=== PATIENT | male | born 1955 | race Caucasian/White ===

== ENCOUNTER → 2019-04-08 14:37 | Outpatient (BNVA) | payer OTHER, SELFPAY | PROVIDERS: Visit Provider Urology | DX: R97.20 Elevated prostate specific antigen [PSA] (principal) | CPT/HCPCS: 81001; 84153 ==

== ENCOUNTER 2019-08-10 06:34 | Outpatient (CLI) | payer OTHER, SELFPAY ==
--- NOTE | 2019-08-10 06:52 | US_ITS ---
WS: [id number] RIGHT UPPER QUADRANT ULTRASOUND HISTORY: ELEVATED LABS COMPARISON: None available. Liver: 20.3 cm in length. Markedly enlarged liver with diffuse hepatic steatosis. The entire liver is not well evaluated due to attenuation. No mass or bile duct dilatation. Gallbladder: Prior cholecystectomy. CBD: Not identified. Pancreas: Not visualized. Right kidney: 12.7 cm in length. Normal echogenicity with no mass or hydronephrosis. Aorta and IVC: Not visualized. No ascites. US/US gall bladder [id number] IMPRESSION: 1. Significantly limited evaluation of the RIGHT upper quadrant due to body pino bitus. 2. Prior cholecystectomy. 3. Markedly enlarged liver with hepatic steatosis.
== END 2019-08-10 06:35 | disposition home or self-care (01) ==
PROVIDERS: Family Provider Nurse Practitioner; Visit Provider Nurse Practitioner
DX: R94.5 Abnormal results of liver function studies (principal); R16.0 Hepatomegaly, not elsewhere classified; K76.0 Fatty (change of) liver, not elsewhere classified
CPT/HCPCS: 76705

== ENCOUNTER → 2019-08-13 15:15 | Outpatient (BNVA) | payer OTHER, SELFPAY | PROVIDERS: Family Provider Nurse Practitioner; Referring Provider Nurse Practitioner; Visit Provider Specialist | DX: M25.562 Pain in left knee (principal) | CPT/HCPCS: 73560; 73565 ==

== ENCOUNTER 2020-03-21 06:25 | Outpatient (CLI) | payer OTHER, SELFPAY ==
--- NOTE | 2020-03-21 06:34 | ECG_ITS ---
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 Interpretive Statements NAME OF STUDY: LEXISCAN SESTAMIBI STRESS TEST INDICATION: Chest Pain PROCEDURE: At the baseline, the EKG revealed normal sinus rhythm with some nonspecific T wave changes.. The baseline blood pressure was 176/93 mm Hg with a heart rate of 66 beats/min. Lexiscan was infused over a period of 20 seconds. A total of 0.4 milligrams of Lexiscan was infused. The stress phase was continued for a total of 5 minutes. Heart rate at the end of the stress phase was 76 with a blood pressure 188/90. The EKG at the peak infusion revealed no significant changes. Sestamibi was injected 20 seconds after the Lexiscan infusion. Blood pressure at the end of the recovery phase was 169/86 with a heart rate of 75 per minute. CONCLUSION: 1. No significant EKG changes with the LexiScan infusion 2. No LexiScan induced chest pain or cardiac arrhythmia 3. Normal blood pressure and heart rate response 4. Sestamibi/sestamibi perfusion scan pending; see separate report. Electronically Signed On 03-31-2020 9:39:57 REEL WINDER by Poonam Calderon M.D. [email or web address]
--- NOTE | 2020-03-21 06:35 | NMCV_ITS ---
NM edie perf SPECT r/s* [id number] Cristina Tan Age: 64 Gender: M : 1955 Exam Date: 03/21/2020 07:50 Ordering Phys: Poonam Calderon MD ([email or web address]) Technologist: JACKIE Crump Exam Location: [facility] Indications: CHEST PAIN STRESS TEST Please see separate stress test report in [facility] for full findings IMAGE PROTOCOL Rest/Stress 1 Lexiscan Day Radiopharmaceutical Dose (mCi) Administration Site Administered by Rest: Tc-99m 11.0 IV JACKIE Crump Sestamibi Stress:Tc-99m 33.0 IV JACKIE De Guzman Sestamibi Rest: 21-Mar-2020 60 Discovery 630 Stress: 21-Mar-2020 30 Discovery 630 0.4mg Lexiscan. Supine position only as patient was unable to lay prone. SPECT RESULTS Technical Quality: Good Raw Data Analysis: Soft tissue attenuation Image Corrections: Patient motion artifact - motion correction applied to rest and stress images. Summed Stress Score: 2 Summed Rest Score: 1 Summed Difference Score: 2 PERFUSION FINDINGS A small area decreased uptake in the mid and apical inferior and in the LV apex. Some reversibility was noted in this region at rest. FUNCTIONAL RESULTS (calculated via Gated SPECT) Stress Image LV EF (%): 60 Stress EDV (mL):129 TID: 1.02 Stress ESV (mL):51 FUNCTIONAL FINDINGS: Segmental wall motion analysis revealed mild hypokinesia of the LV apex IMPRESSIONS 1. Myocardial perfusion may revealing a small area of decreased uptake in the mid and apical inferior and LV apex with some reversibility suggestive of ischemia in distribution of the right coronary artery. 2. Normal LV ejection fraction 60%. 3. LV wall motion analysis revealing no gross wall motion normalities. 4. Slightly elevated LV volume. The end-systolic volume was 51 mL No similar previous studies are available for comparison Dr Poonam Calderon MD FAC (Electronically Signed) Final Date: 21 March 2020 18:03 S
[2020-03-21 06:51] VITALS: BMI 48.8
[2020-03-21] MEDS: regadenoson 0.4 Mg/5 ml Syringe IVP (08:32)
[2020-03-21 08:52] VITALS: BP 169/86; PULSE 80
== END 2020-03-21 06:26 | disposition home or self-care (01) ==
LOC: CDL 06:25
PROVIDERS: PCP Nurse Practitioner; Visit Provider Internal Medicine Cardiovascular Disease
DX: R06.02 Shortness of breath (principal); R94.31 Abnormal electrocardiogram [ECG] [EKG]; R07.9 Chest pain, unspecified
CPT/HCPCS: 78452; 93017; A9500; J2785

== ENCOUNTER 2020-03-23 14:16 | Outpatient (CLI) | payer OTHER, SELFPAY ==
--- NOTE | 2020-03-23 15:00 | USCV_ITS ---
Cristina Tan Age: 64 Gender: M : 1955 Exam Date: 03/23/2020 15:13 Ordering Phys: Poonam Calderon MD ([email or web address] Technologist: Yusuf Felix [place] [facility] [place]: FEM POP BY PASS ON RT CLAUDICATION IN BOTH LEGS Risk Factors: Smoker Previous Vascular Surgery: RIGHT LEFT BP: 136.0 / 70.00 BP: 130.0/ 70.00 0 0 Waveform Velocity (cm/s) Velocity (cm/s) Waveform Monophasic 77.2 Iliac Prox 62.8 Monophasic Monophasic Iliac Mid Monophasic 84.9 62.8 Monophasic 69.5 Iliac Distal 104.7 Monophasic Monophasic 80.5 ROUTE RELIEF DRIVER 66.2 Monophasic Monophasic 73.9 SFA Prox 147.6 Monophasic Monophasic SFA Mid 132.1 Monophasic Monophasic SFA Dist 66.8 Monophasic Monophasic 50.7 POP 52.8 Monophasic Monophasic 55.1 SUPERVISOR CELL MAINTENANCE 74.6 Monophasic Monophasic 54.0 DPA 38.5 Monophasic 0.5 ILTTLE 0.5 FINDINGS RT FEM POP BY PASS Patent femoral popliteal bypass graft Seeing LITTLE of 0.5 bilaterally Monophasic waveforms bilaterally CONCLUSIONS Abnormal resting ABIs bilaterally, consistent with moderately severe peripheral arterial disease Patent femoral-popliteal bypass graft? 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 No similar previous studies are available for comparison Dr Poonam Calderon MD [facility] (Electronically Signed) Final Date: 23 March 2020 18:09 S
--- NOTE | 2020-03-23 15:45 | USCV_ITS ---
Cristina Tan Age: 64 Gender: M : 1955 Exam Date: 03/23/2020 15:43 Ordering Phys: Poonam Calderon MD ([email or web address]) Technologist: Yusuf Felix Exam Location: [facility] [place] Indication: OTHER CHEST PAIN BP: 136 / 70 HR: 72 Rhythm: Sinus Technical Quality: Adequate MEASUREMENTS (Male / Female) Normal Values 2D ECHO LV Diastolic Diameter PLAX 4.7 cm 4.2 - 5.9 / 3.9 - 5.3 cm LV Systolic Diameter PLAX 3.0 cm IVS Diastolic Thickness 1.9 cm 0.6 - 1.0 / 0.6 - 0.9 cm IVS Systolic Thickness 2.5 cm LVPW Diastolic Thickness 1.6 cm 0.6 - 1.0 / 0.6 - 0.9 cm LVPW Systolic Thickness 1.8 cm LVOT Diameter 2.0 cm LV Ejection Fraction 2D Teich 61.6 % LV Ejection Fraction MOD 2C 53.7 % LV Ejection Fraction 2C AL 54.4 % LA Diameter 3.5 cm LA Width 4.6 cm LA Height 5.2 cm RA Width 4.0 cm RA Height 4.8 cm Aorta at Sinotubular Diameter 2.9 cm M-MODE LV Diastolic Diameter MM 5.1 cm 4.2 - 5.9 / 3.9 - 5.3 cm LV Systolic Diameter MM 4.8 cm LV Ejection Fraction MM Teich 12.7 % IVS Diastolic Thickness MM 1.2 cm 0.6 - 1.0 / 0.6 - 0.9 cm IVS Systolic Thickness MM 2.0 cm LVPW Diastolic Thickness MM 1.0 cm 0.6 - 1.0 / 0.6 - 0.9 cm LVPW Systolic Thickness MM 1.8 cm Aortic Annulus Diameter 3.1 cm LA Ao Ratio MM 1.1 MV E Point Septal Separation 0.7 cm DOPPLER AV Peak Velocity 134.0 cm/s LVOT Peak Velocity 107.0 cm/s AV Area Cont Eq vti 2.6 cm squared AV Area Cont Eq pk 2.6 cm squared MV Area PHT 2.9 cm squared Mitral E to A Ratio 0.9 MV E' Velocity 35.5 cm/s Mitral E to MV E' Ratio 7.6 Mitral E to LV E' Lateral Ratio 8.3 Mitral E to LV E' Septal Ratio 7.1 TR Peak Velocity 150.3 cm/s TR Peak Gradient 9.0 mmHg PV Peak Velocity 78.0 cm/s RV Acceleration Time 0.1 s RV Ejection Time 0.3 s RV AcT/ET 0.4 FINDINGS Left Ventricle Possibly normal LV size and ejection fraction. Segmental wall motion analysis difficult because of the poor ultrasonic window.Grade I/IV diastolic dysfunction (abnormal relaxation filling pattern), normal to mildly elevated filling pressures. Right Ventricle The right ventricle is normal in size and function. Right Atrium The right atrium is normal in size. Left Atrium Mildly increased left atrial size. Mitral Valve Thickened mitral valve. Mild mitral annular calcification. Aortic Valve No gross abnormalities noted Tricuspid Valve No gross abnormalities noted Pulmonic Valve Trace pulmonary valve regurgitation. Pericardium Normal pericardium without effusion. Aorta Normal ascending aorta dimension. CONCLUSIONS Possibly normal LV size and ejection fraction. Segmental wall motion analysis difficult because of the poor ultrasonic window. Thickened mitral valve. Mild mitral annular calcification. Some features of grade 1 left ventricular diastolic dysfunction Mildly increased left atrial size. There is no pericardial effusion. No previous study is available for comparison. Dr Poonam Calderon MD [facility] (Electronically Signed) Final Date: 23 March 2020 18:19 S
== END 2020-03-23 14:17 | disposition home or self-care (01) ==
LOC: US 14:17
PROVIDERS: PCP Nurse Practitioner; Visit Provider Internal Medicine Cardiovascular Disease
DX: I70.0 Atherosclerosis of aorta (principal); I70.92 Chronic total occlusion of artery of the extremities; R07.89 Other chest pain; I73.9 Peripheral vascular disease, unspecified; R94.31 Abnormal electrocardiogram [ECG] [EKG]; I51.7 Cardiomegaly
CPT/HCPCS: 93306; 93925

== ENCOUNTER 2020-04-19 12:59 | Emergency (ER) | payer OTHER, SELFPAY ==
[2020-04-19 13:21] VITALS: BP 149/82; PULSE 114; RESP 22; TEMP 36.9; O2SAT 94; BMI 44.6
--- NOTE | 2020-04-19 14:04 | ED_ITS ---
HPI - Extremity Problem General: Chief complaint: Extremity Problem,Nontraumatic Stated complaint: BILATERAL CALF PAIN Time Seen by Provider: 04/19/20 14:04 History of Present Illness: HPI Narrative: Patient is a 65-year-old male who comes to the ED with bilateral leg pain and abdominal pain. Past medical history of PVD, diabetes type 2 and diabetic peripheral neuropathy. Patient has been dealing with nontraumatic bilateral leg pain for the past 3 to 4 months. Pain worsens when ambulating. He rates the pain 10 out of 10. He was recently seen by Dr. Calderon diagnosed with peripheral vascular disease. Ultrasound of his lower extremities were performed about a month ago and he has not heard anything back from a doctor about the results. Denies any erythema, edema or warmth and lower extremities. Patient is also having some abdominal pain in the epigastric region. He says this has been going on for the past 3 weeks. He does report increase in some belching. Associated symptoms: Deny chest pain, fever(s) or rash Review of Systems Const: Denies: fever(s), chills or fatigue Eyes: Denies: change in vision or eye discomfort ENMT: Denies: throat pain, odynophagia, nasal discharge or nasal congestion Card: Denies: chest pain, palpitations, edema, swelling of feet/ankles, dyspnea on exertion or orthopnea Resp: Denies: dyspnea, productive cough or non-productive cough GI: Reports: abdominal pain (Epigastric pain); Denies: nausea, vomiting, diarrhea, constipation or hematochezia : Denies: flank pain, difficulty urinating, dysuria or hematuria Musc: Reports: extremity pain (Bilateral lower extremity pain.); Denies: neck pain, back pain or extremity swelling Skin/Breast: Denies: rash or new lesions Neuro: Denies: headache(s), numbness in extremities or weakness in extremities PFS ED PFSH: Medical History Elevated PSA Essential hypertension GERD (gastroesophageal reflux disease) Hx of type 2 diabetes mellitus Obesity PVD (peripheral vascular disease) Sleep apnea Surgical History History of back surgery S/P cataract surgery S/P cholecystectomy S/P inguinal hernia repair S/P knee surgery S/P rotator cuff repair Family History Father , 80 Chronic kidney disease (CKD) Diabetes Mother Hypertension Diabetes CAD (coronary artery disease) Social History Smoking and tobacco status: current every day smoker Alcohol intake: never Adopted: No Caregiver/support person: No Lives independently: No Household members: spouse Marital status: Current occupational status: disabled History of recent travel: No Current gender identity: Male Physical Exam Const: COMMON NORMALS: no acute distress, patient oriented x3 and alert GENERAL APPEARANCE: cooperative and comfortable NUTRITIONAL APPEARANCE: obese morbidly obese HENMT: COMMON NORMALS: normocephalic HEAD & SCALP: normocephalic MOUTH: Normal oral and palatal mucosa present THROAT: posterior oropharynx normal and uvula midline Neck/C-Spine: COMMON NORMALS: supple GENERAL: Yes normal visual inspection Resp: COMMON NORMALS: normal respiratory effort, No retractions, No use of accessory muscles and clear to auscultation bilaterally AUSCULTATION: clear to auscultation bilaterally Cardio: COMMON NORMALS: regular rate, regular rhythm, S1 normal heart sound present, S2 normal heart sound present, No gallops present (Cardio), No clicks present (Cardio), No murmurs present (Cardio) and Peripheral pulses 2+ throughout RATE: regular rate RHYTHM: regular rhythm HEART SOUNDS: S1 normal heart sound present and S2 normal heart sound present PERIPHERAL PULSES: Peripheral pulses 2+ throughout GI: COMMON NORMALS: Normal to inspection, nondistended, normoactive bowel sounds present, Soft to palpation and no masses INSPECTION: Yes central obesity PALPATION: Yes Soft to palpation and Yes Tenderness to palpation present (GI) (Epigastric tenderness mild) : COMMON NORMALS: Yes no CVA tenderness BLADDER/KIDNEY EXAM: Yes no CVA tenderness Back/Pelvis: COMMON NORMALS: no CVA tenderness Extremity: COMMON NORMALS: normal to inspection Neuro: COMMON NORMALS: patient oriented x3 and moves all extremities SENSORIUM/ORIENTATION: Yes alert Skin: GENERAL SKIN EXAM: dry skin Course Reevaluation(s): Reevaluation #1: Patient's epigastric pain improved greatly after getting GI cocktail here in the ED. His bilateral leg pain improved with IV Dilaudid. Patient is lying comfortably in exam bed and in no acute pain or d istress currently. Time: 16:48 Vital Signs: Vital signs: Vital Signs Temperature 98.5 F 04/19/20 13:21 Pulse Rate 119 H 04/19/20 17:42 Respiratory Rate 14 04/19/20 17:42 Blood Pressure 148/76 04/19/20 17:42 Pulse Oximetry 95 04/19/20 17:42 MDM - Extremity (Nontraumatic) MDM Narrative: Medical decision making narrative: Patient is a 65-year-old male who comes to the ED with bilateral leg pain and epigastric pain. Patient has a past medical history of peripheral vascular disease, GERD, type 2 diabetes. Vital signs stable. Exam findings -epigastric tenderness upon palpation. Lower extremities appear unremarkable and there is no erythema, warmth and pedal pulse 2+ bilaterally. CBC was unremarkable. Sodium 130 and potassium 3.3 rest of CBC and CMP was unremarkable. H. pylori negative ultrasound duplex arterial lower extremities bilaterally shows ABIs of 0.9 and left and 0.7 and right. No other acute changes compared to ultrasound of arterial lower extremities done on March 23, 2020. Patient was given GI cocktail and epigastric pain completely resolved. He was given IV Dilaudid to help with his lower extremity pain and the symptoms greatly improved. He was also given half a liter of fluids. Patient diagnosed with GERD, hyponatremia and peripheral vascular disease. He was discharged home with a prescription for Carafate and some tramadol for pain. Patient is currently being scheduled to see a vascular surgeon through the [facility]. Return to ED precautions given. Patient understood agree with plan. Lab Data: Attestation: I reviewed the patient's lab results. Labs: Lab Results 04/19/20 04/19/20 04/19/20 Range/Units 15:05 15:05 15:05 WBC 7.6 (4.0-10.0) 10^3/ uL RBC 5.21 (4.1-5.3) 10^6/u L Hgb 16.4 (11.7-16.6) g/dL Hct 46.8 (42.0-52.0) % MCV 89.8 (80-94) fL MCH 31.5 (28.0-34.0) pg MCHC 35.0 (30.0-36.0) g/dL RDW 12.7 (12.1-15.1) % Plt Count 273 (130-400) 10^3/c mm MPV 9.4 (7.4-10.4) fL Neut % (Auto) 67.0 % Lymph % (Auto) 17.8 % [place] % (Auto) 13.2 % Eos % (Auto) 0.4 % Baso % (Auto) 0.8 % Neut # (Auto) 5.07 (1.8-7.7) 10^3/u L Lymph # (Auto) 1.4 (0.8-4.8) 10^3/u L [place] # (Auto) 1.0 H (0.2-0.9) 10^3/u L Eos # (Auto) 0.0 (0.0-0.8) 10^3/u L Baso # (Auto) 0.1 (0.0-0.1) 10^3/u L Nucleated RBC % (a uto) 0 % Nucleated RBCs # 0.0 /100WBC Sodium 130 L (136-145) mmol/L Potassium 3.3 L (3.5-5.1) mmol/L Chloride 95 L (98-107) mmol/L Carbon Dioxide 21 L (22-29) mmol/L Anion Gap 17.3 (5-19) BUN 17 (8-23) mg/dL Creatinine 1.0 (0.7-1.2) mg/dL GFR Calculation 75.5 L (90-130) mL/min Glucose 198 H (65-115) mg/dL Calculated Osmolal ity 277 L (285-295) mOsm/k g Calcium 9.6 (8.5-10.5) mg/dL Total Bilirubin 0.6 (0.15-1.2) mg/dL AST 31 (0-40) U/L ALT 22 (0-41) U/L Alkaline Phosphata se 129 (40-130) IU/L Total Protein 8.3 (6.6-8.7) g/dL Albumin 4.2 (3.5-5.2) g/dL Globulin 4.1 (1.3-4.6) g/dL Lipase 18 (13-60) U/L H. pylori IgG Anti body Negative (Negative) Imaging Data^: US Vascular: Attestation: I personally reviewed and interpreted this imaging study as follows: Radiologist's impression: Ultrasound duplex arterial lower extremities bilateral?ABIs 0.9 in left and 0.7 and right. No other acute change compared to ultrasound done on March 23. Discharge Plan Discharge Patient Disposition: Home Clinical Impression: PVD (peripheral vascular disease), Hyponatremia Gastroesophageal reflux disease Qualifiers: Esophagitis presence: esophagitis presence not specified Qualified Code(s): K21.9 - Gastro-esophageal reflux disease without esophagitis Condition: Stable Prescriptions: New sucralfate 1 gram tablet 1 g PO BID 28 Days Qty: 56 RF: 0 No Action bupropion HCl 300 mg tablet extended release 24 hr 300 mg PO QAM RF: 0 losartan 100 mg tablet 100 mg PO DAILY RF: 0 metoprolol succinate 100 mg tablet extended release 24 hr 50 mg PO DAILY RF: 0 nitroglycerin 0.4 mg tablet, sublingual 0.4 mg sublingual Q5M PRN (Reason: chest pain) 30 Days Qty: 30 RF: 3 amlodipine 5 mg tablet 5 mg PO DAILY 30 Days Qty: 30 RF: 5 pantoprazole [Protonix] 40 mg tablet,delayed release (DR/EC) 40 mg PO DAILY Qty: 90 RF: 3 cilostazol 100 mg tablet 100 mg PO BID Qty: 60 RF: 5 omeprazole 40 mg Capsule,Delayed Release(Dr/Ec) 40 mg PO DAILY RF: 0 ibuprofen 200 mg Tablet 1,000 mg PO PRN RF: 0 metformin 500 mg Tablet Extended Release 24 Hr 1,000 mg PO DAILY RF: 0 gabapentin 300 mg Tablet 300 mg PO TID RF: 0 isosorbide mononitrate 30 mg tablet extended release 24 hr 30 mg PO DAILY PRN (Reason: unknown) RF: 0 Discharge Orders: Discharge ED (Routine); Ordered 04/19/20 Ordered By: Neal Harvey Referrals: Evelina Shah FNP [Primary Care Provider] - Discharge Diet: Advance as tolerated Discharge Activity: Increase activity as tolerated Patient Instructions: Hyponatremia (ED), Peripheral Vascular Disorders (ED), Gastroesophageal Reflux Disease (ED) Activity Restrictions/Additional Instructions: Follow-up with medical provider as directed in 3 to 5 days to get sodium lab rechecked. Take medications as prescribed and continue taking all previously prescribed home meds. Return to the ER or your medical provider if condition worsens. Please read and understand discharge instructions. If any questions, please ask. Coding Level of Care Code ED Skin Therapist for Chg Fwd Exam Comprehensive
--- NOTE | 2020-04-19 14:32 | USCV_ITS ---
Cristina Tan Age: 65 Gender: M : 1955 Exam Date: 04/19/2020 15:04 Ordering Phys: Neal Harvey Technologist: Yusuf Felix [place]am [place] [facility] [place] Indication: BILATERAL LEG PAIN Risk Factors: Previous Vascular Surgery: RIGHT LEFT BP: 140.0 / 80.00 BP: 140.0/ 80.00 0 0 Waveform Velocity (cm/s) Velocity (cm/s) Waveform Biphasic 34.2 Iliac Prox 64.1 Monophasic Biphasic 52.8 Iliac Mid 62.1 Monophasic Biphasic Iliac Distal Monophasic 62.1 54.1 Biphasic 54.4 PLANT ENGINEERING SUPERVISOR 51.1 Monophasic Biphasic 59.8 SFA Prox 52.1 Monophasic Biphasic 61.4 SFA Mid 55.1 Monophasic Biphasic 59.0 SFA Dist 51.1 Monophasic Biphasic 55.2 POP 23.2 Monophasic Monophasic 41.5 HOT STAMP OPERATOR 20.8 Monophasic Monophasic 45.1 DPA 30.5 Monophasic 0.9 LITTLE 0.8 FINDINGS Slightly diminished resting ABIs bilaterally Abnormal arterial Doppler waveforms CONCLUSIONS Features of mild peripheral artery disease bilaterally based on the resting ABIs. The abnormal Doppler waveforms, may suggest a more severe arterial disease on the left side Consider exercise LITTLE to better evaluate the functional significance, if clinically indicated Dr Poonam Calderon MD [facility] (Electronically Signed) Final Date: 20 April 2020 09:27 S
[2020-04-19 15:14] LABS: Basophils # 0.1 10^3/uL (0.0-0.1); Basophils % 0.8 %; Eosinophils % 0.4 %; Hematocrit 46.8 % (42.0-52.0); Hemoglobin 16.4 g/dL (11.7-16.6); Lymphocytes # 1.4 10^3/uL (0.8-4.8); Lymphocytes % 17.8 %; Mean Corpuscular Hemoglobin 31.5 pg (28.0-34.0); Mean Corpuscular Volume 89.8 fL (80-94); Mean Platelet Volume 9.4 fL (7.4-10.4); Monocytes % 13.2 %; Neutrophils # 5.07 10^3/uL (1.8-7.7); Nucleated Red Blood Cells % 0 %; Platelet Count 273 10^3/cmm (130-400); Red Blood Count 5.21 10^6/uL (4.1-5.3); Red Cell Distribution Width 12.7 % (12.1-15.1); White Blood Count 7.6 10^3/uL (4.0-10.0)
[2020-04-19 15:42] VITALS: BP 128/57; PULSE 110; RESP 14; O2SAT 94
[2020-04-19 15:43] LABS: Alanine Aminotransferase 22 U/L (0-41); Albumin Level 4.2 g/dL (3.5-5.2); Alkaline Phosphatase 129 IU/L (40-130); Anion Gap 17.3 (5-19); Aspartate Amino Transferase 31 U/L (0-40); Blood Urea Nitrogen 17 mg/dL (8-23); Calcium 9.6 mg/dL (8.5-10.5); Carbon Dioxide 21 mmol/L (22-29); Chloride 95 mmol/L (98-107); Globulin 4.1 g/dL (1.3-4.6); Glomerular Filtration Rate 75.5 mL/min (90-130); Glucose 198 mg/dL (65-115); Lipase 18 U/L (13-60); Osmolality Calculated 277 mOsm/kg (285-295); Potassium 3.3 mmol/L (3.5-5.1); Sodium 130 mmol/L (136-145); Total Bilirubin 0.6 mg/dL (0.15-1.2); Total Protein 8.3 g/dL (6.6-8.7)
[2020-04-19] MEDS: HYDROmorphone 1 mg/mL INJ 1 mL 0.5 MG IVP (15:46)
[2020-04-19] MEDS: ondansetron 2 mg/ML SDV 2 mL 4 MG IVP (15:46)
[2020-04-19] MEDS: lidocaine 2% viscous 15 ML, aluminum-mag hydrox-simethicon 30 ML, sucralfate oral liq 1 GM PO (15:49)
[2020-04-19 16:41] LABS: H. Pylori IgG Antibody Negative (Negative)
--- NOTE | 2020-04-19 16:42 | PC.PHAR ---
pt states his takes care of his medications-pts brought in med bottles except for some of them-pts states she is unsure if the pt is taking the isodorbide and amlodipine-[facility]
[2020-04-19 17:18] VITALS: BP 137/86; PULSE 115; RESP 16; O2SAT 96
[2020-04-19] MEDS: sodium chloride 0.9% 500 ML 999 ML IV (17:18)
[2020-04-19] MEDS: potassium chloride ER 20 mEq Tablet PO (17:18)
[2020-04-19] MEDS: TRAMadol 50 mg Tablet 100 MG PO (17:41)
[2020-04-19 17:42] VITALS: BP 148/76; PULSE 119; RESP 14; O2SAT 95
== END 2020-04-19 17:43 | disposition home or self-care (01) ==
PROVIDERS: Emergency Provider Physician Assistant; PCP Nurse Practitioner
DX: I49.3 Ventricular premature depolarization (principal); E87.1 Hypo-osmolality and hyponatremia; K21.9 Gastro-esophageal reflux disease without esophagitis; Z79.84 Long term (current) use of oral hypoglycemic drugs; I10 Essential (primary) hypertension; E11.9 Type 2 diabetes mellitus without complications; F17.210 Nicotine dependence, cigarettes, uncomplicated
CPT/HCPCS: 80053; 83690; 85025; 86677; 93925; 96361; 96374; 96375; 99283; J1170; J2405; J7040

== ENCOUNTER 2020-05-26 16:44 | Emergency (ER) | payer OTHER, SELFPAY ==
[2020-05-26 16:49] VITALS: BP 194/96; PULSE 88; RESP 18; O2SAT 95; BMI 41.8
--- NOTE | 2020-05-26 17:24 | ED_ITS ---
HPI - Headache General: Chief Complaint: Headache Stated Complaint: H/A - HX OF CLUSTER MIGRAINES, STATES FEELS SAME Time Seen by Provider: 05/26/20 17:24 Source: patient Mode of arrival: ambulatory Limitations: no limitations History of Present Illness: HPI Narrative: 65-year-old male patient comes in today with a cluster migraine headache. Patient reports that he has not had one this bad in a long time. Patient has tried Excedrin Migraine with minimal to no relief. Patient reports have been recurring over the last 2 weeks. Patient appears in moderate pain. Patient reports no vomiting. Patient reports no weakness. MD elicited complaint: migraine Pertinent past history: migraines and hypertension Onset (ago): day(s) Onset description: gradually Location: right Severity: similar to previous episodes Quality & Timing: aching Exacerbating factors: light and noise Relieving factors: nothing Associated symptoms: Reports no associated symptoms Treatments prior to arrival: other (OTC Excedrin) Review of Systems General: Reports: 10 or more systems reviewed and unremarkable except in HPI and below Neuro: Reports: headache(s) PFSH ED PFSH: Medical History Elevated PSA Essential hypertension GERD (gastroesophageal reflux disease) Hx of type 2 diabetes mellitus Obesity PVD (peripheral vascular disease) Sleep apnea Surgical History History of back surgery S/P cataract surgery S/P cholecystectomy S/P inguinal hernia repair S/P knee surgery S/P rotator cuff repair Family History Father , 80 Chronic kidney disease (CKD) Diabetes Mother Hypertension Diabetes CAD (coronary artery disease) Social History Smoking and tobacco status: current every day smoker Alcohol intake: never Adopted: No Caregiver/support person: No Lives independently: No Household members: spouse Marital status: Current occupational status: disabled History of recent travel: No Current gender identity: Male Physical Exam Const: COMMON NORMALS: no acute distress and patient oriented x3 GENERAL APPEARANCE: cooperative HENMT: COMMON NORMALS: normocephalic and Normal external nose present HEAD & SCALP: normal to inspection and normocephalic NOSE: Normal external nose present MOUTH: Normal oral and palatal mucosa present Eye: GENERAL EYE: appearance normal, both eyes and all related structures Neck/C-Spine: COMMON NORMALS: full ROM Lymph: LYMPHATIC: no lymphadenopathy noted Chest: COMMONS NORMALS: normal inspection of the chest Resp: COMMON NORMALS: normal respiratory effort EFFORT & INSPECTION: Yes able to speak in complete sentences Cardio: COMMON NORMALS: regular rate and regular rhythm RATE: regular rate RHYTHM: regular rhythm GI: COMMON NORMALS: non-tender Back/Pelvis: COMMON NORMALS: thoracic and lumbar spine normal to inspection Extremity: COMMON NORMALS: normal to inspection Neuro: COMMON NORMALS: patient oriented x3 and moves all extremities Psych: COMMON NORMALS: mental status grossly normal and cooperative Skin: COMMON NORMALS: no rashes or lesions noted GENERAL SKIN EXAM: no rashes or lesions noted Course ED course: 1800, patient been given 6 mg of subcu Imitrex at 1730, reevaluation continues to have significant headache now with some nausea. We will proceed with further evaluation of a CT imaging of the brain to rule out intracranial bleeding or subarachnoid hemorrhage, who also check labs for any abnormality. Patient will be given Reglan and Benadryl for further treatment of the migraine headache. 1929, patient minimal relief of headache DHE was ordered for patient. 2029, the been 10 minutes since the DHE had been ordered been given to patient. Patient reports minimal relief not much change from prior treatment. 2154, patient reports improvement in headache. Patient wishes to go home to go to sleep. Recommended patient follow-up with primary care for further recommendations of treatment. Vital Signs: Vital signs: Vital Signs Pulse Rate 96 05/26/20 19:13 Respiratory Rate 20 H 05/26/20 21:13 Blood Pressure 199/90 05/26/20 21:14 Pulse Oximetry 92 05/26/20 19:13 MDM - Headache MDM Narrative: Medical decision making narrative: Patient came in today with a persistent headache for 4 to 5 days. Patient reports headache got worse today and he was unable to control it with Excedrin Migraine. Patient has a history of migraine headaches in which he is in the past had to have a injection of Imitrex. On exam patient has no focal neurologic deficits. Respirations are even lungs are clear to auscultation. Skin is warm and dry. Vital signs no elevated blood pressure. Differential diagnosis includes but not limited to migraine headache, hypertensive emergency, cerebral hemorrhage. Laboratory values were unremarkable. EKG showed some left ventricular hypertrophy. CT of the head indicated no intracranial bleeding or other significant abnormality. Patient was treated with several modalities to get better control of his migraine headache. We were able to eradicate the headache in which patient was comfortable to go home. Patient was recommended to follow-up with primary care for further treatment recommendations at home. Patient reported understanding and agreed to plan. Lab Data: Labs: Lab Results 05/26/20 05/26/20 Range/Units 18:20 18:20 WBC 12.4 H (4.0-10.0) 10^3/ uL RBC 4.26 (4.1-5.3) 10^6/u L Hgb 13.4 (11.7-16.6) g/dL Hct 39.8 L (42.0-52.0) % MCV 93.4 (80-94) fL MCH 31.5 (28.0-34.0) pg MCHC 33.7 (30.0-36.0) g/dL RDW 13.2 (12.1-15.1) % Plt Count 389 (130-400) 10^3/c mm MPV 9.2 (7.4-10.4) fL Neut % (Auto) 46.5 % Lymph % (Auto) 35.4 % [place] % (Auto) 10.3 % Eos % (Auto) 6.5 % Baso % (Auto) 0.9 % Neut # (Auto) 5.77 (1.8-7.7) 10^3/u L Lymph # (Auto) 4.4 (0.8-4.8) 10^3/u L [place] # (Auto) 1.3 H (0.2-0.9) 10^3/u L Eos # (Auto) 0.8 (0.0-0.8) 10^3/u L Baso # (Auto) 0.1 (0.0-0.1) 10^3/u L Nucleated RBC % (a uto) 0 % Nucleated RBCs # 0.0 /100WBC Sodium 138 (136-145) mmol/L Potassium 3.5 (3.5-5.1) mmol/L Chloride 101 (98-107) mmol/L Carbon Dioxide 25 (22-29) mmol/L Anion Gap 15.5 (5-19) BUN 10 (8-23) mg/dL Creatinine 0.7 (0.7-1.2) mg/dL GFR Calculation 113.9 (90-130) mL/min Glucose 123 H (65-115) mg/dL Calculated Osmolal ity 286 (285-295) mOsm/k g Calcium 9.4 (8.5-10.5) mg/dL Total Bilirubin 0.6 (0.15-1.2) mg/dL AST 17 (0-40) U/L ALT 12 (0-41) U/L Alkaline Phosphata se 124 (40-130) IU/L Total Protein 7.6 (6.6-8.7) g/dL Albumin 4.2 (3.5-5.2) g/dL Globulin 3.4 (1.3-4.6) g/dL Discharge Plan Discharge Patient Disposition: Home Clinical Impression: Migraine Qualifiers: Migraine type: unspecified Status migrainosus presence: with status migrainosus Intractability: not intractable Qualified Code(s): G43.901 - Migraine, unspecified, not intractable, with status migrainosus Hypertension Qualifiers: Hypertension type: unspecified Qualified Code(s): I10 - Essential (primary) hypertension Condition: Stable Prescriptions: No Action bupropion HCl 300 mg tablet extended release 24 hr 300 mg PO QAM RF: 0 losartan 100 mg tablet 100 mg PO DAILY RF: 0 metoprolol succinate 100 mg tablet extended release 24 hr 50 mg PO DAILY RF: 0 nitroglycerin 0.4 mg tablet, sublingual 0.4 mg sublingual Q5M PRN (Reason: chest pain) 30 Days Qty: 30 RF: 3 amlodipine 5 mg tablet 5 mg PO DAILY 30 Days Qty: 30 RF: 5 pantoprazole [Protonix] 40 mg tablet,delayed release (DR/EC) 40 mg PO DAILY Qty: 90 RF: 3 cilostazol 100 mg tablet 100 mg PO BID Qty: 60 RF: 5 omeprazole 40 mg Capsule,Delayed Release(Dr/Ec) 40 mg PO DAILY RF: 0 ibuprofen 200 mg Tablet 1,000 mg PO PRN RF: 0 metformin 500 mg Tablet Extended Release 24 Hr 1,000 mg PO DAILY RF: 0 gabapentin 300 mg Tablet 300 mg PO TID RF: 0 isosorbide mononitrate 30 mg tablet extended release 24 hr 30 mg PO DAILY PRN (Reason: unknown) RF: 0 Discharge Orders: Discharge ED (Routine); Ordered 05/26/20 Ordered By: Kurt Mendoza Referrals: Evelina Shah FNP [Primary Care Provider] - Discharge Diet: Usual diet Discharge Activity: Increase activity as tolerated Patient Instructions: Migraine Headache (ED), Opioid Safety Activity Restrictions/Additional Instructions: Follow-up with primary care in the morning for further discussion regarding headaches and blood pressure. Continue with routine care as directed. Return to the emergency department for new concerns. Coding Level of Care Code ED Structures Mechanic for Chg Fwd Exam Comprehensive
[2020-05-26] MEDS: SUMAtriptan 6 mg/0.5 mL SDV SUBCUT (17:43)
[2020-05-26 17:47] VITALS: BP 190/92; PULSE 84; RESP 18; O2SAT 95
--- NOTE | 2020-05-26 18:05 | CTR_ITS ---
PROCEDURE INFORMATION: Exam: CT Head Without Contrast Exam date and time: 05/26/2020 6:34 PM Age: 65 years old Clinical indication: Pain; Headache; Cluster; Additional info: Severe headache x 2 weeks TECHNIQUE: Imaging protocol: Computed tomography of the head without contrast. Radiation optimization: All CT scans at this facility use at least one of these dose optimization techniques: automated exposure control; mA and/or kV adjustment per patient size (includes targeted exams where dose is matched to clinical indication); or iterative reconstruction. COMPARISON: No relevant prior studies available. RADIATION DOSE METRICS: Total DLP (mGy-cm): 1881.53 FINDINGS: Brain: There is moderate cerebral atrophy. No intracranial mass. No intracranial hemorrhage. No acute brain ischemia. Brooks matter and white matter interfaces are preserved. No midline shift. Cerebral ventricles: No ventriculomegaly. Bones/joints: Unremarkable. No acute fracture. Paranasal sinuses: Visualized sinuses are unremarkable. No fluid levels. Mastoid air cells: Visualized mastoid air cells are well aerated. Vasculature: Scattered intracranial atherosclerosis. Soft tissues: Unremarkable. CT/CT head wo con* [id number] IMPRESSION: Negative for acute intracranial abnormality. Radiation Dose CTDIVOL = (mGy): DLP = 1881.53 (mGy-cm)
[2020-05-26 18:25] VITALS: BP 185/91
[2020-05-26 18:25] LABS: Basophils # 0.1 10^3/uL (0.0-0.1); Basophils % 0.9 %; Eosinophils # 0.8 10^3/uL (0.0-0.8); Eosinophils % 6.5 %; Hematocrit 39.8 % (42.0-52.0); Hemoglobin 13.4 g/dL (11.7-16.6); Lymphocytes # 4.4 10^3/uL (0.8-4.8); Lymphocytes % 35.4 %; Mean Corpuscular HGB Conc 33.7 g/dL (30.0-36.0); Mean Corpuscular Hemoglobin 31.5 pg (28.0-34.0); Mean Corpuscular Volume 93.4 fL (80-94); Mean Platelet Volume 9.2 fL (7.4-10.4); Monocytes # 1.3 10^3/uL (0.2-0.9); Monocytes % 10.3 %; Neutrophils # 5.77 10^3/uL (1.8-7.7); Neutrophils % 46.5 %; Nucleated Red Blood Cells % 0 %; Platelet Count 389 10^3/cmm (130-400); Red Blood Count 4.26 10^6/uL (4.1-5.3); Red Cell Distribution Width 13.2 % (12.1-15.1); White Blood Count 12.4 10^3/uL (4.0-10.0)
[2020-05-26] MEDS: metoclopramide 5 mg/mL SDV 2 mL 10 MG IVP (18:26)
[2020-05-26] MEDS: fentaNYL 50 mcg/mL INJ 2mL IVP ×2 (18:26→21:13)
[2020-05-26] MEDS: diphenhydrAMINE 50 mg/mL SDV 1mL 25 MG IVP (18:26)
[2020-05-26 18:46] LABS: Alanine Aminotransferase 12 U/L (0-41); Albumin Level 4.2 g/dL (3.5-5.2); Alkaline Phosphatase 124 IU/L (40-130); Anion Gap 15.5 (5-19); Aspartate Amino Transferase 17 U/L (0-40); Blood Urea Nitrogen 10 mg/dL (8-23); Calcium 9.4 mg/dL (8.5-10.5); Carbon Dioxide 25 mmol/L (22-29); Chloride 101 mmol/L (98-107); Creatinine Clr Calc Pharmacy 152.1838; Globulin 3.4 g/dL (1.3-4.6); Glomerular Filtration Rate 113.9 mL/min (90-130); Glucose 123 mg/dL (65-115); Osmolality Calculated 286 mOsm/kg (285-295); Potassium 3.5 mmol/L (3.5-5.1); Sodium 138 mmol/L (136-145); Total Bilirubin 0.6 mg/dL (0.15-1.2); Total Protein 7.6 g/dL (6.6-8.7)
[2020-05-26 19:13] VITALS: BP 135/91; PULSE 96; RESP 18; O2SAT 92
[2020-05-26] MEDS: dihydroergotamine 1 mg/mL Inj IVP (20:30)
[2020-05-26 21:13] VITALS: RESP 20
[2020-05-26] MEDS: promethazine 25 mg/mL SDV 1 mL XX (21:13)
[2020-05-26 21:14] VITALS: BP 199/90
[2020-05-26] MEDS: cloNIDine 0.1 mg Tablet PO (21:14)
== END 2020-05-26 22:22 | disposition home or self-care (01) ==
PROVIDERS: Emergency Provider Nurse Practitioner Family; PCP Nurse Practitioner
DX: G43.901 Migraine, unspecified, not intractable, with status migrainosus (principal); I10 Essential (primary) hypertension; E11.9 Type 2 diabetes mellitus without complications; F17.210 Nicotine dependence, cigarettes, uncomplicated
CPT/HCPCS: 70450; 80053; 85025; 96372; 96374; 96375; 96376; 99284; J1110; J1200; J2550; J2765; J3010; J3030

== ENCOUNTER → 2020-09-07 10:45 | Outpatient (BNVA) | payer OTHER, SELFPAY | PROVIDERS: PCP Nurse Practitioner; Referring Provider Nurse Practitioner; Visit Provider Urology | DX: R97.20 Elevated prostate specific antigen [PSA] (principal) | CPT/HCPCS: 81003; 84153 ==

== ENCOUNTER 2021-02-06 16:18 | Emergency (ER) | payer OTHER, MEDICARE, SELFPAY ==
[2021-02-06 16:40] VITALS: BP 192/92; PULSE 72; RESP 18; TEMP 36.8; O2SAT 96; BMI 44.0
--- NOTE | 2021-02-06 17:11 | CTR_ITS ---
PROCEDURE INFORMATION: Exam: CT Right Lower Extremity Without Contrast, Hip Exam date and time: 02/06/2021 5:11 PM Age: 65 years old Clinical indication: Pain; Hip; Right; Prior surgery; Surgery type: Stents x 3 weeks ago; Additional info: Pain/recent angiogram right groin TECHNIQUE: Imaging protocol: CT of the Right lower extremity without contrast was performed. Exam focused on the hip. Study includes only in the region the right hip and right groin. Radiation optimization: All CT scans at this facility use at least one of these dose optimization techniques: automated exposure control; mA and/or kV adjustment per patient size (includes targeted exams where dose is matched to clinical indication); or iterative reconstruction. COMPARISON: US gall bladder [id number] 08/10/2019 7:06 AM RADIATION DOSE METRICS: Total DLP (mGy-cm): 2365.87 FINDINGS: Bones/joints: No fracture is identified. There is some mild degenerative spurring from the acetabular margins. No acute abnormality. Soft tissues: There are postsurgical changes in the right groin with well-healed scar anteriorly. There is no unusual fluid collection or hematoma identified on this examination. Vasculature: Atherosclerotic calcifications are seen in the femoral vessels. The lower end of right external iliac stent is noted. Lymph nodes: There are small right inguinal lymph nodes. Urinary bladder: There is diffuse thickening of the urinary bladder wall which may represent muscular hypertrophy. Please correlate for any clinical signs or symptoms of urinary tract infection. Impression: Reproductive: The prostate demonstrates moderate nonspecific enlargement. The seminal vesicles are normal. CT/CT hip RT wo con* [id number] IMPRESSION: No fracture is identified.
--- NOTE | 2021-02-06 17:16 | W.ED.EXTPRO ---
HPI - Extremity Problem General: Chief complaint: Extremity Problem,Nontraumatic Stated complaint: Extreme Hip pain sent by [facility] Time Seen by Provider: 02/06/21 17:04 History of Present Illness: HPI Narrative: Patient presents from [facility] with history of angiogram done 2 weeks ago. Patient states he has been having right hip pain groin pain sudden onset since then. Said a hip x-ray done which revealed mild osteoarthritis in the hip. Patient denies any injury. Patient feels it is somewhat swollen but says it is not muscle pain it is definitely more hip pain hurts to walk get up out of chair use extremity. MD Complaint: joint pain Onset (ago): day(s) Pain Consistency: constant Location: right and lower extremity Quality: aching Radiation: distal Relieving factors: immobilization Exacerbating factors: range of motion, weight bearing and walking Associated symptoms: Reports no associated symptoms; Deny chest pain, fever(s) or rash Context: other (Recent angiogram right side groin) Review of Systems Const: Denies: fever(s), chills or body aches Eyes: Denies: change in vision or blurry vision ENMT: Denies: throat pain or nasal congestion Card: Denies: chest pain or dyspnea on exertion Resp: Denies: dyspnea, productive cough or non-productive cough GI: Denies: abdominal pain, nausea or vomiting : Denies: difficulty urinating Musc: Reports: joint pain (Right pelvis); Denies: extremity pain Skin/Breast: Denies: rash Neuro: Denies: headache(s) Psych: Denies: anxiety or depression Cal/Lymph: Denies: easy bruising PFSH ED PFSH: Medical History (Updated 02/06/21 @ 19:13 by BANDAR Leal) Elevated PSA Essential hypertension GERD (gastroesophageal reflux disease) Hx of type 2 diabetes mellitus Obesity PVD (peripheral vascular disease) Sleep apnea Surgical History (Updated 12/27/20 @ 09:02 by Tiffany Esteban RN) History of back surgery S/P cataract surgery S/P cholecystectomy S/P inguinal hernia repair S/P knee surgery S/P rotator cuff repair Family History Father , 80 Chronic kidney disease (CKD) Diabetes Mother , at age 82 Hypertension Diabetes CAD (coronary artery disease) Social History Smoking and tobacco status: current every day smoker Alcohol intake: never Marital status: Current occupational status: disabled History of recent travel: No Physical Exam Const: COMMON NORMALS: no acute distress, average body habitus and patient oriented x3 HENMT: COMMON NORMALS: normocephalic HEAD & SCALP: normal to inspection and normocephalic FACE & SINUS: normal facial exam Eye: COMMON NORMALS: conjunctivae normal GENERAL EYE: appearance normal, both eyes and all related structures CONJUNCTIVA: Yes conjunctivae normal Neck/C-Spine: COMMON NORMALS: no JVD Chest: COMMONS NORMALS: normal inspection of the chest Resp: COMMON NORMALS: normal respiratory effort and clear to auscultation bilaterally AUSCULTATION: clear to auscultation bilaterally Cardio: COMMON NORMALS: no JVD, regular rate and regular rhythm RATE: regular rate RHYTHM: regular rhythm GI: COMMON NORMALS: Normal to inspection, nondistended, normoactive bowel sounds present Extremity: COMMON NORMALS: normal to inspection RIGHT LOWER EXTREMITY: Yes hip joint (Painful) Neuro: COMMON NORMALS: patient oriented x3 Course Vital Signs: Vital signs: Vital Signs Temperature 98.3 F 02/06/21 16:40 Pulse Rate 72 02/06/21 16:40 Respiratory Rate 18 02/06/21 16:40 Blood Pressure 192/92 02/06/21 16:40 Pulse Oximetry 96 02/06/21 16:40 MDM - Extremity (Nontraumatic) MDM Narrative: Medical decision making narrative: Radiology studies negative. Celebrex to care patient's discomfort. X-ray report patient brought with him shows mild arthritis to the hip and the CT confirms spurring at right hip. No evidence of soft tissue damage or pseudo-aneurysm. Vital signs are stable. Patient encouraged to follow-up with the [facility] and already has orthopedic appointment scheduled. Discharge Plan Discharge Patient Disposition: Home Clinical Impression: Hip pain, right Condition: Stable Prescriptions: New Celebrex 100 mg capsule 200 mg PO BID Qty: 20 RF: 0 No Action bupropion HCl 300 mg tablet extended release 24 hr 300 mg PO QAM RF: 0 losartan 100 mg tablet 100 mg PO DAILY RF: 0 metoprolol succinate 100 mg tablet extended release 24 hr 50 mg PO DAILY RF: 0 nitroglycerin 0.4 mg tablet, sublingual 0.4 mg sublingual Q5M PRN (Reason: chest pain) 30 Days Qty: 30 RF: 3 clopidogrel 75 mg tablet 75 mg PO DAILY RF: 0 sumatriptan succinate 100 mg tablet See Rx Instructions PO .COMPLEX RF: 0 levofloxacin 500 mg tablet 500 mg PO DAILY Qty: 4 RF: 0 pantoprazole [Protonix] 40 mg tablet,delayed release (DR/EC) 40 mg PO DAILY Qty: 90 RF: 3 cilostazol 100 mg tablet 100 mg PO BID Qty: 60 RF: 5 oxycodone-acetaminophen [Percocet] 5-325 mg tablet 1 tab PO ONCE PRN (Reason: pain) 1 Days Qty: 1 RF: 0 diazepam 10 mg tablet 10 mg PO ONCE Qty: 1 RF: 0 omeprazole 40 mg Capsule,Delayed Release(Dr/Ec) 40 mg PO DAILY RF: 0 ibuprofen 200 mg Tablet 1,000 mg PO PRN RF: 0 metformin 500 mg Tablet Extended Release 24 Hr 1,000 mg PO DAILY RF: 0 gabapentin 300 mg Tablet 300 mg PO TID RF: 0 isosorbide mononitrate 30 mg tablet extended release 24 hr 30 mg PO DAILY PRN (Reason: unknown) RF: 0 Discharge Orders: Discharge ED (Routine); Ordered 02/06/21 Ordered By: Cleve Cisse Referrals: Evelina Shah FNP [Primary Care Provider] - Discharge Diet: Usual diet Discharge Activity: Increase activity as tolerated Activity Restrictions/Additional Instructions: Follow-up with medical provider as directed. Take medications as prescribed. Return to the ER or your medical provider if condition worsens. Please read and understand discharge instructions. If any questions ask please. Coding Level of Care Code ED Hammer Repairer for Christiano Fwd Exam Comprehensive
[2021-02-06] MEDS: CELEcoxib 200 mg Capsule 400 MG PO (18:41)
== END 2021-02-06 19:16 | disposition home or self-care (01) ==
PROVIDERS: Emergency Provider Nurse Practitioner Family; PCP Nurse Practitioner
DX: M25.551 Pain in right hip (principal); F17.210 Nicotine dependence, cigarettes, uncomplicated; K21.9 Gastro-esophageal reflux disease without esophagitis; E11.9 Type 2 diabetes mellitus without complications; Z79.84 Long term (current) use of oral hypoglycemic drugs; I10 Essential (primary) hypertension
CPT/HCPCS: 73700; 99283

== ENCOUNTER → 2021-04-24 13:54 | Outpatient (BNVA) | payer OTHER, MEDICARE, SELFPAY | PROVIDERS: PCP Nurse Practitioner; Referring Provider Nurse Practitioner; Visit Provider Specialist | DX: M25.559 Pain in unspecified hip (principal) | CPT/HCPCS: 73502 ==

== ENCOUNTER → 2021-06-14 10:04 | Outpatient (BNVA) | payer OTHER, MEDICARE, SELFPAY | PROVIDERS: PCP Nurse Practitioner; Referring Provider Nurse Practitioner; Visit Provider Surgery | DX: R13.10 Dysphagia, unspecified (principal); F17.210 Nicotine dependence, cigarettes, uncomplicated | CPT/HCPCS: 99203 ==

== ENCOUNTER 2021-07-13 07:45 | Day surgery (SDC) | payer OTHER, SELFPAY ==
[2021-07-12 09:21] VITALS: BMI 41.8
[2021-07-13 08:39] VITALS: BP 174/92; PULSE 59; RESP 20; TEMP 36.3; O2SAT 95
[2021-07-13] MEDS: sodium chloride 0.9% 1,000 ML 30 ML IV (09:07)
--- NOTE | 2021-07-13 09:21 | P.ANESASSM_ITS ---
Pre-Anesthetic Assessment Height/Weight: Height 1.8 m Weight 136.078 kg Temp Pulse Resp BP Pulse Ox 97.3 F L 59 L 20 H 174/92 95 07/13/21 08:39 07/13/21 08:39 07/13/21 08:39 07/13/21 08:39 07/13/21 08:39 Preop Diagnosis: Epigastric pain and dysphagia Operation Date: 07/13/21 09:30 Proposed Procedures p EGD 17033/r13.10(Not Applicable) - Kalia Chowdary MD Familial anesthetic complications: none Last intake: Intake Last Liquid Date 07/12/21 Last Liquid Time 22:00 Last Solid Date 07/12/21 Last Solid Time 21:00 Social Tobacco and No alcohol 1 pack(s) per day Exam alert, oriented x 3 and clear to auscultation bilaterally Airway Submandibular: within normal limits Cervical ROM: Other (previous fusion) Mallampati: Class II Dentition: false Pulmonary Chronic Obstructive Pulmonary Disease and Sleep Apnea CV/HEM Hypertension None reported Hepatic None reported GI Gastroesophageal Reflux Disease Dysphagia Metabolic Diabetes Mellitus, Hyperlipidemia and Morbid Obesity [facility] None reported Neuropsych Anxiety, Depression and Headache Anesthetic Plan ASA status: 3 Anesthesia: MAC Medications/Allergies Home Medications Medication Instructions Recorded Confirmed Last Taken Type bupropion HCl 300 mg 24 hr tablet, 300 mg PO QAM 04/08/19 07/13/21 07/12/21 History extended release losartan 100 mg tablet 100 mg PO DAILY 04/08/19 07/13/21 07/12/21 History metoprolol succinate 100 mg 50 mg PO DAILY 04/08/19 07/13/21 07/12/21 History tablet,extended release 24 hr cilostazol 100 mg tablet 100 mg PO BID #60 tab 03/10/20 07/13/21 07/12/21 Rx metformin 500 mg tablet,extended 1,000 mg PO DAILY 04/19/20 07/13/21 07/12/21 History release 24 hr omeprazole 40 mg capsule,delayed 40 mg PO DAILY 04/19/20 07/13/21 07/12/21 History release sumatriptan succinate 100 mg tablet See Rx Instructions PO .COMPLEX 09/07/20 07/13/21 07/12/21 History celecoxib 100 mg capsule (Celebrex) 200 mg PO BID #20 cap 12/07/13/21 07/12/21 Rx aspirin 81 mg tablet,delayed 81 mg PO DAILY 07/12/21 07/13/21 07/12/21 History release multivitamin 1 tab PO DAILY 07/12/21 07/13/21 07/12/21 History Allergies Allergy/AdvReac Type Severity Reaction Status Date / Time dexamethasone Allergy unknown Verified 07/13/21 08:37 hydrocodone Allergy NA Verified 07/13/21 08:37 morphine Allergy NA Verified 07/13/21 08:37 Current Medications Generic Name Dose Route Start Last Admin Trade Name Lawrence PRN Reason Stop Dose Admin Sodium Chloride 1,000 mls @ 30 mls/hr 07/13/21 08:45 07/13/21 09:07 Sodium Chloride 0.9% IV 30 mls/hr .Q24H LANCE Administration PFSH Anesthesia Medical History Elevated PSA Essential hypertension GERD (gastroesophageal reflux disease) Hx of type 2 diabetes mellitus Obesity PVD (peripheral vascular disease) Sleep apnea Surgical History History of back surgery S/P cataract surgery S/P cholecystectomy S/P inguinal hernia repair S/P knee surgery S/P rotator cuff repair Family History Father , 80 Chronic kidney disease (CKD) Diabetes Mother , at age 82 Hypertension Diabetes CAD (coronary artery disease) Social History Smoking and tobacco status: current every day smoker Alcohol intake: never Marital status: Current occupational status: disabled History of recent travel: No Data Anesthesia Cardiac Studies: Echocardiogram Ultrasound 03/23/20 Sestamibi Stress Test (Cardiology) 03/21/20
--- NOTE | 2021-07-13 09:52 | W.PM.OPSUD ---
Surgery/Procedure H&P Update DATE OF PROCEDURE: July 13, 2021 DATE H&P PERFORMED: 06/14/21 H&P UPDATE INFORMATION: I have reviewed H&P completed within last 30 days, I have examined patient prior to procedure and No changes to prior documentation PREOP DIAGNOSIS: Epigastric pain and dysphagia PRIMARY INDICATION FOR PROCEDURE: The same PLANNED PROCEDURE: Operation Date: 07/13/21 09:30 Proposed Procedures p EGD 91208/r13.10(Not Applicable) - Kalia Chowdary MD
[2021-07-13 10:36] VITALS: BP 145/59; PULSE 66; RESP 20; TEMP 36.4; O2SAT 94
[2021-07-13 10:41] VITALS: BP 145/73; PULSE 64; RESP 20; O2SAT 94
[2021-07-13 10:50] VITALS: BP 157/77; PULSE 58; RESP 20; O2SAT 96
--- NOTE | 2021-07-13 14:27 | ANE.PACU2 ---
Inpatient post-anesthesia follow up: Airway intact: Yes Vital signs: Temperature 97.5 F Pulse Rate 58 Respiratory Rate 20 Blood Pressure 157/77 Pulse Oximetry 96 Oxygen Delivery Me thod Room Air Oxygen Flow Rate Fraction of Inspir ed Oxygen Hydration adequate: Yes Nausea and vomiting: No Pain level: 1 Mental status: Baseline
== END 2021-07-13 11:08 | disposition home or self-care (01) ==
PROVIDERS: PCP Nurse Practitioner; Visit Provider Surgery
PROC: 0DJ08ZZ Inspection of Upper Intestinal Tract, Via Natural or Artificial Opening Endoscopic (ICD-10-PCS; CPT 43235; principal; 2021-07-13 09:30)
DX: R13.10 Dysphagia, unspecified (principal); R10.13 Epigastric pain; K21.00 Gastro-esophageal reflux disease with esophagitis, without bleeding; K29.70 Gastritis, unspecified, without bleeding; F17.200 Nicotine dependence, unspecified, uncomplicated; I10 Essential (primary) hypertension; J44.9 Chronic obstructive pulmonary disease, unspecified; G47.30 Sleep apnea, unspecified; E11.9 Type 2 diabetes mellitus without complications; E78.5 Hyperlipidemia, unspecified; E66.01 Morbid (severe) obesity due to excess calories; Z68.41 Body mass index [BMI] 40.0-44.9, adult; Z79.82 Long term (current) use of aspirin
CPT/HCPCS: 43239; 88305; J2704; J7030

== ENCOUNTER → 2021-08-02 09:19 | Outpatient (BNVA) | payer OTHER, SELFPAY | PROVIDERS: PCP Nurse Practitioner; Visit Provider Surgery | DX: Z09 Encounter for follow-up examination after completed treatment for conditions other than malignant neoplasm (principal); K20.90 Esophagitis, unspecified without bleeding | CPT/HCPCS: 99213 ==

== ENCOUNTER 2022-01-01 07:15 | Day surgery (SDC) | payer OTHER, SELFPAY ==
[2021-12-28 10:04] VITALS: BMI 44.6
[2022-01-01 07:43] VITALS: BP 193/90; PULSE 79; RESP 18; TEMP 36.8; O2SAT 96
[2022-01-01] MEDS: sodium chloride 0.9% 1,000 ML 30 ML IV (07:48)
[2022-01-01 07:52] LABS: Glucose Point of Care 196 mg/dL (70-110)
--- NOTE | 2022-01-01 07:55 | P.HP_ITS ---
Same Day Surgery H&P Indication for Procedure/HPI DATE OF PROCEDURE: January 01, 2022 CHIEF COMPLAINT/INDICATIONFOR SURGICAL PROCEDURE: Hematochezia PREOP DIAGNOSIS: Hematochezia PLANNED PROCEDURE: Operation Date: 01/01/22 09:00 Proposed Procedures p Colonoscopy 32372,K92.1(Not Applicable) - Luis Galan MD Medications/Allergies* Home Medications Medication Instructions Recorded Confirmed Type losartan 100 mg tablet 100 mg PO DAILY 04/08/19 01/01/22 History metoprolol succinate 100 mg 50 mg PO DAILY 04/08/19 01/01/22 History tablet,extended release 24 hr metformin 500 mg tablet,extended 1,000 mg PO DAILY 04/19/20 01/01/22 History release 24 hr omeprazole 40 mg capsule,delayed 40 mg PO DAILY 04/19/20 01/01/22 History release sumatriptan succinate 100 mg tablet See Rx Instructions PO .COMPLEX 09/07/20 01/01/22 History aspirin 81 mg tablet,delayed 81 mg PO DAILY 07/12/21 01/01/22 History release Fish Oil 1 tab PO DAILY 12/28/21 01/01/22 History Allergies/Adverse Reactions Allergy/AdvReac Type Severity Reaction Status Date / Time dexamethasone Allergy unknown Verified 01/01/22 07:32 hydrocodone Allergy NA Verified 01/01/22 07:32 morphine Allergy NA Verified 01/01/22 07:32 Current Medications: Generic Name Dose Route Start Last Admin Trade Name Freq PRN Reason Stop Dose Admin Sodium Chloride 1,000 mls @ 30 mls/hr 01/01/22 07:30 01/01/22 07:48 Sodium Chloride 0.9% IV 30 mls/hr .Q24H LANCE Administration Pertinent History/Comorbid Conditions* Medical History (Updated 12/26/21 @ 15:44 by Luis Galan MD) Elevated PSA Essential hypertension GERD (gastroesophageal reflux disease) Hx of type 2 diabetes mellitus Obesity PVD (peripheral vascular disease) Sleep apnea Surgical History (Updated 04/08/19 @ 14:45 by Zara Tate APRN) History of back surgery S/P cataract surgery S/P cholecystectomy S/P inguinal hernia repair S/P knee surgery S/P rotator cuff repair Family History (Updated 04/02/19 @ 16:31 by Isabella Bernal RN) Father, 80 Mother, at age 82 Diabetes Father Mother CAD (coronary artery disease) Mother Chronic kidney disease (CKD) Father Hypertension Mother Social History Smoking and tobacco status: current every day smoker Alcohol intake: never Marital status: Current occupational status: disabled History of recent travel: No Pertinent Exam Findings alert, oriented x 3, clear to auscultation bilaterally, regular rate & rhythm, operative site marked and procedure specific exam findings Recommendations Surgery/Procedure today Coding Level of Care Code Acute 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
--- NOTE | 2022-01-01 07:57 | ANES.PREANE2 ---
Pre-Anesthetic Assessment Height/Weight: Height 1.8 m Weight 145.15 kg Temp Pulse Resp BP Pulse Ox O2 Del Method 98.3 F 79 18 193/90 96 01/01/22 07:43 01/01/22 07:43 01/01/22 07:43 01/01/22 07:43 01/01/22 07:43 01/01/22 07:43 Preop Diagnosis: Hematochezia Operation Date: 01/01/22 09:00 Proposed Procedures p Colonoscopy 76255,K92.1(Not Applicable) - Luis Galan MD Familial anesthetic complications: None Was Beta Twin taken within 24 hours: Yes Was Clonidine taken within 24 hours: N/A Last intake: Intake Last Liquid Date 12/31/21 Last Liquid Time 23:00 Last Solid Date 12/30/21 Last Solid Time 20:00 Social Tobacco and No alcohol Exam alert, oriented x 3, clear to auscultation bilaterally and regular rate & rhythm Airway Mallampati: Class IV Dentition: false Comments: Comments: full martin Pulmonary Chronic Obstructive Pulmonary Disease and Sleep Apnea CV/HEM Hypertension and Peripheral Vascular Disease GI Gastroesophageal Reflux Disease Metabolic Diabetes Mellitus, Hyperlipidemia and Morbid Obesity Anesthetic Plan ASA status: 3 Anesthesia: MAC Risk of > 500 ml blood loss (7ml/kg in children): No Medications/Allergies Home Medications Medication Instructions Recorded Confirmed Last Taken Type losartan 100 mg tablet 100 mg PO DAILY 04/08/19 01/01/22 12/31/21 History metoprolol succinate 100 mg 50 mg PO DAILY 04/08/19 01/01/22 12/31/21 History tablet,extended release 24 hr cilostazol 100 mg tablet 100 mg PO BID #60 tabs 03/10/20 01/01/22 12/31/21 Rx metformin 500 mg tablet,extended 1,000 mg PO DAILY 04/19/20 01/01/22 12/31/21 History release 24 hr omeprazole 40 mg capsule,delayed 40 mg PO DAILY 04/19/20 01/01/22 12/31/21 History release sumatriptan succinate 100 mg tablet See Rx Instructions PO .COMPLEX 09/07/20 01/01/22 12/31/21 History celecoxib 100 mg capsule (Celebrex) 200 mg PO BID #20 caps 02/06/21 01/01/22 12/31/21 Rx aspirin 81 mg tablet,delayed 81 mg PO DAILY 07/12/21 01/01/22 12/31/21 History release Fish Oil 1 tab PO DAILY 12/28/21 01/01/22 12/31/21 History Allergies Allergy/AdvReac Type Severity Reaction Status Date / Time dexamethasone Allergy unknown Verified 01/01/22 07:32 hydrocodone Allergy NA Verified 01/01/22 07:32 morphine Allergy NA Verified 01/01/22 07:32 Current Medications Generic Name Dose Route Start Last Admin Trade Name Lawrence PRN Reason Stop Dose Admin Sodium Chloride 1,000 mls @ 30 mls/hr 01/01/22 07:30 01/01/22 07:48 Sodium Chloride 0.9% IV 30 mls/hr .Q24H LANCE Administration PFSH Anesthesia Medical History Elevated PSA Essential hypertension GERD (gastroesophageal reflux disease) Hx of type 2 diabetes mellitus Obesity PVD (peripheral vascular disease) Sleep apnea Surgical History History of back surgery S/P cataract surgery S/P cholecystectomy S/P inguinal hernia repair S/P knee surgery S/P rotator cuff repair Family History Father , 80 Chronic kidney disease (CKD) Diabetes Mother , at age 82 Hypertension Diabetes CAD (coronary artery disease) Social History Smoking and tobacco status: current every day smoker Alcohol intake: never Marital status: Current occupational status: disabled History of recent travel: No Data Anesthesia Cardiac Studies: Echocardiogram Ultrasound 03/23/20 Sestamibi Stress Test (Cardiology) 03/21/20
[2022-01-01 09:57] VITALS: BP 162/77; PULSE 83; RESP 16; TEMP 36.3; O2SAT 96
--- NOTE | 2022-01-01 13:13 | ANE.PACU2 ---
Inpatient post-anesthesia follow up: Airway intact: Yes Vital signs: Temperature 97.3 F Pulse Rate 83 Respiratory Rate 16 Blood Pressure 162/77 Pulse Oximetry 96 Oxygen Delivery Me thod Nasal Cannula Oxygen Flow Rate 3 Fraction of Inspir ed Oxygen Hydration adequate: Yes Nausea and vomiting: No Pain level: 1 Mental status: Baseline
== END 2022-01-01 10:25 | disposition home or self-care (01) ==
PROVIDERS: PCP Nurse Practitioner; Visit Provider Internal Medicine
PROC: 0DJD8ZZ Inspection of Lower Intestinal Tract, Via Natural or Artificial Opening Endoscopic (ICD-10-PCS; CPT 45378; principal; 2022-01-01 09:00)
DX: K92.1 Melena (principal); D12.3 Benign neoplasm of transverse colon; J44.9 Chronic obstructive pulmonary disease, unspecified; G47.30 Sleep apnea, unspecified; I10 Essential (primary) hypertension; K21.9 Gastro-esophageal reflux disease without esophagitis; E11.9 Type 2 diabetes mellitus without complications; E78.5 Hyperlipidemia, unspecified; E66.01 Morbid (severe) obesity due to excess calories; Z68.41 Body mass index [BMI] 40.0-44.9, adult; Z79.84 Long term (current) use of oral hypoglycemic drugs; E66.9 Obesity, unspecified; F17.210 Nicotine dependence, cigarettes, uncomplicated
CPT/HCPCS: 36416; 45385; 82962; 88305; J2704; J7030

== ENCOUNTER → 2022-04-25 12:46 | Outpatient (BNVA) | payer OTHER, SELFPAY | PROVIDERS: PCP Nurse Practitioner; Visit Provider Internal Medicine Pulmonary Disease | DX: J44.9 Chronic obstructive pulmonary disease, unspecified (principal); E66.01 Morbid (severe) obesity due to excess calories; Z68.42 Body mass index [BMI] 45.0-49.9, adult; G47.33 Obstructive sleep apnea (adult) (pediatric); R91.1 Solitary pulmonary nodule; Z71.6 Tobacco abuse counseling; J45.909 Unspecified asthma, uncomplicated; F17.210 Nicotine dependence, cigarettes, uncomplicated; R06.02 Shortness of breath | CPT/HCPCS: 36415; 82785; 85025; 86003; 99204 ==

== ENCOUNTER 2022-10-13 19:27 | Emergency (ER) | payer OTHER, SELFPAY ==
[2022-10-13 19:37] VITALS: BP 217/84; PULSE 61; RESP 20; TEMP 36.7; O2SAT 94; BMI 46.5
--- NOTE | 2022-10-13 20:00 | ECG_ITS ---
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 Measurements Intervals [place] Rate: 67 P: -78 VT: 143 QRS: -79 QRSD: 123 T: -88 QT: 420 QTc: 445 Interpretive Statements ECTOPIC ATRIAL RHYTHM POSSIBLE LEFT ATRIAL ENLARGEMENT [-0.1mV P-WAVE IN V1/V2] LEFT AXIS DEVIATION [QRS AXIS < -30] MODERATE INTRAVENTRICULAR CONDUCTION DELAY [110+ ms QRS DURATION] ST DEVIATION AND MODERATE T-WAVE ABNORMALITY, CONSIDER ANTERIOR ISCHEMIA [-0.1+ mV T-WAVE IN V3/V4] No previous ECG available for comparison Electronically Signed On 10-14-2022 15:20:46 CDT by Preston Bangura M.D. [id number]
--- NOTE | 2022-10-13 20:00 | XRR_ITS ---
PROCEDURE INFORMATION: Exam: XR Chest Exam date and time: 10/13/2022 8:59 PM Age: 67 years old Clinical indication: Shortness of breath; Additional info: SOA, back pain with breathing TECHNIQUE: Imaging protocol: Radiologic exam of the chest. Views: 1 view. COMPARISON: CT lung screening [id number] 12/06/2021 11:52 AM FINDINGS: Lungs: Mild left basilar atelectasis and/or pneumonia. Pleural spaces: Unremarkable. No pleural effusion. No pneumothorax. Heart/Mediastinum: Unremarkable. No cardiomegaly. Bones/joints: Stable postoperative metallic fixation of the cervical spine with or without metallic artifact. 3.2 cm oval-shaped mass over the left anterior 1st rib and versus left anterior 1st rib arthritic articulation with the manubrium. XR/XR chest 1V 11534 IMPRESSION: 1. Mild left basilar atelectasis and/or pneumonia. 2. 3.2 cm oval-shaped mass over the left anterior 1st rib and versus left anterior 1st rib arthritic articulation with the manubrium.
[2022-10-13 22:12] LABS: Basophils # 0.1 10^3/uL (0.0-0.1); Basophils % 0.6 %; Eosinophils # 0.3 10^3/uL (0.0-0.8); Eosinophils % 1.8 %; Hematocrit 41.1 % (37-53); Lymphocytes # 4.7 10^3/uL (0.8-4.8); Lymphocytes % 32.4 %; Mean Corpuscular HGB Conc 33.6 g/dL (30-55); Mean Corpuscular Hemoglobin 29.4 pg (27-33); Mean Corpuscular Volume 87.4 fl (82-101); Mean Platelet Volume 9.4 fL (7.4-10.4); Monocytes # 1.3 10^3/uL (0.2-0.9); Monocytes % 9.1 %; Neutrophils # 8.12 10^3/uL (1.8-7.7); Neutrophils % 55.7 %; Nucleated Red Blood Cells % 0 %; Platelet Count 387 10^3/cmm (157-399); Red Cell Distribution Width 13.8 % (12.1-15.1); White Blood Count 14.58 10^3/uL (3.29-11.43)
[2022-10-13 22:31] LABS: Alanine Aminotransferase 11 U/L (0-41); Albumin Level 4.3 g/dL (3.5-5.2); Alkaline Phosphatase 230 U/L (40-130); Anion Gap 12.9 (5-19); Aspartate Amino Transferase 19 U/L (0-40); Blood Urea Nitrogen 17 mg/dL (8-23); Calcium 9.7 mg/dL (8.5-10.5); Carbon Dioxide 27 mmol/L (22-29); Chloride 102 mmol/L (98-107); Globulin 3.7 g/dL (1.3-4.6); Glucose 157 mg/dL (65-115); Osmolality Calculated 291 mOsm/kg (285-295); Potassium 3.9 mmol/L (3.5-5.1); Sodium 138 mmol/L (136-145); Total Bilirubin 0.5 mg/dL (0.15-1.2)
[2022-10-13] MEDS: benzonatate 100 mg Capsule 200 MG PO (23:56)
[2022-10-13] MEDS: doxycycline 100 mg Tablet PO (23:56)
[2022-10-13] MEDS: ketorolac 30 mg/mL INJ IVP (23:56)
[2022-10-13] MEDS: orphenadrine 30 mg/mL Inj 2 mL 60 MG IVP (23:57)
[2022-10-14 00:10] VITALS: BP 210/95; PULSE 68; RESP 18; O2SAT 99
--- NOTE | 2022-10-14 00:28 | ED_ITS ---
HPI - SOB/Dyspnea General: Chief Complaint: Shortness of Breath/Dyspnea Stated Complaint: sob,body aches Time Seen by Provider: 10/13/22 23:05 Source: patient and family Mode of arrival: ambulatory Limitations: no limitations History of Present Illness: HPI Narrative: Patient presents to the emergency department today for evaluation treatment of left lateral/inferior rib pain-worse with inspiration with onset approximately 3 days ago. Patient denies fever. No noticeable cough or congestion symptoms. He reports pain as wrapping around the lower ribs with each breath in which is what he is describing as shortness of breath. He denies any injuries. Review of Systems General: Reports: 10 or more systems reviewed and unremarkable except in HPI and below PFSH ED PFSH: Medical History Asthma with chronic obstructive pulmonary disease (COPD) Elevated PSA Essential hypertension GERD (gastroesophageal reflux disease) Hx of type 2 diabetes mellitus Obesity PVD (peripheral vascular disease) Sleep apnea Surgical History History of back surgery S/P cataract surgery S/P cholecystectomy S/P inguinal hernia repair S/P knee surgery S/P rotator cuff repair Family History Father , 80 Chronic kidney disease (CKD) Diabetes Mother , at age 82 Hypertension Diabetes CAD (coronary artery disease) Social History Smoking and tobacco status: current every day smoker cigarettes Packs smoked per day: 1 Years cigarettes smoked: 50 Alcohol intake: never Substance/Drug Use: never Marital status: Current occupational status: disabled Physical Exam Const: COMMON NORMALS: patient oriented x3 and alert OTHER: Patient is nontoxic-appearing but does appear uncomfortable in the bed HENMT: COMMON NORMALS: normocephalic, atraumatic, external ears normal, Normal external nose present, Normal nasal mucous membranes and turbinates present and moist oral mucous membranes HEAD & SCALP: normocephalic and atraumatic NOSE: Normal external nose present and Normal nasal mucous membranes and turbinates present EXTERNAL EAR: Yes external ears normal Eye: COMMON NORMALS: Equal, round and reactive pupils present, EOMs intact bilaterally and conjunctivae normal CONJUNCTIVA: Yes conjunctivae normal P UPIL: Yes Equal, round and reactive pupils present Neck/C-Spine: COMMON NORMALS: no JVD Lymph: LYMPHATIC: no lymphadenopathy noted Resp: COMMON NORMALS: normal respiratory effort, No retractions and No use of accessory muscles OTHER: Patient indicates obvious discomfort while deep breathing on auscultation. Patient has some crackling down on the left lower lungs and, patient has a somewhat wet cough when breathing deeply. Cardio: COMMON NORMALS: no JVD and regular rate RATE: regular rate : COMMON NORMALS: Yes no CVA tenderness BLADDER/KIDNEY EXAM: Yes no CVA tenderness Back/Pelvis: COMMON NORMALS: no CVA tenderness, thoracic and lumbar spine normal to inspection and thoraco-lumbar ROM normal Extremity: COMMON NORMALS: normal to inspection, full ROM and no pedal edema Neuro: COMMON NORMALS: patient oriented x3 SENSORIUM/ORIENTATION: Yes alert Skin: COMMON NORMALS: no rashes or lesions noted and turgor normal GENERAL SKIN EXAM: no rashes or lesions noted and turgor normal Course Vital Signs: Vital signs: Vital Signs Temperature 98.1 F 10/13/22 19:37 Pulse Rate 68 10/14/22 00:10 Respiratory Rate 18 10/14/22 00:10 Blood Pressure 210/95 10/14/22 00:10 Pulse Oximetry 99 10/14/22 00:10 MDM - SOB/Dyspnea Medical Decision Making Patient's lab work indicated a slightly elevated white blood cell count and, chest x-ray was concerning for a left lower lobe pneumonia. As this is the area of the patient's most discomfort, I do think these are correlated. I also think patient is dealing with a pleuritic type chest pain as he has worsening of pain when he takes a deep breath in. Pain also correlates with an area of infection which could be the cause of pleurisy. Patient is allergic to dexamethasone, [place], morphine. I do not see in his chart where he has been given other steroids given his history of COPD so I am prescribing an albuterol inhaler, muscle relaxer, one-time dose of Toradol here, antibiotic, Tessalon Perlsteven. Explained to the patient he will have pleuritic discomfort for probably few days until the medication really begins to help with the infection. However, we did attempt to provide him some relief tonight by treating him here in the emergency department. He was given return precautions for any change or worsening in his ability to breathe including any signs of respiratory distress. Patient verbalized understanding and agreement to treatment plan. Differential Diagnosis Likely acute exacerbation of chronic obstructive airways disease and community acquired pneumonia (Pleuritic chest pain, intercostal muscle strain) Lab Data 10/13/22 22:07 10/13/22 22:07 Labs/Radiology: Radiology Impressions Chest X-Ray 10/13/22 20:00 IMPRESSION: 1. Mild left basilar atelectasis and/or pneumonia. 2. 3.2 cm oval-shaped mass over the left anterior 1st rib and versus left anterior 1st rib arthritic articulation with the manubrium. Laboratory Results WBC 14.58 10^3/uL (3.29-11.43) H 10/13/22 22:07 RBC 4.70 10^6/uL (3.85-5.65) 10/13/22 22:07 Hgb 13.80 g/dL (11.27-16.99) 10/13/22 22:07 Hct 41.1 % (37-53) 10/13/22 22:07 MCV 87.4 fl (82-101) 10/13/22 22:07 MCH 29.4 pg (27-33) 10/13/22 22:07 MCHC 33.6 g/dL (30-55) 10/13/22 22:07 RDW 13.8 % (12.1-15.1) 10/13/22 22:07 Plt Count 387 10^3/cmm (157-399) 10/13/22 22:07 MPV 9.4 fL (7.4-10.4) 10/13/22 22:07 Neut % (Auto) 55.7 % 10/13/22 22:07 Lymph % (Auto) 32.4 % 10/13/22 22:07 [place] % (Auto) 9.1 % 10/13/22 22:07 Eos % (Auto) 1.8 % 10/13/22 22:07 Baso % (Auto) 0.6 % 10/13/22 22:07 Neut # (Auto) 8.12 10^3/uL (1.8-7.7) H 10/13/22 22:07 Lymph # (Auto) 4.7 10^3/uL (0.8-4.8) 10/13/22 22:07 [place] # (Auto) 1.3 10^3/uL (0.2-0.9) H 10/13/22 22:07 Eos # (Auto) 0.3 10^3/uL (0.0-0.8) 10/13/22 22:07 Baso # (Auto) 0.1 10^3/uL (0.0-0.1) 10/13/22 22:07 Nucleated RBC % (auto) 0 % 10/13/22 22:07 Nucleated RBCs # 0.0 /100WBC 10/13/22 22:07 Sodium 138 mmol/L (136-145) 10/13/22 22:07 Potassium 3.9 mmol/L (3.5-5.1) 10/13/22 22:07 Chloride 102 mmol/L (98-107) 10/13/22 22:07 Carbon Dioxide 27 mmol/L (22-29) 10/13/22 22:07 Anion Gap 12.9 (5-19) 10/13/22 22:07 BUN 17 mg/dL (8-23) 10/13/22 22:07 Creatinine 0.8 mg/dL (0.7-1.2) 10/13/22 22:07 GFR Calculation 97.0 mL/min (90-130) 10/13/22 22:07 Glucose 157 mg/dL (65-115) H 10/13/22 22:07 Calculated Osmolality 291 mOsm/kg (285-295) 10/13/22 22:07 Calcium 9.7 mg/dL (8.5-10.5) 10/13/22 22:07 Total Bilirubin 0.5 mg/dL (0.15-1.2) 10/13/22 22:07 AST 19 U/L (0-40) 10/13/22 22:07 ALT 11 U/L (0-41) 10/13/22 22:07 Alkaline Phosphatase 230 U/L (40-130) H 10/13/22 22:07 Total Protein 8.0 g/dL (6.6-8.7) 10/13/22 22:07 Albumin 4.3 g/dL (3.5-5.2) 10/13/22 22:07 Globulin 3.7 g/dL (1.3-4.6) 10/13/22 22:07 Discharge Plan Discharge Patient Disposition: Home Clinical Impression: LLL pneumonia, Pleuritic pain Condition: Stable Prescriptions: New Ventolin HFA 90 mcg/actuation HFA aerosol inhaler 2 inh inhalation Q4H PRN (Reason: shortness of breath or wheezing) Qty: 8.5 0RF benzonatate 100 mg capsule 100 mg PO TID Qty: 30 0RF doxycycline hyclate 100 mg tablet 100 mg PO BID 10 Days Qty: 20 0RF methocarbamol 750 mg tablet 750 mg PO Q8H 5 Days Qty: 15 0RF No Action losartan 100 mg tablet 100 mg PO DAILY metoprolol succinate 100 mg tablet extended release 24 hr 50 mg PO DAILY sumatriptan succinate 100 mg tablet See Rx Instructions PO .COMPLEX Rx Instructions: take 1 tab at onset of headache; if no relief, may repeat 1 tab after at least 2 hrs; max = 2 tabs/24 hrs PO cilostazol 100 mg tablet 100 mg PO BID Qty: 60 5RF omeprazole 40 mg Capsule,Delayed Release(Dr/Ec) 40 mg PO DAILY metformin 500 mg Tablet Extended Release 24 Hr 1,000 mg PO DAILY celecoxib [Celebrex] 100 mg capsule 200 mg PO BID Qty: 20 0RF Hold Instructions: Resume on 07/19/21. aspirin 81 mg Tablet,Delayed Release (Dr/Ec) 81 mg PO DAILY Hold Instructions: Resume on 07/18/21. Fish Oil 1 tab PO DAILY Discharge Orders: Discharge ED (Routine); Ordered 10/13/22 Ordered By: Kelley Gomez Referrals: Evelina Shah FNP [Primary Care Provider] - Discharge Diet: Usual diet Discharge Activity: Increase activity as tolerated Patient Instructions: Pleurisy (ED), Pneumonia (ED) Activity Restrictions/Additional Instructions: Lab work today shows an elevated white blood cell count suspicious for an infection. The chest x-ray confirms concerns for a left lower lobe pneumonia. This does correlate with your area of most intense discomfort. I believe it is associated with a pleuritic type pain as it hurts worse when you are trying to breathe then. I am starting you on antibiotics. Unfortunately, the infection causes the increased discomfort within the chest cavity and the best treatment is to resolve the infection. Still, I will provide you some medications to help with discomfort in this region while the antibiotics begin to take effect. Watch for any new onset fever, difficulty breathing or shortness of breath. Follow-up with your primary care provider at the beginning of the week for reche ck or, return to the emergency department if acutely worsening. Coding Level of Care Code ED National Sales Representative for Christiano Miller
[2022-10-14 00:43] VITALS: BP 203/88; PULSE 72; RESP 24; O2SAT 96
== END 2022-10-14 00:45 | disposition home or self-care (01) ==
PROVIDERS: Emergency Medicine; Emergency Provider Physician Assistant; PCP Nurse Practitioner
DX: J18.8 Other pneumonia, unspecified organism (principal); R07.81 Pleurodynia; Z79.82 Long term (current) use of aspirin; Z79.84 Long term (current) use of oral hypoglycemic drugs; F17.210 Nicotine dependence, cigarettes, uncomplicated; I10 Essential (primary) hypertension; E11.9 Type 2 diabetes mellitus without complications
CPT/HCPCS: 36415; 71045; 80053; 85025; 93005; 96374; 96375; 99285; J1885; J2360

== ENCOUNTER 2023-01-31 09:23 | Oncology outpatient (recurring) (ONCR) | payer OTHER, SELFPAY ==
[2023-01-31 10:58] LABS: Basophils # 0.1 10^3/uL (0.0-0.1); Basophils % 0.9 %; Eosinophils # 0.4 10^3/uL (0.0-0.8); Hematocrit 38.7 % (37-53); Lymphocytes # 3.9 10^3/uL (0.8-4.8); Lymphocytes % 36.9 %; Mean Corpuscular HGB Conc 33.9 g/dL (30-55); Mean Corpuscular Hemoglobin 29.4 pg (27-33); Mean Platelet Volume 9.4 fL (7.4-10.4); Monocytes # 0.9 10^3/uL (0.2-0.9); Monocytes % 8.5 %; Neutrophils # 5.21 10^3/uL (1.8-7.7); Neutrophils % 49.5 %; Nucleated Red Blood Cells % 0 %; Platelet Count 454 10^3/cmm (157-399); Red Blood Count 4.45 10^6/uL (3.85-5.65); Red Cell Distribution Width 13.2 % (12.1-15.1); White Blood Count 10.53 10^3/uL (3.29-11.43)
[2023-01-31 11:11] LABS: Partial Thromboplastin Time 36.1 SECONDS (23.9-36.7)
== END 2023-02-17 23:59 | disposition home or self-care (01) ==
PROVIDERS: PCP Nurse Practitioner; Visit Provider Internal Medicine Hematology & Oncology
DX: C61 Malignant neoplasm of prostate (principal); R97.20 Elevated prostate specific antigen [PSA]; Z79.899 Other long term (current) drug therapy; M79.606 Pain in leg, unspecified
CPT/HCPCS: 36415; 73552; 85025; 85610; 85730; 99205

== ENCOUNTER 2023-02-07 13:08 | Outpatient (CLI) | payer OTHER, SELFPAY ==
--- NOTE | 2023-02-07 14:00 | XR_ITS ---
WS: [id number] DEXA (DUAL ENERGY X-RAY ABSORPTIOMETRY) Bone mineral density was performed using a Yekra machine. HISTORY: bone pain COMPARISON: None available. Lumbar spine BMD (L1-L4): 1.598 g/cm2 T score: 3.1 Z score: 2.9 Total hip BMD: Left: 1.190 g/cm2. T score: 0.6 Z score: 0.7 Right: 1.219 g/cm2. T score: 0.8 Z score: 0.9 10 year probability of a major osteoporotic fracture is 4.2%. IMPRESSION: NORMAL BONE MINERAL DENSITY .
== END 2023-02-07 13:09 | disposition home or self-care (01) ==
LOC: RAD 13:08
PROVIDERS: PCP Nurse Practitioner; Visit Provider Internal Medicine Hematology & Oncology
DX: M89.8X9 Other specified disorders of bone, unspecified site (principal); C61 Malignant neoplasm of prostate; M79.606 Pain in leg, unspecified
CPT/HCPCS: 77080

== ENCOUNTER → 2023-02-12 10:11 | Outpatient (BNVA) | payer OTHER, SELFPAY | PROVIDERS: PCP Nurse Practitioner; Referring Provider Internal Medicine Hematology & Oncology; Visit Provider Surgery | DX: Z95.828 Presence of other vascular implants and grafts (principal); C61 Malignant neoplasm of prostate; C79.51 Secondary malignant neoplasm of bone | CPT/HCPCS: 99205; 99214 ==

== ENCOUNTER 2023-02-13 10:04 | Day surgery (SDC) | payer OTHER, SELFPAY ==
--- NOTE | 2023-02-13 10:18 | W.PM.OPSUD ---
Surgery/Procedure H&P Update DATE OF PROCEDURE: February 13, 2023 DATE H&P PERFORMED: 02/12/23 H&P UPDATE INFORMATION: I have reviewed H&P completed within last 30 days, I have examined patient prior to procedure, No changes to prior documentation and [place] [facility] [place] indicated PLANNED PROCEDURE: Operation Date: 02/13/23 12:00 Proposed Procedures p 71179 - port a cath placement c61,c79.51(Not Applicable) - Neymar Quinn MD
--- NOTE | 2023-02-13 10:27 | SC_ITS ---
WS: [id number] INTRAOPERATIVE TECHNIQUE: 2 Spot fluoroscopic images for intraoperative purposes. FLUOROSCOPY TIME: 24 seconds CLINICAL INFORMATION: for port placement COMPARISON: None. FINDINGS: RIGHT Port-A-Cath with tip in the distal SVC. Prior cervical fusion. IMPRESSION: Images obtained for intraoperative purposes.
[2023-02-13 10:41] VITALS: BP 166/96; PULSE 71; RESP 18; TEMP 36.4; O2SAT 97
[2023-02-13 10:45] VITALS: BMI 44.6
[2023-02-13] MEDS: sodium chloride 0.9% 1,000 ML 30 ML IV (11:17)
[2023-02-13 11:24] LABS: Glucose Point of Care 155 mg/dL (70-110)
--- NOTE | 2023-02-13 11:32 | ECG_ITS ---
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 Measurements Intervals [place] Rate: 58 P: 69 ID: [id number] QRS: 62 QRSD: 113 T: 78 QT: 442 QTc: 435 Interpretive Statements SINUS BRADYCARDIA MODERATE INTRAVENTRICULAR CONDUCTION DELAY [110+ ms QRS DURATION] NONSPECIFIC ST & T-WAVE ABNORMALITY Compared to ECG 10/13/2022 22:43:37 Ectopic atrial rhythm no longer present Left-axis deviation no longer present Possible ischemia no longer present T-wave abnormality still present Electronically Signed On 02-13-2023 11:43:27 COATING SUPERVISOR by Preston Bangura M.D. [email or web address] [email or web address] [email or web address] medical [email or web address].[email or web address]/[id number]
--- NOTE | 2023-02-13 12:08 | P.ANESASSM_ITS ---
Pre-Anesthetic Assessment Height/Weight: Height 1.8 m Weight 145.15 kg Temp Pulse Resp BP Pulse Ox O2 Del Method 97.5 F L 71 18 166/96 97 Room Air 02/13/23 10:41 02/13/23 10:41 02/13/23 10:41 02/13/23 10:41 02/13/23 10:41 02/13/23 10:46 Preop Diagnosis: Prostate cancer Operation Date: 02/13/23 12:00 Proposed Procedures p [id number] - port a cath placement c61,c79.51(Not Applicable) - Neymar Quinn MD Last intake: Intake Last Liquid Date 02/12/23 Last Liquid Time 20:00 Last Solid Date 02/12/23 Last Solid Time 20:00 Social Tobacco and No alcohol Exam alert, oriented x 3, clear to auscultation bilaterally and regular rate & rhythm Airway Submandibular: within normal limits Cervical ROM: within normal limits Mallampati: Class II Dentition: full History/ROS No significant history except as noted and No significant complaints Pulmonary Asthma, Chronic Obstructive Pulmonary Disease, Exertional Dyspnea, Sleep Apnea and Shortness of Breath CV/HEM Hypertension and Peripheral Vascular Disease None reported Hepatic None reported GI None reported Metabolic Diabetes Mellitus and Morbid Obesity [facility] Lower Back Pain Anesthetic Plan ASA status: 3 Anesthesia: Anesthesia Evaluation and MAC Risk of > 500 ml blood loss (7ml/kg in children): No Medications/Allergies Home Medications Medication Instructions Recorded Confirmed Last Taken Type losartan 100 mg tablet 100 mg PO DAILY 04/08/19 02/12/23 02/12/23 History metoprolol succinate 100 mg 50 mg PO DAILY 04/08/19 02/13/23 02/12/23 History tablet,extended release 24 hr metformin 500 mg tablet,extended 1,000 mg PO DAILY 04/19/20 02/12/23 02/12/23 History release 24 hr sumatriptan succinate 100 mg tablet See Rx Instructions PO .COMPLEX 09/07/20 02/12/23 12/31/21 History PRN Migraine Headache celecoxib 100 mg capsule (Celebrex) 200 mg (2 x 100 mg) PO BID #20 caps 02/06/21 02/12/23 02/12/23 Rx aspirin 81 mg tablet,delayed 81 mg PO DAILY 07/12/21 02/12/23 02/12/23 History release Fish Oil 1 tab PO DAILY 12/28/21 02/12/23 02/12/23 History benzonatate 100 mg capsule 100 mg PO TID #30 caps 10/13/22 02/12/23 02/12/23 Rx glipizide 5 mg tablet 5 mg PO DAILY 01/31/23 02/12/23 02/12/23 History pantoprazole 40 mg tablet,delayed 40 mg PO DAILY 01/31/23 02/12/23 02/12/23 History release psyllium husk 0.4 gram capsule 0.4 g PO DAILY 01/31/23 02/12/23 02/12/23 History (Daily Fiber) darolutamide 300 mg tablet 600 mg (2 x 300 mg) PO BID 21 days 02/04/23 02/12/23 Unknown Rx #84 tabs bicalutamide 50 mg tablet 50 mg PO DAILY #90 tabs 02/07/23 02/13/23 02/12/23 Rx cholecalciferol (vitamin D3) 125 125 mcg PO DAILY 02/12/23 02/13/23 02/12/23 History mcg (5,000 unit) capsule vitamin B complex (B 1 tab PO DAILY 02/12/23 02/12/23 02/11/23 History Complex-Vitamin B12 tablet) Allergies Allergy/AdvReac Type Severity Reaction Status Date / Time dexamethasone Allergy unknown Verified 02/12/23 15:23 hydrocodone Allergy NA Verified 02/12/23 15:23 morphine Allergy NA Verified 02/12/23 15:23 Current Medications Generic Name Dose Route Start Last Admin Trade Name Freq PRN Reason Stop Dose Admin Sodium Chloride 1,000 mls @ 30 mls/hr 02/13/23 10:30 02/13/23 11:17 Sodium Chloride 0.9% IV 02/14/23 10:29 30 mls/hr .Q24H LANCE Administration PFSH Anesthesia Medical History Pulmonary nodule Essential hypertension Hx of type 2 diabetes mellitus Asthma with chronic obstructive pulmonary disease (COPD) PVD (peripheral vascular disease) GERD (gastroesophageal reflux disease) Obesity Sleep apnea Elevated PSA Surgical History S/P inguinal hernia repair S/P cholecystectomy S/P rotator cuff repair S/P knee surgery S/P cataract surgery History of back surgery Family History Father , 80 Chronic kidney disease (CKD) Diabetes Mother , at age 82 Hypertension Diabetes CAD (coronary artery disease) Social History Smoking and tobacco/nicotine status: current every day tobacco/nicotine user cigarettes Packs smoked per day: 1 Years cigarettes smoked: 50 Alcohol intake: never Substance/Drug Use: never Marital status: Current occupational status: disabled Data Anesthesia Cardiac Studies: Echocardiogram Ultrasound 03/23/20 Sestamibi Stress Test (Cardiology) 03/21
[2023-02-13] MEDS: ceFAZolin 3,000 MG in sodium chloride 0.9% (plus) 100 ML 200 MG IV (12:14)
[2023-02-13] MEDS: lidocaine-epi 2% 20 mL INJ INJECTION (12:42)
[2023-02-13] MEDS: BUPivacaine 0.5% INJ 30 mL INJECTION (12:42)
[2023-02-13] MEDS: heparin, porcine 1,000 unit/mL INJ 10 mL 10000 UNIT IRRIGATION (12:48)
--- NOTE | 2023-02-13 13:15 | PM.OP ---
Operative Report Date of procedure: February 13, 2023 Pre-op diagnosis: Metastatic prostate cancer Post-op diagnosis: Same Post-op findings: Normal vascular anatomy Procedure done: Insertion of Port-A-Cath Implants: Bard Port-A-Cath Surgeon: Neymar Quinn MD Asset Protection Specialist: THELMA OR STaff Estimated blood loss: 5 Complications: none Brief History: Is a 67-year-old male who presented to my clinic for evaluation for Port-A-Cath placement due to metastatic prostate cancer. After discussion of all the risk and benefits as documented in my preop note we decided to proceed. Procedure: Patient was brought into the OR. He was placed in the supine position. Moderate anesthesia sedation was given. The right chest and neck was prepped and draped in the usual sterile fashion. Timeout was conducted. I used use of ultrasound to identify the right IJ vein. Local anesthesia was infiltrated around the vein. I then proceeded to cannulate the vein with 18-gauge needle under ultrasound visualization, the needle tip was seen entering the vein and immediate blood return was noted. A wire was advanced and the needle removed, wire position was verified with both ultrasound and fluoroscopy. I then placed my attention to the chest and in the previously marked site I make a 3 cm incision, the incision was deepened to subcutaneous tissue and a pocket was created to accommodate the port. I then used a hemostat to create a tunnel from the chest incision to the area of the needle insertion site in the neck. I made a 0.5 cm incision at the level of the needle insertion site in the neck and a hemostat was used to create a pocket at that level 2. I then proceeded to tunneled the catheter with the provided tunneler and the wire was seat in the pocket that was created. I then proceeded to make sure the catheter under fluoroscopic guidance and the catheter was cut to length. I then proceeded to advance an introducer and peel-off sheath over the wire under direct fluoroscopy guidance. The introducer and wire were then removed leaving the sheath in place. The catheter was then advanced through the sheath and the sheath was removed leaving the catheter in place. The port was accessed and was noted to have low blood return and was flushing. Fluoroscopy was used to verify position and it was noted to be in no acute position without kinks. The catheter was then hep-locked. Hemostasis was verified. The wound were closed in layers using #3-0 Vicryl for the subcutaneous tissue and #4 Monocryl for the skin. Dermabond was applied. At the end of the procedure all counts were correct, the patient tolerated well the procedure and was transferred to the PACU in stable condition.
[2023-02-13 13:20] VITALS: BP 141/63; PULSE 67; RESP 20; TEMP 36.1; O2SAT 95
[2023-02-13 13:25] VITALS: BP 162/64; PULSE 63; RESP 18; O2SAT 98
[2023-02-13 13:30] VITALS: BP 151/67; PULSE 63; RESP 18; O2SAT 98
[2023-02-13 13:35] VITALS: BP 151/77; PULSE 64; RESP 18; O2SAT 94
[2023-02-13 13:45] VITALS: BP 161/72; PULSE 67; RESP 18; TEMP 36.1; O2SAT 95
--- NOTE | 2023-02-13 14:15 | ANE.PACU2 ---
Inpatient post-anesthesia follow up: Airway intact: Yes Vital signs: Temperature 97 F Pulse Rate 67 Respiratory Rate 18 Blood Pressure 161/72 Pulse Oximetry 95 Oxygen Delivery Me thod Room Air Oxygen Flow Rate 8 Fraction of Inspir ed Oxygen Hydration adequate: Yes Nausea and vomiting: No Pain level: 1 Mental status: Baseline
== END 2023-02-13 14:15 | disposition home or self-care (01) ==
PROVIDERS: PCP Nurse Practitioner; Visit Provider Surgery
PROC: (CPT 36561; principal; 2023-02-13 12:00)
DX: C61 Malignant neoplasm of prostate (principal); C79.9 Secondary malignant neoplasm of unspecified site; J44.9 Chronic obstructive pulmonary disease, unspecified; I10 Essential (primary) hypertension; E11.9 Type 2 diabetes mellitus without complications; E66.01 Morbid (severe) obesity due to excess calories; Z68.41 Body mass index [BMI] 40.0-44.9, adult; Z79.84 Long term (current) use of oral hypoglycemic drugs; G47.30 Sleep apnea, unspecified; F17.210 Nicotine dependence, cigarettes, uncomplicated
CPT/HCPCS: 36561; 36416; 76000; 77001; 82962; 93005; C1788; J0690; J1644; J2704; J3010; J3490; J7030

== ENCOUNTER 2023-03-04 10:30 | Oncology outpatient (recurring) (ONCR) | payer OTHER, SELFPAY ==
[2023-02-21 09:48] VITALS: BP 161/74; PULSE 78; RESP 18; TEMP 36.6; O2SAT 97; BMI 45.3
[2023-02-21 10:09] LABS: Basophils % 0.2 %; Eosinophils % 0.1 %; Hematocrit 38.8 % (37-53); Lymphocytes # 2.6 10^3/uL (0.8-4.8); Lymphocytes % 13.2 %; Mean Corpuscular Hemoglobin 29.3 pg (27-33); Mean Corpuscular Volume 86.2 fl (82-101); Mean Platelet Volume 9.5 fL (7.4-10.4); Monocytes # 1.4 10^3/uL (0.2-0.9); Monocytes % 7.2 %; Neutrophils # 15.27 10^3/uL (1.8-7.7); Neutrophils % 78.3 %; Nucleated Red Blood Cells % 0 %; Platelet Count 361 10^3/cmm (157-399); Red Cell Distribution Width 13.1 % (12.1-15.1)
[2023-02-21 10:41] LABS: Alanine Aminotransferase 11 U/L (0-41); Albumin Level 3.9 g/dL (3.5-5.2); Alkaline Phosphatase 201 U/L (40-130); Aspartate Amino Transferase 13 U/L (0-40); Blood Urea Nitrogen 18 mg/dL (8-23); Calcium 9.7 mg/dL (8.5-10.5); Carbon Dioxide 23 mmol/L (22-29); Chloride 99 mmol/L (98-107); Globulin 3.4 g/dL (1.3-4.6); Glucose 301 mg/dL (65-115); Osmolality Calculated 293 mOsm/kg (285-295); Sodium 135 mmol/L (136-145); Testosterone Total 254.2 ng/dL (193-740); Total Bilirubin 0.4 mg/dL (0.15-1.2); Total Protein 7.3 g/dL (6.6-8.7)
[2023-02-21 10:45] LABS: Anion Gap 17.9 (5-19); Potassium 4.9 mmol/L (3.5-5.1)
[2023-02-21] MEDS: sodium chloride 0.9% 250 ML 75 ML IV (12:17)
[2023-02-21] MEDS: diphenhydrAMINE 50 mg/mL SDV 1mL 25 MG IVP (12:20)
[2023-02-21] MEDS: famotidine 20 mg/2 mL INJ IVP (12:23)
[2023-02-21] MEDS: palonosetron 0.25 mg/5 mL SDV IVP (12:26)
[2023-02-21 13:14] VITALS: BP 188/83; PULSE 72; RESP 20; TEMP 36.8; O2SAT 96
[2023-02-21] MEDS: leuprolide 22.5 mg Kit IM (14:26)
[2023-02-21 14:50] VITALS: BP 174/80; PULSE 66; TEMP 36.2; O2SAT 97
[2023-02-27 09:50] VITALS: BP 152/72; PULSE 92; RESP 24; TEMP 36; O2SAT 96
[2023-02-27 10:13] LABS: Basophils % 1.9 %; Eosinophils # 0.1 10^3/uL (0.0-0.8); Eosinophils % 6.7 %; Hematocrit 38.3 % (37-53); Lymphocytes # 0.9 10^3/uL (0.8-4.8); Lymphocytes % 81.7 %; Mean Corpuscular HGB Conc 33.2 g/dL (30-55); Mean Corpuscular Hemoglobin 29.3 pg (27-33); Mean Corpuscular Volume 88.5 fl (82-101); Mean Platelet Volume 10.2 fL (7.4-10.4); Monocytes % 2.9 %; Neutrophils % 5.8 %; Nucleated Red Blood Cells % 0 %; Platelet Count 267 10^3/cmm (157-399); Red Blood Count 4.33 10^6/uL (3.85-5.65); White Blood Count 1.04 10^3/uL (3.29-11.43)
[2023-02-27 10:23] LABS: Albumin Level 3.5 g/dL (3.5-5.2); Alkaline Phosphatase 165 U/L (40-130); Anion Gap 14.4 (5-19); Aspartate Amino Transferase 23 U/L (0-40); Blood Urea Nitrogen 20 mg/dL (8-23); Calcium 9.3 mg/dL (8.5-10.5); Carbon Dioxide 25 mmol/L (22-29); Chloride 99 mmol/L (98-107); Globulin 3.1 g/dL (1.3-4.6); Glomerular Filtration Rate 113.2 mL/min (90-130); Glucose 234 mg/dL (65-115); Osmolality Calculated 288 mOsm/kg (285-295); Potassium 4.4 mmol/L (3.5-5.1); Sodium 134 mmol/L (136-145); Total Bilirubin 0.7 mg/dL (0.15-1.2); Total Protein 6.6 g/dL (6.6-8.7)
[2023-02-27 10:34] LABS: Alanine Aminotransferase 25 U/L (0-41)
[2023-02-27 10:46] LABS: Neutrophils # 0.06 10^3/uL (1.8-7.7)
[2023-02-27 10:49] LABS: Slide Review Slide Review Perform
[2023-02-27] MEDS: sodium chloride 0.9% 1,000 ML 999 ML IV (11:33)
[2023-02-27] MEDS: loratadine 10 mg Tablet PO (12:01)
[2023-02-27] MEDS: oxyCODONE 5 mg IR Tab/Cap 10 MG PO (12:01)
[2023-02-27] MEDS: filgrastim-sndz 480 mcg/0.8 mL Syringe SUBCUT (12:12)
[2023-02-28 13:59] VITALS: BP 124/71; PULSE 86; RESP 20; TEMP 36.7; O2SAT 97
[2023-02-28] MEDS: filgrastim-sndz 480 mcg/0.8 mL Syringe SUBCUT (14:12)
[2023-02-28 14:19] VITALS: BP 113/62; PULSE 90; RESP 22; TEMP 36.6; O2SAT 95
--- NOTE | 2023-02-28 15:15 | PC.NURSE ---
Patient complained of severe back and chest pain with already taking oral pain meds. VSS. Encouraged patient to visit ER if pain worsens or condition unstable. Patient states understanding.
[2023-03-01 08:49] VITALS: BP 134/77; PULSE 83; RESP 16; TEMP 35.6; O2SAT 94
[2023-03-01 09:23] LABS: Hematocrit 35.4 % (37-53); Mean Corpuscular HGB Conc 34.2 g/dL (30-55); Mean Corpuscular Hemoglobin 29.7 pg (27-33); Platelet Count 284 10^3/cmm (157-399); Red Blood Count 4.07 10^6/uL (3.85-5.65); White Blood Count 2.14 10^3/uL (3.29-11.43)
[2023-03-01 10:10] LABS: Absolute Segmented Neutrophil 0.1 10/cmm (1.6-7.1); Segmented Neutrophils 4 %; Slide Review Slide Review Perform; Total Cells Counted 100 (0-100)
[2023-03-01 10:11] LABS: Absolute Neutrophil 0.2 10^3/cmm (1.4-6.5); Band Neutrophils Absolute 0.1 10^3/cmm (0.0-1.2); Eosinophils 0 %; Lymphocytes 42 %; Lymphocytes Absolute 1.6 10^3/cmm (1.2-3.4); Monocytes Absolute 0.1 10^3/cmm (0.1-0.6); Platelet Estimate Normal (Normal)
[2023-03-01] MEDS: filgrastim-sndz 480 mcg/0.8 mL Syringe SUBCUT (10:30)
[2023-03-04 10:05] VITALS: BP 128/75; PULSE 90; RESP 16; TEMP 36.2; O2SAT 97
[2023-03-04 10:14] LABS: Basophils # 0.1 10^3/uL (0.0-0.1); Basophils % 0.3 %; Eosinophils % 0.2 %; Lymphocytes # 2.5 10^3/uL (0.8-4.8); Lymphocytes % 16.2 %; Mean Corpuscular HGB Conc 33.9 g/dL (30-55); Mean Corpuscular Hemoglobin 29.6 pg (27-33); Mean Corpuscular Volume 87.4 fl (82-101); Mean Platelet Volume 9.9 fL (7.4-10.4); Monocytes # 3.4 10^3/uL (0.2-0.9); Monocytes % 21.6 %; Neutrophils # 7.36 10^3/uL (1.8-7.7); Neutrophils % 47.1 %; Nucleated Red Blood Cells % 0.2 %; Platelet Count 211 10^3/cmm (157-399); Red Blood Count 4.12 10^6/uL (3.85-5.65); Red Cell Distribution Width 13.7 % (12.1-15.1); White Blood Count 15.64 10^3/uL (3.29-11.43)
[2023-03-04 10:32] LABS: Alanine Aminotransferase 25 U/L (0-41); Albumin Level 3.3 g/dL (3.5-5.2); Alkaline Phosphatase 212 U/L (40-130); Anion Gap 18.4 (5-19); Aspartate Amino Transferase 35 U/L (0-40); Blood Urea Nitrogen 15 mg/dL (8-23); Calcium 8.6 mg/dL (8.5-10.5); Carbon Dioxide 22 mmol/L (22-29); Chloride 101 mmol/L (98-107); Globulin 3.2 g/dL (1.3-4.6); Glomerular Filtration Rate 60.8 mL/min (90-130); Glucose 158 mg/dL (65-115); Osmolality Calculated 290 mOsm/kg (285-295); Potassium 3.4 mmol/L (3.5-5.1); Sodium 138 mmol/L (136-145); Total Bilirubin 0.3 mg/dL (0.15-1.2); Total Protein 6.5 g/dL (6.6-8.7)
[2023-03-04 10:50] LABS: Slide Review Slide Review Perform
[2023-03-04] MEDS: denosumab 120 mg SDV SUBCUT (11:17)
== END 2023-03-04 23:59 | disposition home or self-care (01) ==
PROVIDERS: Nurse Practitioner Family; PCP Nurse Practitioner; Visit Provider Internal Medicine Medical Oncology
DX: Z53.9 Procedure and treatment not carried out, unspecified reason (principal); Z51.11 Encounter for antineoplastic chemotherapy; C79.51 Secondary malignant neoplasm of bone; C61 Malignant neoplasm of prostate
CPT/HCPCS: 36591; 80053; 84153; 84403; 85007; 85025; 96360; 96367; 96372; 96375; 96401; 96402; 96413; 99214; 99215; J0897; J1100; J1200; J1642; J2469; J3490; J7030; J7050; J9171; J9217; Q5101

== ENCOUNTER 2023-03-20 14:00 | Oncology outpatient (recurring) (ONCR) | payer OTHER, SELFPAY ==
[2023-03-13 09:58] VITALS: BP 166/85; PULSE 80; RESP 18; TEMP 36.8; O2SAT 97
[2023-03-13 10:06] VITALS: BMI 45.0
[2023-03-13 10:56] LABS: Basophils % 0.2 %; Eosinophils % 0.1 %; Hematocrit 33.1 % (37-53); Lymphocytes % 18.1 %; Mean Corpuscular HGB Conc 34.4 g/dL (30-55); Mean Corpuscular Hemoglobin 29.8 pg (27-33); Mean Corpuscular Volume 86.4 fl (82-101); Mean Platelet Volume 9.7 fL (7.4-10.4); Monocytes # 1.4 10^3/uL (0.2-0.9); Monocytes % 8.3 %; Neutrophils # 11.94 10^3/uL (1.8-7.7); Nucleated Red Blood Cells % 0 %; Platelet Count 420 10^3/cmm (157-399); Red Blood Count 3.83 10^6/uL (3.85-5.65); Red Cell Distribution Width 13.3 % (12.1-15.1); White Blood Count 16.59 10^3/uL (3.29-11.43)
[2023-03-13 11:27] LABS: Alanine Aminotransferase 22 U/L (0-41); Albumin Level 3.2 g/dL (3.5-5.2); Alkaline Phosphatase 195 U/L (40-130); Anion Gap 14.6 (5-19); Aspartate Amino Transferase 20 U/L (0-40); Blood Urea Nitrogen 15 mg/dL (8-23); Calcium 8.7 mg/dL (8.5-10.5); Carbon Dioxide 23 mmol/L (22-29); Chloride 104 mmol/L (98-107); Globulin 3.3 g/dL (1.3-4.6); Glomerular Filtration Rate 135.2 mL/min (90-130); Glucose 104 mg/dL (65-115); Osmolality Calculated 287 mOsm/kg (285-295); Potassium 3.6 mmol/L (3.5-5.1); Sodium 138 mmol/L (136-145); Testosterone Total 12.7 ng/dL (193-740); Total Bilirubin 0.3 mg/dL (0.15-1.2); Total Protein 6.5 g/dL (6.6-8.7)
[2023-03-13] MEDS: sodium chloride 0.9% 250 ML 75 ML IV (12:26)
[2023-03-13] MEDS: diphenhydrAMINE 50 mg/mL SDV 1mL 25 MG IVP (12:29)
[2023-03-13] MEDS: famotidine 20 mg/2 mL INJ IVP (12:31)
[2023-03-13] MEDS: palonosetron 0.25 mg/5 mL SDV IVP (12:34)
[2023-03-13] MEDS: [UNRECOGNIZED DRUG - REMARK] 264.7 MG IV (13:20)
[2023-03-13 14:35] VITALS: BP 173/78; PULSE 67; O2SAT 93
[2023-03-20 14:48] LABS: Basophils # 0.1 10^3/uL (0.0-0.1); Basophils % 2.9 %; Eosinophils # 0.2 10^3/uL (0.0-0.8); Eosinophils % 4.8 %; Hematocrit 32.3 % (37-53); Lymphocytes # 2.2 10^3/uL (0.8-4.8); Lymphocytes % 68.8 %; Mean Corpuscular HGB Conc 33.1 g/dL (30-55); Mean Corpuscular Volume 87.5 fl (82-101); Monocytes # 0.2 10^3/uL (0.2-0.9); Monocytes % 4.8 %; Neutrophils % 18.1 %; Nucleated Red Blood Cells % 0 %; Platelet Count 420 10^3/cmm (157-399); Red Blood Count 3.69 10^6/uL (3.85-5.65); Red Cell Distribution Width 13.6 % (12.1-15.1); White Blood Count 3.14 10^3/uL (3.29-11.43)
[2023-03-20 14:59] LABS: Neutrophils # 0.57 10^3/uL (1.8-7.7)
== END 2023-03-20 23:59 | disposition home or self-care (01) ==
PROVIDERS: Nurse Practitioner Family; PCP Nurse Practitioner; Visit Provider Internal Medicine Medical Oncology
DX: Z53.9 Procedure and treatment not carried out, unspecified reason (principal); C61 Malignant neoplasm of prostate; C79.51 Secondary malignant neoplasm of bone
CPT/HCPCS: 99214; 36415; 72170; 73502; 80053; 84153; 84403; 85025; 96367; 96375; 96413; J1100; J1200; J1642; J2469; J3490; J7050; J9171

== ENCOUNTER 2023-04-17 11:30 | Oncology outpatient (recurring) (ONCR) | payer OTHER, SELFPAY ==
[2023-03-25 10:29] LABS: Basophils # 0.1 10^3/uL (0.0-0.1); Basophils % 1.7 %; Eosinophils # 0.2 10^3/uL (0.0-0.8); Eosinophils % 3.3 %; Hematocrit 34.9 % (37-53); Lymphocytes # 2.9 10^3/uL (0.8-4.8); Mean Corpuscular Hemoglobin 29.5 pg (27-33); Mean Corpuscular Volume 89.5 fl (82-101); Monocytes # 1.5 10^3/uL (0.2-0.9); Neutrophils % 9.6 %; Nucleated Red Blood Cells % 0 %; Platelet Count 327 10^3/cmm (157-399); Red Cell Distribution Width 15.4 % (12.1-15.1)
[2023-04-03 08:49] LABS: Basophils # 0.1 10^3/uL (0.0-0.1); Basophils % 0.3 %; Hematocrit 34.7 % (37-53); Lymphocytes # 3.1 10^3/uL (0.8-4.8); Lymphocytes % 13.7 %; Mean Corpuscular HGB Conc 33.1 g/dL (30-55); Mean Corpuscular Hemoglobin 29.9 pg (27-33); Mean Corpuscular Volume 90.1 fl (82-101); Mean Platelet Volume 9.2 fL (7.4-10.4); Monocytes # 1.6 10^3/uL (0.2-0.9); Monocytes % 7.2 %; Neutrophils # 17.48 10^3/uL (1.8-7.7); Neutrophils % 76.7 %; Nucleated Red Blood Cells % 0 %; Platelet Count 361 10^3/cmm (157-399); Red Blood Count 3.85 10^6/uL (3.85-5.65); Red Cell Distribution Width 16.3 % (12.1-15.1); White Blood Count 22.81 10^3/uL (3.29-11.43)
[2023-04-03 09:28] LABS: Alanine Aminotransferase 14 U/L (0-41); Albumin Level 3.5 g/dL (3.5-5.2); Alkaline Phosphatase 147 U/L (40-130); Anion Gap 18.9 (5-19); Aspartate Amino Transferase 15 U/L (0-40); Blood Urea Nitrogen 15 mg/dL (8-23); Calcium 7.5 mg/dL (8.5-10.5); Carbon Dioxide 21 mmol/L (22-29); Chloride 102 mmol/L (98-107); Globulin 3.3 g/dL (1.3-4.6); Glomerular Filtration Rate 112.8 mL/min (90-130); Glucose 195 mg/dL (65-115); Osmolality Calculated 292 mOsm/kg (285-295); Potassium 3.9 mmol/L (3.5-5.1); Sodium 138 mmol/L (136-145); Testosterone Total 2.5 ng/dL (193-740); Total Bilirubin 0.3 mg/dL (0.15-1.2); Total Protein 6.8 g/dL (6.6-8.7)
[2023-04-03] MEDS: sodium chloride 0.9% 250 ML 75 ML IV (11:09)
[2023-04-03] MEDS: famotidine 20 mg/2 mL INJ IVP (11:12)
[2023-04-03] MEDS: palonosetron 0.25 mg/5 mL SDV IVP (11:12)
[2023-04-03] MEDS: denosumab 120 mg SDV SUBCUT (11:13)
[2023-04-03] MEDS: diphenhydrAMINE 50 mg/mL SDV 1mL 25 MG IVP (11:13)
[2023-04-03] MEDS: [UNRECOGNIZED DRUG - REMARK] 264.699999999999989 MG IV (11:58)
[2023-04-03 13:14] VITALS: BP 181/93; PULSE 69; RESP 17; TEMP 36.3; O2SAT 95
[2023-04-11 11:02] LABS: Basophils # 0.1 10^3/uL (0.0-0.1); Basophils % 1.9 %; Eosinophils # 0.2 10^3/uL (0.0-0.8); Eosinophils % 4.8 %; Hematocrit 33.7 % (37-53); Lymphocytes # 3.1 10^3/uL (0.8-4.8); Lymphocytes % 65.3 %; Mean Corpuscular HGB Conc 34.1 g/dL (30-55); Mean Corpuscular Hemoglobin 30.4 pg (27-33); Mean Corpuscular Volume 89.2 fl (82-101); Mean Platelet Volume 9.7 fL (7.4-10.4); Monocytes # 0.4 10^3/uL (0.2-0.9); Monocytes % 7.7 %; Neutrophils % 20.1 %; Nucleated Red Blood Cells % 0 %; Platelet Count 426 10^3/cmm (157-399); Red Blood Count 3.78 10^6/uL (3.85-5.65); Red Cell Distribution Width 15.7 % (12.1-15.1); White Blood Count 4.78 10^3/uL (3.29-11.43)
[2023-04-11 11:31] LABS: Neutrophils # 0.96 10^3/uL (1.8-7.7)
[2023-04-17 11:32] LABS: Basophils # 0.1 10^3/uL (0.0-0.1); Basophils % 1.9 %; Eosinophils # 0.1 10^3/uL (0.0-0.8); Eosinophils % 2.2 %; Hematocrit 36.3 % (37-53); Lymphocytes # 2.9 10^3/uL (0.8-4.8); Lymphocytes % 49.6 %; Mean Corpuscular HGB Conc 32.8 g/dL (30-55); Mean Corpuscular Hemoglobin 29.5 pg (27-33); Mean Corpuscular Volume 90.1 fl (82-101); Mean Platelet Volume 8.9 fL (7.4-10.4); Monocytes # 1.9 10^3/uL (0.2-0.9); Nucleated Red Blood Cells % 0 %; Platelet Count 307 10^3/cmm (157-399); Red Blood Count 4.03 10^6/uL (3.85-5.65); Red Cell Distribution Width 16.3 % (12.1-15.1); White Blood Count 5.85 10^3/uL (3.29-11.43)
[2023-04-17 12:35] LABS: Neutrophils # 0.82 10^3/uL (1.8-7.7)
== END 2023-04-18 23:59 | disposition home or self-care (01) ==
PROVIDERS: PCP Nurse Practitioner; Visit Provider Internal Medicine Medical Oncology
DX: C61 Malignant neoplasm of prostate; C79.51 Secondary malignant neoplasm of bone; Z53.9 Procedure and treatment not carried out, unspecified reason
CPT/HCPCS: 36591; 80053; 84153; 84403; 85025; 96367; 96372; 96375; 96413; 99214; J0897; J1100; J1200; J1642; J2469; J3490; J7050; J9171

== ENCOUNTER 2023-05-15 08:30 | Oncology outpatient (recurring) (ONCR) | payer OTHER, SELFPAY ==
[2023-04-24 09:45] LABS: Basophils # 0.1 10^3/uL (0.0-0.1); Basophils % 0.5 %; Eosinophils % 0.1 %; Hematocrit 33.4 % (37-53); Lymphocytes # 3.3 10^3/uL (0.8-4.8); Mean Corpuscular HGB Conc 33.8 g/dL (30-55); Mean Corpuscular Hemoglobin 30.4 pg (27-33); Mean Corpuscular Volume 89.8 fl (82-101); Mean Platelet Volume 8.9 fL (7.4-10.4); Monocytes # 1.9 10^3/uL (0.2-0.9); Neutrophils # 13.25 10^3/uL (1.8-7.7); Nucleated Red Blood Cells % 0 %; Platelet Count 397 10^3/cmm (157-399); Red Blood Count 3.72 10^6/uL (3.85-5.65); Red Cell Distribution Width 16.2 % (12.1-15.1); White Blood Count 19.16 10^3/uL (3.29-11.43)
[2023-04-24 10:22] LABS: Alanine Aminotransferase 10 U/L (0-41); Albumin Level 3.5 g/dL (3.5-5.2); Alkaline Phosphatase 142 U/L (40-130); Anion Gap 16.9 (5-19); Aspartate Amino Transferase 22 U/L (0-40); Blood Urea Nitrogen 16 mg/dL (8-23); Calcium 7.7 mg/dL (8.5-10.5); Carbon Dioxide 23 mmol/L (22-29); Chloride 105 mmol/L (98-107); Glomerular Filtration Rate 134.8 mL/min (90-130); Glucose 152 mg/dL (65-115); Osmolality Calculated 296 mOsm/kg (285-295); Potassium 3.9 mmol/L (3.5-5.1); Sodium 141 mmol/L (136-145); Total Bilirubin 0.3 mg/dL (0.15-1.2); Total Protein 6.5 g/dL (6.6-8.7)
[2023-04-24] MEDS: sodium chloride 0.9% 250 ML 75 ML IV (11:33)
[2023-04-24] MEDS: palonosetron 0.25 mg/5 mL SDV IVP (11:34)
[2023-04-24] MEDS: famotidine 20 mg/2 mL INJ IVP (11:38)
[2023-04-24] MEDS: diphenhydrAMINE 50 mg/mL SDV 1mL 25 MG IVP (11:41)
[2023-04-24] MEDS: [UNRECOGNIZED DRUG - REMARK] 262.600000000000023 MG IV (12:39)
[2023-04-24 13:55] VITALS: BP 167/93; PULSE 77; TEMP 36.7; O2SAT 96
[2023-05-01 14:31] LABS: Basophils # 0.1 10^3/uL (0.0-0.1); Basophils % 1.9 %; Eosinophils # 0.3 10^3/uL (0.0-0.8); Eosinophils % 7.1 %; Hematocrit 32.1 % (37-53); Lymphocytes # 2.4 10^3/uL (0.8-4.8); Lymphocytes % 49.3 %; Mean Corpuscular HGB Conc 33.3 g/dL (30-55); Mean Corpuscular Hemoglobin 30.6 pg (27-33); Mean Corpuscular Volume 91.7 fl (82-101); Mean Platelet Volume 9.6 fL (7.4-10.4); Monocytes # 0.4 10^3/uL (0.2-0.9); Monocytes % 8.1 %; Neutrophils # 1.58 10^3/uL (1.8-7.7); Neutrophils % 32.8 %; Nucleated Red Blood Cells % 0 %; Platelet Count 442 10^3/cmm (157-399); Red Cell Distribution Width 15.9 % (12.1-15.1); White Blood Count 4.81 10^3/uL (3.29-11.43)
[2023-05-08 14:13] LABS: Basophils # 0.1 10^3/uL (0.0-0.1); Basophils % 1.7 %; Eosinophils # 0.2 10^3/uL (0.0-0.8); Eosinophils % 3.8 %; Hematocrit 33.7 % (37-53); Lymphocytes # 2.6 10^3/uL (0.8-4.8); Lymphocytes % 43.9 %; Mean Corpuscular HGB Conc 33.8 g/dL (30-55); Mean Corpuscular Hemoglobin 31.2 pg (27-33); Mean Corpuscular Volume 92.3 fl (82-101); Mean Platelet Volume 8.9 fL (7.4-10.4); Monocytes # 1.6 10^3/uL (0.2-0.9); Neutrophils # 1.45 10^3/uL (1.8-7.7); Neutrophils % 24.1 %; Nucleated Red Blood Cells % 0 %; Platelet Count 385 10^3/cmm (157-399); Red Blood Count 3.65 10^6/uL (3.85-5.65); White Blood Count 6.01 10^3/uL (3.29-11.43)
[2023-05-15 09:02] LABS: Basophils # 0.1 10^3/uL (0.0-0.1); Basophils % 0.4 %; Hematocrit 37.1 % (37-53); Lymphocytes # 2.8 10^3/uL (0.8-4.8); Lymphocytes % 16.5 %; Mean Corpuscular HGB Conc 33.2 g/dL (30-55); Mean Corpuscular Hemoglobin 30.5 pg (27-33); Mean Corpuscular Volume 92.1 fl (82-101); Mean Platelet Volume 9.4 fL (7.4-10.4); Monocytes # 1.6 10^3/uL (0.2-0.9); Monocytes % 9.5 %; Neutrophils # 12.26 10^3/uL (1.8-7.7); Neutrophils % 71.6 %; Nucleated Red Blood Cells % 0.1 %; Platelet Count 451 10^3/cmm (157-399); Red Blood Count 4.03 10^6/uL (3.85-5.65); Red Cell Distribution Width 15.8 % (12.1-15.1); White Blood Count 17.11 10^3/uL (3.29-11.43)
[2023-05-15 09:30] LABS: Alanine Aminotransferase 15 U/L (0-41); Albumin Level 3.6 g/dL (3.5-5.2); Alkaline Phosphatase 155 U/L (40-130); Anion Gap 13.2 (5-19); Aspartate Amino Transferase 16 U/L (0-40); Blood Urea Nitrogen 16 mg/dL (8-23); Calcium 9.5 mg/dL (8.5-10.5); Carbon Dioxide 25 mmol/L (22-29); Chloride 106 mmol/L (98-107); Globulin 3.1 g/dL (1.3-4.6); Glomerular Filtration Rate 134.8 mL/min (90-130); Glucose 148 mg/dL (65-115); Osmolality Calculated 294 mOsm/kg (285-295); Potassium 4.2 mmol/L (3.5-5.1); Sodium 140 mmol/L (136-145); Total Bilirubin 0.4 mg/dL (0.15-1.2); Total Protein 6.7 g/dL (6.6-8.7)
[2023-05-15 09:53] LABS: Creatinine Clr Calc Pharmacy 132.1681
[2023-05-15] MEDS: sodium chloride 0.9% 250 ML 75 ML IV (10:28)
[2023-05-15] MEDS: diphenhydrAMINE 50 mg/mL SDV 1mL 25 MG IVP (10:33)
[2023-05-15] MEDS: famotidine 20 mg/2 mL INJ IVP (10:34)
[2023-05-15] MEDS: palonosetron 0.25 mg/5 mL SDV IVP (10:36)
[2023-05-15 10:39] LABS: Prostate Specific Antigen 0.901 ng/mL (0-4)
[2023-05-15] MEDS: leuprolide 22.5 mg Kit IM (10:47)
[2023-05-15] MEDS: denosumab 120 mg SDV SUBCUT (10:48)
[2023-05-15] MEDS: [UNRECOGNIZED DRUG - REMARK] 262.600000000000023 MG IV (11:10)
== END 2023-05-15 23:59 | disposition home or self-care (01) ==
PROVIDERS: PCP Nurse Practitioner; Visit Provider Internal Medicine Medical Oncology
DX: Z51.11 Encounter for antineoplastic chemotherapy (principal); Z53.9 Procedure and treatment not carried out, unspecified reason; C61 Malignant neoplasm of prostate; F17.210 Nicotine dependence, cigarettes, uncomplicated; Z79.818 Long term (current) use of other agents affecting estrogen receptors and estrogen levels; C79.51 Secondary malignant neoplasm of bone; Z79.52 Long term (current) use of systemic steroids; Z79.899 Other long term (current) drug therapy
CPT/HCPCS: 36591; 80053; 84153; 85025; 96367; 96372; 96375; 96402; 96413; 99214; J0897; J1100; J1200; J1642; J2469; J3490; J7050; J9171; J9217

== ENCOUNTER 2023-06-05 10:19 | Oncology outpatient (recurring) (ONCR) | payer OTHER, SELFPAY ==
[2023-06-05 10:44] LABS: Basophils # 0.1 10^3/uL (0.0-0.1); Basophils % 0.3 %; Hematocrit 34.5 % (37-53); Lymphocytes # 3.7 10^3/uL (0.8-4.8); Lymphocytes % 20.8 %; Mean Corpuscular Hemoglobin 30.6 pg (27-33); Mean Corpuscular Volume 92.7 fl (82-101); Mean Platelet Volume 9.3 fL (7.4-10.4); Monocytes % 11.2 %; Neutrophils # 11.49 10^3/uL (1.8-7.7); Neutrophils % 65.5 %; Nucleated Red Blood Cells % 0.1 %; Platelet Count 393 10^3/cmm (157-399); Red Blood Count 3.72 10^6/uL (3.85-5.65); Red Cell Distribution Width 15.7 % (12.1-15.1); White Blood Count 17.54 10^3/uL (3.29-11.43)
[2023-06-05 11:13] LABS: Alanine Aminotransferase 11 U/L (0-41); Albumin Level 3.8 g/dL (3.5-5.2); Alkaline Phosphatase 98 U/L (40-130); Anion Gap 15.1 (5-19); Aspartate Amino Transferase 20 U/L (0-40); Blood Urea Nitrogen 15 mg/dL (8-23); Calcium 8.5 mg/dL (8.5-10.5); Carbon Dioxide 23 mmol/L (22-29); Chloride 102 mmol/L (98-107); Globulin 3.2 g/dL (1.3-4.6); Glomerular Filtration Rate 134.8 mL/min (90-130); Glucose 168 mg/dL (65-115); Osmolality Calculated 287 mOsm/kg (285-295); Potassium 4.1 mmol/L (3.5-5.1); Prostate Specific Antigen 0.538 ng/mL (0-4); Sodium 136 mmol/L (136-145); Total Bilirubin 0.3 mg/dL (0.15-1.2)
[2023-06-05] MEDS: sodium chloride 0.9% 250 ML 75 ML IV (13:23)
[2023-06-05] MEDS: diphenhydrAMINE 50 mg/mL SDV 1mL 25 MG IVP (13:25)
[2023-06-05] MEDS: famotidine 20 mg/2 mL INJ IVP (13:27)
[2023-06-05] MEDS: palonosetron 0.25 mg/5 mL SDV IVP (13:30)
[2023-06-05] MEDS: [UNRECOGNIZED DRUG - REMARK] 262.600000000000023 MG IV (14:12)
[2023-06-05 15:20] VITALS: BP 150/82; PULSE 68; RESP 16; O2SAT 95
== END 2023-06-18 23:59 | disposition home or self-care (01) ==
PROVIDERS: PCP Nurse Practitioner; Visit Provider Internal Medicine Medical Oncology
DX: Z53.9 Procedure and treatment not carried out, unspecified reason (principal); C61 Malignant neoplasm of prostate; C79.51 Secondary malignant neoplasm of bone; Z51.11 Encounter for antineoplastic chemotherapy; Z79.899 Other long term (current) drug therapy; R97.20 Elevated prostate specific antigen [PSA]; M79.606 Pain in leg, unspecified
CPT/HCPCS: 80053; 84153; 85025; 96367; 96375; 96413; 99214; J1100; J1200; J2469; J3490; J7050; J9171

== ENCOUNTER 2023-07-11 14:14 | Oncology outpatient (recurring) (ONCR) | payer OTHER, SELFPAY ==
[2023-07-11] MEDS: iohexol 350 mg/mL 500 mL Btl (per mL) PO (14:24)
--- NOTE | 2023-07-11 15:00 | CT_ITS ---
WS: [id number] CT ABDOMEN AND PELVIS WITH CONTRAST HISTORY: pelvic pain on right side, history of prostate cancer. TECHNIQUE: Imaging performed of the abdomen and pelvis with IV contrast. Single phase imaging of the abdomen. Coronal and sagittal reformats are submitted. All CT scans at [facility] use at [address] one of these dose optimization techniques: automated exposure control; mA and/or kV adjustment per patient size (includes targeted exams where dose is matched to clinical indication); or iterative re construction. IV CONTRAST: Omnipaque 350; 100 mL IV. Oral contrast: Yes. DLP: 1136.58 mGy.cm COMPARISON: None available. Lower thorax: Lung bases are clear. Heart is normal size. No hiatal hernia. Liver/biliary system: Liver is normal size. There are a few scattered very small hypodensities in the LEFT lobe of the liver which cannot be further characterized. Gallbladder: Prior cholecystectomy. No bile duct dilatation. Pancreas: Normal size pancreas and pancreatic duct. No adjacent inflammation. Spleen: Normal size spleen. No mass or infarct. Granulomata. Adrenal glands: 11 mm LEFT adrenal nodule. Normal RIGHT adrenal gland. Right kidney: Normal size kidney. Nonobstructing 5 mm calcification in the renal pelvis. Cortical hyp odensity 6 mm in the medial mid kidney. Left kidney: Cortical hypodensities. No mass or obstruction. Aorta: Moderate atherosclerosis with no aneurysm. Calcified plaque scattered in the SMA. No obstructi on. Lymphadenopathy: None. Free fluid: None. GI tract: Marked distention of the stomach with oral contrast and food products. No small bowel obstr uction. No outlet obstruction. There is mild thickening at the antrum but [id number] and probably related to contraction. Mild diffuse fecal retention. Minimal diverticular disease. No acute divertic ulitis. No appendicitis. Abdominal wall: Unremarkable abdominal wall. No hernia. Pelvis: No free fluid or adenopathy within the pelvis. Nondistended urinary bladder. Prostate calcifi cations. There is very mild skin thickening and distortion at the RIGHT groin which is similar to the prior study from 02/06/2021. This may be from a prior procedure. There are surgical clips present larose ggesting a prior hernia repair although that history was not provided by the patient. No inguinal pat hologic lymph nodes. There are a few lymph nodes similar to 02/06/2021. There also appears to be a st ent in the RIGHT external iliac artery. Bones: There are numerous sclerotic foci throughout the visualized bones in the abdomen and pelvis. H ighly suspicious for metastatic sites. The sclerotic foci involve the visualized lower thoracic and l umbar vertebral bodies and pelvis. There is a more focal sclerotic lesion in the RIGHT superior iliac crest. Additional smaller sclerotic foci within the proximal femora and throughout the pelvis. Large st sclerosis involves the LEFT sacrum measuring 3.[address]/CT abdomen pelvis w con* [id number] IMPRESSION: 1. Numerous osteoblastic bone lesions within the visualized thoracic and lumba r spines, pelvis, sacrum and proximal femora highly suspicious for prostate met astatic disease. Consider bone scan follow-up. 2. Prior cholecystectomy. 3. Marked distention of the stomach may be due to a recent meal. 4. Postsurgical changes at the RIGHT groin. 5. 11 mm LEFT adrenal nodule. Too small to characterize on this postcontrast e xam. May be a small benign adenoma or early metastatic site.
[2023-07-11] MEDS: iohexol 350 mg/mL 500 mL Btl (per mL) IV (15:17)
== END 2023-07-19 23:59 | disposition home or self-care (01) ==
LOC: RAD 07-16 15:16 → ONCMED 07-17 18:49
PROVIDERS: PCP Nurse Practitioner; Visit Provider Nurse Practitioner Family
DX: Z53.9 Procedure and treatment not carried out, unspecified reason (principal); R10.2 Pelvic and perineal pain; Z85.46 Personal history of malignant neoplasm of prostate; M89.9 Disorder of bone, unspecified; K31.89 Other diseases of stomach and duodenum; Z90.49 Acquired absence of other specified parts of digestive tract
CPT/HCPCS: 74177; Q9967

== ENCOUNTER 2023-07-22 14:35 | Oncology outpatient (recurring) (ONCR) | payer OTHER, SELFPAY | END 2023-08-18 23:59 | disposition home or self-care (01) | PROVIDERS: PCP Nurse Practitioner; Visit Provider Nurse Practitioner Family | DX: C61 Malignant neoplasm of prostate; C79.51 Secondary malignant neoplasm of bone; Z79.899 Other long term (current) drug therapy; R53.83 Other fatigue; Z92.21 Personal history of antineoplastic chemotherapy; Z79.818 Long term (current) use of other agents affecting estrogen receptors and estrogen levels | CPT/HCPCS: 99214 ==

== ENCOUNTER → 2023-08-01 14:00 | Outpatient (BNVA) | payer OTHER, SELFPAY | PROVIDERS: PCP Nurse Practitioner; Visit Provider Dermatology | DX: D48.5 Neoplasm of uncertain behavior of skin (principal) | CPT/HCPCS: 11104; 17000; 99204 ==

== ENCOUNTER 2023-08-26 14:21 | Oncology outpatient (recurring) (ONCR) | payer OTHER, SELFPAY ==
[2023-08-26 15:01] LABS: Basophils # 0.1 10^3/uL (0.0-0.1); Basophils % 0.7 %; Eosinophils # 0.6 10^3/uL (0.0-0.8); Eosinophils % 6.5 %; Hematocrit 37.2 % (37-53); Lymphocytes # 3.4 10^3/uL (0.8-4.8); Lymphocytes % 35.7 %; Mean Corpuscular HGB Conc 33.1 g/dL (30-55); Mean Corpuscular Hemoglobin 29.7 pg (27-33); Mean Corpuscular Volume 89.9 fl (82-101); Mean Platelet Volume 10.1 fL (7.4-10.4); Monocytes % 10.1 %; Neutrophils # 4.43 10^3/uL (1.8-7.7); Neutrophils % 46.8 %; Nucleated Red Blood Cells % 0 %; Platelet Count 302 10^3/cmm (157-399); Red Blood Count 4.14 10^6/uL (3.85-5.65); Red Cell Distribution Width 14.8 % (12.1-15.1); White Blood Count 9.45 10^3/uL (3.29-11.43)
[2023-08-26] MEDS: leuprolide 22.5 mg Kit IM (15:06)
[2023-08-26 15:27] LABS: Alanine Aminotransferase < 5 U/L (0-41); Albumin Level 3.8 g/dL (3.5-5.2); Alkaline Phosphatase 88 U/L (40-130); Anion Gap 13.6 (5-19); Aspartate Amino Transferase 13 U/L (0-40); Blood Urea Nitrogen 12 mg/dL (8-23); Calcium 8.9 mg/dL (8.5-10.5); Carbon Dioxide 25 mmol/L (22-29); Chloride 104 mmol/L (98-107); Globulin 3.1 g/dL (1.3-4.6); Glomerular Filtration Rate 112.8 mL/min (90-130); Glucose 199 mg/dL (65-115); Osmolality Calculated 293 mOsm/kg (285-295); Potassium 3.6 mmol/L (3.5-5.1); Prostate Specific Antigen 0.031 ng/mL (0-4); Sodium 139 mmol/L (136-145); Testosterone Total 2.5 ng/dL (193-740); Total Bilirubin 0.4 mg/dL (0.15-1.2); Total Protein 6.9 g/dL (6.6-8.7)
--- NOTE | 2023-08-26 15:33 | USCV_ITS ---
Cristina Tan Age: 68 Gender: M : 1955 Exam Date: 08/26/2023 15:34 Ordering Phys: Stephanie Laughlin APRN Technologist: AMAN [place] [facility] Indication: LE Swelling HISTORY: Lower extremity edema. PROCEDURES: Venous duplex imaging was performed in only the right lower extremity. The following venous structures were evaluated: common femoral vein, profunda vein, proximal portion of the greater saphenous vein, superficial femoral vein, and the popliteal vein. In addition, the posterior tibial and peroneal trunk were evaluated. Serial compression, augmentation maneuvers, and spectral Doppler flow evaluation were performed. FINDINGS: No evidence of DVT seen in any vessel visualized at this time. CONCLUSIONS No evidence of right lower extremity DVT. Alonzo Barksdale MD (Electronically Signed) Final Date: 26 August 2023 15:55 S
== END 2023-09-18 23:59 | disposition home or self-care (01) ==
PROVIDERS: Internal Medicine Medical Oncology; PCP Nurse Practitioner; Visit Provider Nurse Practitioner Family
DX: C61 Malignant neoplasm of prostate (principal); C79.51 Secondary malignant neoplasm of bone; R97.20 Elevated prostate specific antigen [PSA]; R60.0 Localized edema
CPT/HCPCS: 36591; 80053; 84153; 84403; 85025; 93971; 96402; J9217

== ENCOUNTER 2023-10-02 14:32 | Oncology outpatient (recurring) (ONCR) | payer OTHER, SELFPAY | END 2023-10-19 23:59 | disposition home or self-care (01) | PROVIDERS: PCP Nurse Practitioner; Visit Provider Nurse Practitioner Family | DX: C61 Malignant neoplasm of prostate (principal); C79.51 Secondary malignant neoplasm of bone; R97.20 Elevated prostate specific antigen [PSA]; R60.0 Localized edema ==

== ENCOUNTER → 2023-11-12 09:37 | Outpatient (BNVA) | payer OTHER, SELFPAY | PROVIDERS: PCP Nurse Practitioner; Visit Provider Physician Assistant | DX: L98.9 Disorder of the skin and subcutaneous tissue, unspecified (principal); R22.32 Localized swelling, mass and lump, left upper limb | CPT/HCPCS: 73130; 99204 ==

== ENCOUNTER 2023-11-18 13:30 | Oncology outpatient (recurring) (ONCR) | payer OTHER, SELFPAY ==
[2023-11-07 13:09] LABS: Basophils # 0.1 10^3/uL (0.0-0.1); Basophils % 0.9 %; Eosinophils # 0.7 10^3/uL (0.0-0.8); Eosinophils % 6.6 %; Hematocrit 39.5 % (37-53); Lymphocytes % 35.7 %; Mean Corpuscular HGB Conc 32.9 g/dL (30-55); Mean Corpuscular Hemoglobin 30.5 pg (27-33); Mean Corpuscular Volume 92.7 fl (82-101); Mean Platelet Volume 9.6 fL (7.4-10.4); Monocytes # 1.1 10^3/uL (0.2-0.9); Monocytes % 10.1 %; Neutrophils # 5.23 10^3/uL (1.8-7.7); Neutrophils % 46.4 %; Nucleated Red Blood Cells % 0 %; Platelet Count 340 10^3/cmm (157-399); Red Blood Count 4.26 10^6/uL (3.85-5.65); Red Cell Distribution Width 13.8 % (12.1-15.1); White Blood Count 11.24 10^3/uL (3.29-11.43)
[2023-11-07 13:45] LABS: Alanine Aminotransferase 10 U/L (0-41); Alkaline Phosphatase 109 U/L (40-130); Anion Gap 16.7 (5-19); Aspartate Amino Transferase 20 U/L (0-40); Blood Urea Nitrogen 18 mg/dL (8-23); Calcium 8.9 mg/dL (8.5-10.5); Carbon Dioxide 26 mmol/L (22-29); Chloride 104 mmol/L (98-107); Globulin 3.6 g/dL (1.3-4.6); Glomerular Filtration Rate 112.8 mL/min (90-130); Glucose 108 mg/dL (65-115); Osmolality Calculated 296 mOsm/kg (285-295); Potassium 4.7 mmol/L (3.5-5.1); Prostate Specific Antigen 0.019 ng/mL (0-4); Sodium 142 mmol/L (136-145); Testosterone Total 5.6 ng/dL (193-740); Total Bilirubin 0.4 mg/dL (0.15-1.2); Total Protein 7.6 g/dL (6.6-8.7)
[2023-11-18] MEDS: denosumab 120 mg SDV SUBCUT (13:53)
[2023-11-18] MEDS: leuprolide 22.5 mg Kit IM (13:54)
[2023-11-18 13:59] VITALS: BP 177/84; PULSE 64; TEMP 36.2; O2SAT 97
== END 2023-11-18 23:59 | disposition home or self-care (01) ==
PROVIDERS: Internal Medicine Medical Oncology; PCP Nurse Practitioner; Visit Provider Nurse Practitioner Family
DX: Z53.9 Procedure and treatment not carried out, unspecified reason; Z79.899 Other long term (current) drug therapy; C79.51 Secondary malignant neoplasm of bone; C61 Malignant neoplasm of prostate
CPT/HCPCS: 36591; 80053; 84153; 84403; 85025; 96372; 96402; 99214; J0897; J9217

== ENCOUNTER 2023-12-16 12:55 | Oncology outpatient (recurring) (ONCR) | payer OTHER, SELFPAY ==
[2023-12-16] MEDS: denosumab 120 mg SDV SUBCUT (13:23)
== END 2023-12-19 23:59 | disposition home or self-care (01) ==
LOC: ONCMED 12:55
PROVIDERS: PCP Nurse Practitioner; Visit Provider Nurse Practitioner Family
DX: C61 Malignant neoplasm of prostate (principal); C79.51 Secondary malignant neoplasm of bone; Z51.11 Encounter for antineoplastic chemotherapy; Z45.2 Encounter for adjustment and management of vascular access device; Z79.899 Other long term (current) drug therapy
CPT/HCPCS: 96372; 96523; J0897

== ENCOUNTER → 2023-12-24 13:18 | Outpatient (BNVA) | payer OTHER, SELFPAY | PROVIDERS: PCP Nurse Practitioner; Visit Provider Internal Medicine Cardiovascular Disease | DX: I45.10 Unspecified right bundle-branch block (principal); I21.29 ST elevation (STEMI) myocardial infarction involving other sites; I49.8 Other specified cardiac arrhythmias; R07.9 Chest pain, unspecified | CPT/HCPCS: 93005 ==

== ENCOUNTER 2023-12-26 05:45 | Day surgery (SDC) | payer OTHER, SELFPAY ==
--- NOTE | 2023-12-25 16:29 | SUR.PREOP ---
1048 Spoke with patient regarding his home medications, he stated that I just went over them the other day and they should be correct,informed pt that we still need to go over all his medications today for safety reasons and know when he last took all of his rx,he stated that his put his medications in storage containers so he doesn't know the names or dosages,informed him that his will need to call us back [facility] unit manager called pt to confirm surgery arrival time and stated his is still not at home to confirm his medications
[2023-12-26] VITALS (7 sets, daily range): BP systolic 106–154; BP diastolic 61–91; PULSE 65–70; RESP 16–18; TEMP 36.1–36.3; O2SAT 95–97; BMI 42.1
[2023-12-26] MEDS: sodium chloride 0.9% 1,000 ML 30 ML IV (06:43)
[2023-12-26] MEDS: acetaminophen 1,000 MG/100 ML PIGGYBACK 400 MG IV (06:43)
[2023-12-26] MEDS: scopolamine 1.5 Patch 1 PATCH TRANSDERMA (06:43)
[2023-12-26] MEDS: ketorolac 30 mg/mL INJ IVP (06:44)
--- NOTE | 2023-12-26 06:49 | P.HP_ITS ---
Same Day Surgery H&P Indication for Procedure/HPI DATE OF PROCEDURE: December 26, 2023 CHIEF COMPLAINT/INDICATIONFOR SURGICAL PROCEDURE: Left thumb mass with nail defect PREOP DIAGNOSIS: Left thumb mass with nail defect PLANNED PROCEDURE: Operation Date: 12/26/23 07:00 Proposed Procedures p left thumb mass excision(Left) - Jason Harvey DO s Nail Plate Removal(Left) - Jason Harvey DO Medications/Allergies* Home Medications Medication Instructions Recorded Confirmed Type losartan 100 mg tablet 100 mg PO DAILY 04/08/19 12/26/23 History metoprolol succinate 100 mg 50 mg PO DAILY 04/08/19 12/26/23 History tablet,extended release 24 hr sumatriptan succinate 100 mg tablet See Rx Instructions PO .COMPLEX 09/07/20 12/26/23 History PRN Migraine Headache aspirin 81 mg tablet,delayed 81 mg PO DAILY 07/12/21 12/26/23 History release Fish Oil 1 tab PO DAILY 12/28/21 12/26/23 History pantoprazole 40 mg tablet,delayed 40 mg PO DAILY 01/31/23 12/26/23 History release glipizide 5 mg tablet 5 mg PO BID 04/24/23 12/26/23 History metformin 500 mg tablet,extended 1,000 mg PO BID 04/24/23 12/26/23 History release 24 hr CPAP 12/24/23 12/24/23 History Allergies/Adverse Reactions Allergy/AdvReac Type Severity Reaction Status Date / Time dexamethasone Allergy unknown Verified 12/24/23 13:23 hydrocodone Allergy NA Verified 12/24/23 13:23 morphine Allergy NA Verified 12/24/23 13:23 Current Medications: Generic Name Dose Route Start Last Admin Trade Name Freq PRN Reason Stop Dose Admin Sodium Chloride 1,000 mls @ 30 mls/hr 12/26/23 06:00 12/26/23 06:43 Sodium Chloride 0.9% IV 12/27/23 05:59 30 mls/hr .Q24H LANCE Administration Pertinent History/Comorbid Conditions* Medical History (Updated 11/12/23 @ 10:56 by EUGENE Villeda) Peripheral arterial disease Type 2 diabetes mellitus Migraine, unspecified, not intractable, without status migrainosus Prostate cancer metastatic to bone Pulmonary nodule Essential hypertension Asthma with chronic obstructive pulmonary disease (COPD) GERD (gastroesophageal reflux disease) Obesity Sleep apnea Surgical History (Updated 02/27/23 @ 13:21 by Toñito Sierra MD) History of endarterectomy S/P tonsillectomy H/O cervical spine surgery C5/6 fusion S/P arterial stent (2020) Placement of common iliac artery stent bilaterally and right external iliac artery stent S/P arthroscopic knee surgery S/P inguinal hernia repair S/P cholecystectomy S/P rotator cuff repair S/P cataract surgery Family History (Updated 04/02/19 @ 16:31 by Isabella Bernal RN) Father, 80 Mother, at age 82 Diabetes Father Mother CAD (coronary artery disease) Mother Chronic kidney disease (CKD) Father Hypertension Mother Social History Smoking and tobacco/nicotine status: current every day tobacco/nicotine user cigarettes Packs smoked per day: 0.5 Years cigarettes smoked: 50 Alcohol intake: never Substance/Drug Use: never Marital status: Current occupational status: disabled Pertinent Exam Findings alert, oriented x 3, operative site marked and procedure specific exam findings Please refer to detailed orthopedic examination on 11/12/2023 listed below: Left hand exam- patient has a palpable firm and tender mass on the DIP joint of left thumb. Mass is also interfering with nail plate and causing a nail deformity. Negative Hollister sign. Full range of motion in wrist. No A1 barbie tenderness and no mechanical locking or catching of any fingers. Patient does have some mild paronychia of thumb Recommendations Surgery/Procedure today Other Plans: Plan to proceed to the OR today for left thumb mass excision with possible nail plate removal. Patient understands the ins and outs of procedure the risk benefits complication alternatives of surgery and through shared decision-making elects proceed with surgical intervention. All questions answered at this time. Coding Level of Care Code Acute Code for Chg Fwd
--- NOTE | 2023-12-26 06:54 | ANES.PREANE2 ---
Pre-Anesthetic Assessment Height/Weight: Height 1.8 m Weight 136.985 kg Temp Pulse Resp BP Pulse Ox O2 Del Method 97.0 F L 70 18 154/91 95 Room Air 12/26/23 06:03 12/26/23 06:03 12/26/23 06:03 12/26/23 06:03 12/26/23 06:03 12/26/23 06:10 Preop Diagnosis: Left thumb mass with nail defect Operation Date: 12/26/23 07:00 Proposed Procedures p left thumb mass excision(Left) - Jason Harvey DO s Nail Plate Removal(Left) - Jason Harvey DO Familial anesthetic complications: None Was Beta Twin taken within 24 hours: N/A Was Clonidine taken within 24 hours: N/A Last intake: Intake Last Liquid Date 12/25/23 Last Liquid Time 19:00 Last Solid Date 12/25/23 Last Solid Time 19:00 Social No alcohol and No tobacco Exam alert, oriented x 3, clear to auscultation bilaterally and regular rate & rhythm Airway Mallampati: Class IV Dentition: false Pulmonary Chronic Obstructive Pulmonary Disease and Sleep Apnea CV/HEM Hypertension and Peripheral Vascular Disease RBBB Denies any Chest pain, SOB, syncope - states he had a lung biopsy last week and did tolerated the anesthesia GI Gastroesophageal Reflux Disease Metabolic Diabetes Mellitus Anesthetic Plan ASA status: 4 Anesthesia: Choice Risk of > 500 ml blood loss (7ml/kg in children): No Medications/Allergies Home Medications Medication Instructions Recorded Confirmed Last Taken Type losartan 100 mg tablet 100 mg PO DAILY 04/08/19 12/26/23 12/25/23 History metoprolol succinate 100 mg 50 mg PO DAILY 04/08/19 12/26/23 12/25/23 History tablet,extended release 24 hr sumatriptan succinate 100 mg tablet See Rx Instructions PO .COMPLEX 09/07/20 12/26/23 12/31/21 History PRN Migraine Headache celecoxib 100 mg capsule (Celebrex) 200 mg (2 x 100 mg) PO BID #20 caps 02/06/21 12/26/23 1 Week Ago Rx ~12/19/23 aspirin 81 mg tablet,delayed 81 mg PO DAILY 07/12/21 12/26/23 12/19/23 History release Fish Oil 1 tab PO DAILY 12/28/21 12/26/23 1 Week Ago History ~12/19/23 pantoprazole 40 mg tablet,delayed 40 mg PO DAILY 01/31/23 12/26/23 12/25/23 History release meloxicam 15 mg tablet 15 mg PO DAILY #7 tabs 02/13/23 12/26/23 12/25/23 Rx lidocaine-prilocaine 2.5 %-2.5 % 1 applic topical .COMPLEX #30 grams 04/03/23 12/26/23 Unknown Rx topical cream glipizide 5 mg tablet 5 mg PO BID 04/24/23 12/26/23 12/25/23 History metformin 500 mg tablet,extended 1,000 mg PO BID 04/24/23 12/26/23 12/25/23 History release 24 hr darolutamide 300 mg tablet 600 mg (2 x 300 mg) PO BID 21 days 10/01/23 12/26/23 12/25/23 Rx #84 tabs CPAP 12/24/23 12/24/23 Unknown History nitroglycerin 0.4 mg sublingual 0.4 mg sublingual Q5M PRN chest 12/24/23 12/26/23 Unknown Rx tablet pain #25 tabs Allergies Allergy/AdvReac Type Severity Reaction Status Date / Time dexamethasone Allergy unknown Verified 12/24/23 13:23 hydrocodone Allergy NA Verified 12/24/23 13:23 morphine Allergy NA Verified 12/24/23 13:23 Current Medications Generic Name Dose Route Start Last Admin Trade Name Freq PRN Reason Stop Dose Admin Sodium Chloride 1,000 mls @ 30 mls/hr 12/26/23 06:00 12/26/23 06:43 Sodium Chloride 0.9% IV 12/27/23 05:59 30 mls/hr .Q24H LANCE Administration PFSH Anesthesia Medical History Peripheral arterial disease Type 2 diabetes mellitus Migraine, unspecified, not intractable, without status migrainosus Prostate cancer metastatic to bone Pulmonary nodule Essential hypertension Asthma with chronic obstructive pulmonary disease (COPD) GERD (gastroesophageal reflux disease) Obesity Sleep apnea Surgical History History of endarterectomy S/P tonsillectomy H/O cervical spine surgery C5/6 fusion S/P arterial stent (2020) Placement of common iliac artery stent bilaterally and right external iliac artery stent S/P arthroscopic knee surgery S/P inguinal hernia repair S/P cholecystectomy S/P rotator cuff repair S/P cataract surgery Family History Father , 80 Chronic kidney disease (CKD) Diabetes Mother , at age 82 Hypertension Diabetes CAD (coronary artery disease) Social History Smoking and tobacco/nicotine status: current every day tobacco/nicotine user cigarettes Packs smoked per day: 0.5 Years cigarettes smoked: 50 Alcohol intake: never Substance/Drug Use: never Marital status: Current occupational status: disabled Data Anesthesia Cardiac Studies: Echocardiogram Ultrasound 03/23/20 Sestamibi Stress Test (Cardiology) 03/21/20
[2023-12-26] MEDS: ceFAZolin 1,000 mg SDV 1000 MG IVP (06:57)
[2023-12-26] MEDS: ceFAZolin 2,000 MG in sodium chloride 0.9% (plus) 50 ML 100 MG IV (06:57)
[2023-12-26] MEDS: ROPivacaine 0.5% SDV 30 mL 150 MG INJECTION (07:23)
[2023-12-26] MEDS: lidocaine 1% 10 ML INJ XX (07:23)
--- NOTE | 2023-12-26 07:48 | P.BOP_ITS ---
Date of Procedure: 12/26/2023 Surgeon: Jason Harvey DO Software Development Advisor(s): None Procedure(s) performed: Left thumb mass (chondroma) excision (1.5 cm x 1 cm x 0.5 cm) Findings of the procedure(s): Patient was found to have a large thumb mass consistent with a chondroma on the radial side of the thumb digit pressing onto the germinal matrix of nail plate causing nail deformity this appears to be intact after this was completely excised. This was excised its entirety and sen t for pathology. Patient Toller procedure well without issues or complications taken PACU stable condition Estimated blood loss: 5 mL Specimen(s) removed: Left thumb chondroma mass excised and sent for pathology Post-operative diagnosis: Left thumb chondroma
--- NOTE | 2023-12-26 07:50 | PM.OP ---
Operative Report Date of procedure: December 26, 2023 Surgeon: Jason Harvey DO Procedure: Preoperative diagnosis: Left thumb mass ( chondroma) post-op diagnosis: Same Procedure done: Left thumb mass (chondroma) excision (1.5 cm x 1 cm x 0.5 cm) Surgeon: Jason Harvey DO Estimated blood loss: 5 mL Tourniquet time 17 minutes IV fluids: 350 mL Complications: None Findings: See operative report narrative Condition: stable Disposition: same day Brief History: Patient presents to the outpatient setting with findings consistent with a Left thumb?mass?.? pt has been worked up in the outpatient setting and is failed conservative treatment approach.? Patient has Left thumb noticeable?mass?pushing on the nail.? Patient had a biopsy with dermatology and consistent with chondroma. pt elects to proceed with surgical intervention.? We talked about the risk benefits complications and alternatives with surgical nonsurgical treatment options.? Understanding risk of surgery pt agrees to proceed with a Left thumb?mass?excision.? All questions answered. Procedure: Patient was seen evaluated in the preoperative holding area.? Consent was reviewed and signed with patient.? Correct extremity was then marked.? Patient was then seen and evaluated by the anesthesia department once cleared for surgery patient was then taken back to the operative suite patient was placed in supine position and all bony prominences well-padded the patient was properly secured to the bed.? Armboard was applied to the Left upper extremity. This point time the Left upper extremity was then prepped and draped in standard orthopedic fashion.? A final timeout was performed.? Patient received appropriate preoperative antibiotics. Prior to proceeding with incision sites I then performed digital block of the Left thumb under sterile aseptic technique Esmarch tourniquet was used exsanguinate the left upper extremity tourniquet insufflated 250 mmHg ? Left thumb was then identified as well as the?mass??over the radial aspect of the thumb. I made a standard longitudinal incision directly over this area up to the excess denser DIP crease I subsequently made a transverse L-shaped incision in this pattern to help mobilize this full-thickness skin flap I utilized sharp scalpel incision through skin only and then switched to gentle dissection with a Shoshone-Bannock blade mobilized around the entirety of the mass which was putting pressure on the nail plate as well as germinal matrix. At this point in time I ellipsed out this chondroma to its entirety with the Shoshone-Bannock blade and skeletonized this off of the radial aspect of the bone where this had appeared to originate from. I utilized a rongeur at the wound bed as well as electrocautery at the wound bed the mass was removed to its entirety measuring 1.5 cm x 1 cm x 0.5 cm this was sent for final pathology and specimen. I then at this point time utilized bipolar electrocautery to cauterize the entire bed of the chondroma and confirm all cartilaginous tissue was excised. There still appeared to have germinal matrix intact this did not invade deeper or transverse dorsally. As a result I left the nailbed and plate alone as I feel this was all caused by a mass effect from the chondroma. Tourniquet was deflated hemostasis was satisfactory with bipolar electrocautery and pressure. I thoroughly irrigated the wound bed once more and then closed this in standard interrupted nylon suture fashion. Incision sites were then dressed with Xeroform 4 x 4's Kerlix Bam wrap and an Bandar wrap.? Patient was then awakened from anesthesia and taken to PACU in stable condition. Disposition: Patient taken to PACU in stable condition recovering well.? Dressing on in place clean dry and intact.? Patient was receive appropriate discharge instruction as well as pain medication postoperatively.? Patient may be allowed weightbearing as tolerated to the Left hand and encourage range of motion once dressing come down after 72 hours.? Patient to follow-up with Ortho in the office in 2 weeks.? Patient understands and agrees with current plan.? All questions answered.
--- NOTE | 2023-12-26 08:40 | ANE.PACU2 ---
Inpatient post-anesthesia follow up: Airway intact: Yes Vital signs: Temperature 97 F Pulse Rate 70 Respiratory Rate 18 Blood Pressure 137/61 Pulse Oximetry 95 Oxygen Delivery Me thod Room Air Oxygen Flow Rate Fraction of Inspir ed Oxygen Hydration adequate: Yes Nausea and vomiting: No Pain level: 1 Mental status: Baseline
[2023-12-26 11:55] LABS: Glucose Point of Care 123 mg/dL (70-110)
== END 2023-12-26 08:44 | disposition home or self-care (01) ==
PROVIDERS: PCP Nurse Practitioner; Visit Provider Student in an Organized Health Care Education/Training Program
PROC: (CPT 26111; principal; 2023-12-26 07:00)
DX: D16.12 Benign neoplasm of short bones of left upper limb (principal); Z79.82 Long term (current) use of aspirin; E11.9 Type 2 diabetes mellitus without complications; I10 Essential (primary) hypertension; K21.9 Gastro-esophageal reflux disease without esophagitis; E66.9 Obesity, unspecified; Z68.41 Body mass index [BMI] 40.0-44.9, adult; G47.30 Sleep apnea, unspecified; F17.210 Nicotine dependence, cigarettes, uncomplicated; J44.9 Chronic obstructive pulmonary disease, unspecified
CPT/HCPCS: 26111; 36416; 82962; 88304; J0131; J0690; J1885; J2704; J2795; J3010; J7030

== ENCOUNTER → 2024-01-09 14:31 | Outpatient (BNVA) | payer OTHER, SELFPAY | PROVIDERS: PCP Nurse Practitioner; Visit Provider Physician Assistant | DX: R22.32 Localized swelling, mass and lump, left upper limb (principal); Z98.890 Other specified postprocedural states | CPT/HCPCS: 99024 ==

== ENCOUNTER 2024-01-13 13:01 | Oncology outpatient (recurring) (ONCR) | payer OTHER, SELFPAY ==
[2024-01-13 13:25] LABS: Basophils # 0.1 10^3/uL (0.0-0.1); Basophils % 0.9 %; Eosinophils # 0.6 10^3/uL (0.0-0.8); Eosinophils % 5.5 %; Hematocrit 38.6 % (37-53); Lymphocytes # 4.3 10^3/uL (0.8-4.8); Lymphocytes % 37.9 %; Mean Corpuscular HGB Conc 33.7 g/dL (30-55); Mean Corpuscular Hemoglobin 29.8 pg (27-33); Mean Corpuscular Volume 88.5 fl (82-101); Mean Platelet Volume 9.4 fL (7.4-10.4); Monocytes # 1.2 10^3/uL (0.2-0.9); Monocytes % 10.8 %; Neutrophils # 5.06 10^3/uL (1.8-7.7); Neutrophils % 44.5 %; Nucleated Red Blood Cells % 0 %; Platelet Count 334 10^3/cmm (157-399); Red Blood Count 4.36 10^6/uL (3.85-5.65); Red Cell Distribution Width 13.5 % (12.1-15.1); White Blood Count 11.35 10^3/uL (3.29-11.43)
[2024-01-13 13:54] LABS: Alanine Aminotransferase 11 U/L (0-41); Albumin Level 3.7 g/dL (3.5-5.2); Alkaline Phosphatase 97 U/L (40-130); Anion Gap 15.2 (5-19); Aspartate Amino Transferase 15 U/L (0-40); Blood Urea Nitrogen 15 mg/dL (8-23); Calcium 9.4 mg/dL (8.5-10.5); Carbon Dioxide 27 mmol/L (22-29); Chloride 99 mmol/L (98-107); Globulin 3.5 g/dL (1.3-4.6); Glomerular Filtration Rate 84.4 mL/min (90-130); Glucose 148 mg/dL (65-115); Osmolality Calculated 288 mOsm/kg (285-295); Potassium 4.2 mmol/L (3.5-5.1); Sodium 137 mmol/L (136-145); Total Bilirubin 0.6 mg/dL (0.15-1.2); Total Protein 7.2 g/dL (6.6-8.7)
[2024-01-13 13:56] LABS: Prostate Specific Antigen < 0.014 ng/mL (0-4)
[2024-01-13] MEDS: denosumab 120 mg SDV SUBCUT (14:32)
== END 2024-01-18 23:59 | disposition home or self-care (01) ==
LOC: ONCMED 13:03
PROVIDERS: Nurse Practitioner Family; PCP Nurse Practitioner; Visit Provider Nurse Practitioner Family
DX: Z51.11 Encounter for antineoplastic chemotherapy (principal); C61 Malignant neoplasm of prostate; C79.51 Secondary malignant neoplasm of bone; Z79.899 Other long term (current) drug therapy
CPT/HCPCS: 36591; 80053; 84153; 84403; 85025; 96372; J0897

== ENCOUNTER 2024-01-29 07:05 | Outpatient (CLI) | payer OTHER, SELFPAY ==
--- NOTE | 2024-01-29 | ECG_ITS ---
[facility] Date: 2024-01[facility]29 Pat Name: Cristina Tan Department: Room: Gender: Male Adjuster: : 1955 Requested By: Kenyon Diaz Order Number: [id number] [id number] MD: Preston Bangura M.D. Interpretive Statements LEXISCAN SESTAMIBI STRESS TEST Procedure: At the baseline, the blood pressure was 194/107 mmHg with a heart rate of 75 bpm. The electrocardiogram showed normal sinus rhythm, incomplete right bundle branch block with normal ST and T's. The Lexiscan was infused over a period of 20 seconds. A total of 0.4 mg of Lexiscan was infused. The stress phase was continued for a total of 5 minutes. Heart rate was at the end of stress phase was 83 bpm and a blood pressure of 182/96 mmHg. The EKG at the peak infusion revealed normal sinus rhythm with no significant ST-T wave changes. Sestamibi was injected 20 seconds after the Lexiscan infusion. Blood pressure at the end of recovery phase was 190/99 mmHg with a heart rate of 85 bpm. Conclusion: 1. Normal EKG response to Lexiscan infusion 2. No Lexiscan induced chest pain or cardiac arrhythmia. 3. Normal blood pressure and heart rate response. 4. Sestamibi/sestamibi perfusion scan pending; see separate report. Electronically Signed On 02-03-2024 08:51:52 MOLD MECHANIC by Preston Bangura M.D. [email or web address]
--- NOTE | 2024-01-29 07:32 | NMCV_ITS ---
NM edie perf SPECT r/s* [id number] Cristina Tan Age: 68 Gender: M : 1955 Exam Date: 01/29/2024 08:14 Ordering Phys: Kenyon Diaz MD ([email or web address]) Technologist: JACKIE Heath Exam Location: [facility] Indications: CP STRESS TEST Please [facility] IMAGE PROTOCOL Rest/Stress 1 Lexiscan Day Radiopharmaceutical Dose (mCi) Administration Site Administered by Rest: Tc-99m 10.8 IV JACKIE Heath Sestamibi Stress:Tc-99m 32.8 IV JACKIE De Guzman Sestamibi Rest: 29-Jan-2024 60 Discovery 630 Stress: 29-Jan-2024 30 Discovery 630 0.4mg Lexiscan. Images obtained in supine and prone position. SPECT RESULTS Technical Quality: Good Raw Data Analysis: Soft tissue attenuation Image Corrections: No attenuation or motion correction applied Summed Stress Score: 10 Summed Rest Score: 11 Summed Difference Score: 3 PERFUSION FINDINGS There is medium sized partially reversible area of moderate intensity perfusion defect seen in apical, apical anterior and apical lateral castro. There is represents prior infarct with medium sized area of delia-infarct ischemia in these castro. There is medium sized area of fixed perfusion defect seen in inferior wall. This is consistent with medium sized area of prior infarct seen in RCA territory. FUNCTIONAL RESULTS (calculated via Gated SPECT) Stress Image LV EF (%): 39 Stress EDV (mL):207 TID: 0.99 Stress ESV (mL):126 FUNCTIONAL FINDINGS: LV systolic function is moderately reduced with EF 39%. IMPRESSIONS 1. Abnormal myocardial perfusion imaging with small to medium sized area of prior infarct with medium sized area of delia-infarct ischemia seen in apical, apical anterior and apical lateral castro. 2. Medium sized area of prior infarct seen in the inferior wall. 3. LV systolic function is moderately reduced with EF of 39%. Preston Bangura MD (Electronically Signed) Final Date: 29 January 2024 17:28 S
[2024-01-29] MEDS: regadenoson 0.4 Mg/5 ml Syringe IVP (08:45)
[2024-01-29 09:01] VITALS: BP 190/99; PULSE 86
--- NOTE | 2024-01-29 09:55 | USCV_ITS ---
Cristina Tan Age: 68 Gender: M : 1955 Exam Date: 01/29/2024 10:06 Ordering Phys: Kenyon Diaz MD ([email or web address]) Technologist: CT [place] [facility] [place]: cp BP: 147 / 72 HR: 79 Rhythm: Sinus Technical Quality: Adequate MEASUREMENTS (Male / Female) Normal Values 2D ECHO LVOT Diameter 2.1 cm LV Ejection Fraction MOD 4C 41.1 % LV Ejection Fraction MOD 2C 49.0 % LV Ejection Fraction 2C AL 47.9 % LA Diameter 4.7 cm LA Sys Volume AL 133.6 cm cubed LA Sys Volume Index AL 49.8 cm cubed/m squared Aorta at Sinotubular Diameter 2.2 cm M-MODE LA Ao Ratio MM 1.5 AV Cusp Separation MM 1.2 cm DOPPLER AV Peak Velocity 143.0 cm/s LVOT Peak Velocity 89.0 cm/s AV Area Cont Eq vti 2.9 cm squared AV Area Cont Eq pk 2.2 cm squared MV Peak Velocity 93.0 cm/s MV Area PHT 4.6 cm squared Mitral E to A Ratio 1.3 TV Peak E Velocity 85.0 cm/s PV Peak Velocity 90.0 cm/s FINDINGS Left Ventricle Technically limited quality echocardiogram because of poor ultrasonic windows. Grossly LV systolic function appears to be mildly reduced. Regional wall motion abnormalities cannot be accurately assessed because of limited visualization. Right Ventricle Grossly normal Right Atrium Dilated Left Atrium Dilated Mitral Valve Mild mitral annular calcification. Mild mitral regurgitation. Aortic Valve Aortic valve is thickened. No significant stenosis seen. Tricuspid Valve Insufficient TR jet to calculate RVSP Pulmonic Valve Not well visualized Pericardium Grossly normal Aorta Normal in size IVC Not visualized CONCLUSIONS Technically limited quality echocardiogram because of poor ultrasonic windows. Grossly LV systolic function appears to be mildly reduced. Biatrial enlargement. Mild mitral regurgitation. For accurate assessment of LV systolic function and regional wall motion, recommend echo with contrast. Preston Bangura MD (Electronically Signed) Final Date: 29 January 2024 17:48 S
== END 2024-01-29 07:06 | disposition home or self-care (01) ==
LOC: CDL 07:06
PROVIDERS: PCP Nurse Practitioner; Visit Provider Internal Medicine Cardiovascular Disease
DX: R07.9 Chest pain, unspecified (principal); R06.02 Shortness of breath; I45.10 Unspecified right bundle-branch block; I35.8 Other nonrheumatic aortic valve disorders; I51.7 Cardiomegaly; R94.39 Abnormal result of other cardiovascular function study
CPT/HCPCS: 36415; 78452; 93017; 93306; 96374; A9500; J2785

== ENCOUNTER 2024-02-06 07:41 | Outpatient (CLI) | payer OTHER, SELFPAY ==
--- NOTE | 2024-02-06 07:46 | CT_ITS ---
WS: [id number] CT SINUSES TECHNIQUE: Noncontrast CT of the paranasal sinuses with coronal and sagittal reformatted images. CLINICAL INFORMATION: ANOSMIA/PARAGEUSIA COMPARISON: None. DLP: 392.[address] scans at [facility] use at least one of these dose optimization techniques: automated e xposure control; mA and/or kV adjustment per patient size (includes targeted exams where dose is matc hed to clinical indication); or iterative reconstruction. FINDINGS: Mild RIGHT to LEFT nasal septal deviation with a leftward directed spur. Nasal septal deviation measu res 3 to 4 mm. Paranasal sinuses are well aerated. Hypoplastic frontal sinuses. Mild mucosal thickeni ng in the ethmoid air cells. Sphenoid sinuses are well aerated. Mild mucosal thickening along the sph enoid sinus ostia. RIGHT maxillary sinus is well aerated. Small retention cyst LEFT maxillary sinus m easuring 8 mm. Mild mucosal thickening LEFT maxillary sinus. Opacification of the LEFT ostiomeatal un it with mucosal thickening. RIGHT ostiomeatal unit is patent. Mastoid air cells are well aerated. Vascular calcification. Normal posterior nasopharynx. Advanced degenerative changes at the C1-C2 articulation. Vascular calcification. CT/CT sinus wo con* [id number] IMPRESSION: 1. Mild RIGHT to LEFT nasal deviation with leftward directed spur. Septal joe ation measures 3 to 4 mm. 2. Opacification of the LEFT ostiomeatal unit with mucosal thickening. 3. Mucosal thickening LEFT maxillary sinus with a small retention cyst measuri ng 8 mm. 4. Mild mucosal thickening in the ethmoid air cells. Hypoplastic frontal sinus es. 5. Mastoid air cells are well aerated.
== END 2024-02-06 07:42 | disposition home or self-care (01) ==
PROVIDERS: PCP Nurse Practitioner; Visit Provider Otolaryngology
DX: J34.2 Deviated nasal septum (principal); J34.89 Other specified disorders of nose and nasal sinuses; J32.0 Chronic maxillary sinusitis; J34.1 Cyst and mucocele of nose and nasal sinus; Q30.8 Other congenital malformations of nose; R43.2 Parageusia; R43.0 Anosmia
CPT/HCPCS: 70486

== ENCOUNTER 2024-02-10 13:00 | Oncology outpatient (recurring) (ONCR) | payer OTHER, SELFPAY ==
--- NOTE | 2024-01-29 13:30 | USCV_ITS ---
Cristina Tan Age: 68 Gender: M : 1955 Exam Date: 01/29/2024 10:06 Ordering Phys: Kenyon Diaz MD ([email or web address]) Technologist: CT Exam Location: [facility] [place] Indication: cp BP: 147 / 72 HR: 79 Rhythm: Sinus Technical Quality: Adequate MEASUREMENTS (Male / Female) Normal Values 2D ECHO LVOT Diameter 2.1 cm LV Ejection Fraction MOD 4C 41.1 % LV Ejection Fraction MOD 2C 49.0 % LV Ejection Fraction 2C AL 47.9 % LA Diameter 4.7 cm LA Sys Volume AL 133.6 cm cubed LA Sys Volume Index AL 49.8 cm cubed/m squared Aorta at Sinotubular Diameter 2.2 cm M-MODE LA Ao Ratio MM 1.5 AV Cusp Separation MM 1.2 cm DOPPLER AV Peak Velocity 143.0 cm/s LVOT Peak Velocity 89.0 cm/s AV Area Cont Eq vti 2.9 cm squared AV Area Cont Eq pk 2.2 cm squared MV Peak Velocity 93.0 cm/s MV Area PHT 4.6 cm squared Mitral E to A Ratio 1.3 TV Peak E Velocity 85.0 cm/s PV Peak Velocity 90.0 cm/s FINDINGS Left Ventricle Technically limited quality echocardiogram because of poor ultrasonic windows. Grossly LV systolic function appears to be mildly reduced. Regional wall motion abnormalities cannot be accurately assessed because of limited visualization. Right Ventricle Grossly normal Right Atrium Dilated Left Atrium Dilated Mitral Valve Mild mitral annular calcification. Mild mitral regurgitation. Aortic Valve Aortic valve is thickened. No significant stenosis seen. Tricuspid Valve Insufficient TR jet to calculate RVSP Pulmonic Valve Not well visualized Pericardium Grossly normal Aorta Normal in size IVC Not visualized CONCLUSIONS Technically limited quality echocardiogram because of poor ultrasonic windows. Grossly LV systolic function appears to be mildly reduced. Biatrial enlargement. Mild mitral regurgitation. For accurate assessment of LV systolic function and regional wall motion, recommend echo with contrast. Preston Bangura MD (Electronically Signed) Final Date: 29 January 2024 17:48 S
[2024-02-10 12:53] LABS: Basophils # 0.1 10^3/uL (0.0-0.1); Basophils % 0.8 %; Eosinophils # 0.6 10^3/uL (0.0-0.8); Eosinophils % 4.5 %; Hematocrit 38.4 % (37-53); Lymphocytes % 31.8 %; Mean Corpuscular HGB Conc 32.6 g/dL (30-55); Mean Corpuscular Hemoglobin 29.6 pg (27-33); Mean Corpuscular Volume 90.8 fl (82-101); Mean Platelet Volume 9.2 fL (7.4-10.4); Monocytes # 1.2 10^3/uL (0.2-0.9); Monocytes % 9.3 %; Neutrophils # 6.63 10^3/uL (1.8-7.7); Nucleated Red Blood Cells % 0 %; Platelet Count 357 10^3/cmm (157-399); Red Blood Count 4.23 10^6/uL (3.85-5.65); Red Cell Distribution Width 13.6 % (12.1-15.1)
[2024-02-10 13:25] LABS: Alanine Aminotransferase 11 U/L (0-41); Albumin Level 3.8 g/dL (3.5-5.2); Alkaline Phosphatase 123 U/L (40-130); Anion Gap 16.7 (5-19); Aspartate Amino Transferase 15 U/L (0-40); Blood Urea Nitrogen 13 mg/dL (8-23); Calcium 8.7 mg/dL (8.5-10.5); Carbon Dioxide 24 mmol/L (22-29); Chloride 101 mmol/L (98-107); Creatinine Clr Calc Pharmacy 130.0704; Globulin 3.4 g/dL (1.3-4.6); Glomerular Filtration Rate 112.8 mL/min (90-130); Glucose 273 mg/dL (65-115); Osmolality Calculated 296 mOsm/kg (285-295); Potassium 3.7 mmol/L (3.5-5.1); Sodium 138 mmol/L (136-145); Testosterone Total 18.3 ng/dL (193-740); Total Bilirubin 0.4 mg/dL (0.15-1.2); Total Protein 7.2 g/dL (6.6-8.7)
[2024-02-10 13:28] LABS: Prostate Specific Antigen < 0.014 ng/mL (0-4)
[2024-02-10] MEDS: denosumab 120 mg SDV SUBCUT (14:13)
[2024-02-10] MEDS: leuprolide 22.5 mg Kit IM (14:15)
== END 2024-02-18 23:59 | disposition home or self-care (01) ==
PROVIDERS: Internal Medicine Medical Oncology; PCP Nurse Practitioner; Visit Provider Internal Medicine Cardiovascular Disease
DX: Z53.9 Procedure and treatment not carried out, unspecified reason; C61 Malignant neoplasm of prostate; C79.51 Secondary malignant neoplasm of bone; R97.20 Elevated prostate specific antigen [PSA]; Z51.11 Encounter for antineoplastic chemotherapy; Z79.899 Other long term (current) drug therapy; F17.210 Nicotine dependence, cigarettes, uncomplicated
CPT/HCPCS: 36591; 80053; 84153; 84403; 85025; 93306; 96372; 96402; 99214; J0897; J9217

== ENCOUNTER → 2024-02-18 10:32 | Outpatient (BNVA) | payer OTHER, SELFPAY | PROVIDERS: PCP Nurse Practitioner; Visit Provider Nurse Practitioner Family | DX: L60.3 Nail dystrophy (principal); S50.911A Unspecified superficial injury of right forearm, initial encounter; S50.912A Unspecified superficial injury of left forearm, initial encounter; X58.XXXA Exposure to other specified factors, initial encounter; L28.1 Prurigo nodularis; L81.4 Other melanin hyperpigmentation; L57.8 Other skin changes due to chronic exposure to nonionizing radiation; D22.61 Melanocytic nevi of right upper limb, including shoulder | CPT/HCPCS: 99214 ==

== ENCOUNTER → 2024-02-25 09:40 | Outpatient (BNVA) | payer OTHER, SELFPAY | PROVIDERS: PCP Nurse Practitioner; Visit Provider Internal Medicine | DX: E11.51 Type 2 diabetes mellitus with diabetic peripheral angiopathy without gangrene (principal); I10 Essential (primary) hypertension; R06.02 Shortness of breath; R94.31 Abnormal electrocardiogram [ECG] [EKG]; F17.210 Nicotine dependence, cigarettes, uncomplicated; R94.39 Abnormal result of other cardiovascular function study; Z79.84 Long term (current) use of oral hypoglycemic drugs | CPT/HCPCS: 99214 ==

== ENCOUNTER 2024-03-09 12:13 | Oncology outpatient (recurring) (ONCR) | payer OTHER, SELFPAY ==
--- NOTE | 2024-03-09 12:45 | USR_ITS ---
PROCEDURE INFORMATION: Exam: US Duplex Bilateral Lower Extremity Arteries Exam date and time: 03/09/2024 12:50 PM Age: 68 years old Clinical indication: Pain; Leg, lower; Bilateral; Prior surgery; Surgery date: 6+ months; Surgery type: PT states he has a right fem pop bypass. Not easilt differentiated from [place]. Tds; Additional info: Bilat leg pain TECHNIQUE: Imaging protocol: Real-time ultrasound scan of the arteries of the bilateral lower extremities with 2-D bernardo scale, color Doppler flow and spectral waveform analysis. Images documented and saved. COMPARISON: CT hip RT wo con* [id number] 02/06/2021 5:34 PM FINDINGS: Right common femoral artery: No occlusion or significant stenosis. Monophasic waveform. Right superficial femoral artery: No occlusion. Elevated PSV in the mid superficial femoral artery may indicate moderate stenosis Monophasic waveform. Right popliteal artery: No occlusion or significant stenosis. Monophasic waveform. Right calf/foot arteries: No occlusion or significant stenosis in the visualized arteries. Monophasic waveforms. Dorsalis pedis artery is patent. Left common femoral artery: No occlusion or significant stenosis. Normal waveform. Left superficial femoral artery: No occlusion. Elevated PSV in the mid superficial femoral artery may indicate moderate stenosis. Normal waveform. Left popliteal artery: No occlusion or significant stenosis. Normal waveform. Left calf/foot arteries: No occlusion or significant stenosis in the visualized arteries. Normal waveforms. Dorsalis pedis artery is patent. Other findings: Low PSV measurements in the right common femoral and proximal superficial femoral artery may be due to inflow disease not identified on this study. US/CV arterial duplex [facility] [id number] IMPRESSION: 1. No occluded vessels . Moderate stenosis in both mid superficial femoral arteries. 2. Monophasic waveforms in the right lower extremity arteries may be due to inflow disease. 3. The anterior tibial and peroneal arteries were not evaluated. 4. Consider further evaluation with DSA, CTA, or MRA if clinically warranted.
[2024-03-09 13:54] LABS: Basophils # 0.1 10^3/uL (0.0-0.1); Basophils % 0.8 %; Eosinophils # 0.7 10^3/uL (0.0-0.8); Eosinophils % 6.5 %; Hematocrit 38.3 % (37-53); Lymphocytes # 3.7 10^3/uL (0.8-4.8); Lymphocytes % 34.9 %; Mean Corpuscular HGB Conc 32.9 g/dL (30-55); Mean Corpuscular Hemoglobin 29.8 pg (27-33); Mean Corpuscular Volume 90.5 fl (82-101); Mean Platelet Volume 9.2 fL (7.4-10.4); Monocytes % 9.9 %; Neutrophils # 5.04 10^3/uL (1.8-7.7); Neutrophils % 47.7 %; Nucleated Red Blood Cells % 0 %; Platelet Count 308 10^3/cmm (157-399); Red Blood Count 4.23 10^6/uL (3.85-5.65); Red Cell Distribution Width 13.5 % (12.1-15.1); White Blood Count 10.55 10^3/uL (3.29-11.43)
[2024-03-09 14:23] LABS: Alanine Aminotransferase 11 U/L (0-41); Albumin Level 3.7 g/dL (3.5-5.2); Alkaline Phosphatase 90 U/L (40-130); Anion Gap 14.6 (5-19); Aspartate Amino Transferase 18 U/L (0-40); Blood Urea Nitrogen 15 mg/dL (8-23); Carbon Dioxide 26 mmol/L (22-29); Chloride 101 mmol/L (98-107); Creatinine Clr Calc Pharmacy 132.1681; Glomerular Filtration Rate 112.8 mL/min (90-130); Glucose 180 mg/dL (65-115); Osmolality Calculated 291 mOsm/kg (285-295); Potassium 3.6 mmol/L (3.5-5.1); Sodium 138 mmol/L (136-145); Total Bilirubin 0.4 mg/dL (0.15-1.2); Total Protein 6.7 g/dL (6.6-8.7)
[2024-03-09 14:26] LABS: Prostate Specific Antigen < 0.014 ng/mL (0-4)
== END 2024-03-20 23:59 | disposition home or self-care (01) ==
PROVIDERS: Internal Medicine Medical Oncology; PCP Nurse Practitioner; Visit Provider Internal Medicine
DX: C61 Malignant neoplasm of prostate (principal); C79.51 Secondary malignant neoplasm of bone; R97.20 Elevated prostate specific antigen [PSA]; I73.9 Peripheral vascular disease, unspecified; I25.10 Atherosclerotic heart disease of native coronary artery without angina pectoris; F17.210 Nicotine dependence, cigarettes, uncomplicated; Z79.899 Other long term (current) drug therapy
CPT/HCPCS: 36591; 80053; 84153; 85025; 93925; 99214

== ENCOUNTER 2024-03-11 08:49 | Outpatient (CLI) | payer OTHER, SELFPAY ==
[2024-03-11] VITALS (30 sets, daily range): BP systolic 158–185; BP diastolic 76–91; PULSE 62–95; RESP 16–33; TEMP 36.7–37; O2SAT 91–97; BMI 43.0; BMI 44.2
[2024-03-11] MEDS: diphenhydrAMINE 50 mg Capsule PO (09:06)
--- NOTE | 2024-03-11 10:00 | XACV_ITS ---
Exam Room: Ht: 180 cm Wt: 140 kg BSA: 2.71 m2 Gender: Male : 1955 Any Known Allergies: Other Exam Priority: Routine Procedure(s): Procedure Description: Diagnostic procedure Procedure Description: PCI procedure Procedure Description: Left Heart Catheterization Procedure Description: Left ventriculography Procedure Description: Drug Eluting Coronary Stent Procedure Description: PTCA Procedure Description: Miscellaneous Procedure Description: ACT Procedure Description: Coronary Angiography Procedure Description: Pressure Wire Diagnostic Cath Status: Elective Diagnostic Findings * INDICATION: Worsening angina/abnormal stress test. * Left main artery is patent. LAD has mild to moderate luminal irregularities. Left circumflex artery has mild luminal irregularities. OM 2 is a large sized vessel and has a 70% stenosis in proximal segment. RCA has no significant disease. PDA has diffuse disease. * Second Obtuse Marginal Branch Segment: obstructive 70% stenosis, DEBORA: 3 flow. * Coronary angiography shows right dominance. PCI Status: Elective Interventional Findings * Procedure detail: We engaged left main artery with XB 3.5 guide catheter. After normalization, iFR wire was advanced into distal OM 2 branch. iFR value of 0.76 was obtained that was significantly abnormal. We then proceeded with predilation of OM stenosis with 2.5 x 12 mm semicompliant balloon. This was followed by placement of 3.0 x 18 mm resolute Oscar drug-eluting stent. We postdilated the stent with 3.25 x 8 mm NC balloon. At this time final angiogram was performed that showed excellent stent expansion, no residual stenosis and DEBORA-3 flow. Guidewire and guide catheter were removed. Patient left the Information Tech in a stable condition.. * Second Obtuse Marginal Branch Segment: 70% stenosis treated with a AB TREK 2.50X12 RX BALLOON, MDT R OSCAR 3.0X18 MELISSA, and MDT NC EUPHORA RX [id number] BALLOON. 0% residual stenosis, DEBORA: 3 flow. Conclusions 1. Severe OM 2 Stenosis. Confirmed with iFR value of 0.76. S/P successful revascularization with 1 stent. 2. Left main artery is patent. LAD has mild to moderate luminal irregularities. Left circumflex artery has mild luminal irregularities. OM 2 is a large sized vessel and has a 70% stenosis in proximal segment. RCA has no significant disease. PDA has diffuse disease. 3. Normal left ventricular systolic function. Ejection fraction of 50%. 4. Second Obtuse Marginal Branch Segment was treated with a Balloon, Drug Eluting Stent, and Balloon. Recommendations * Dual antiplatelet therapy with aspirin and plavix. * High intensity statin therapy. * Outpatient cardiology follow up in 2 weeks. Interventional RX Recommendation: PCI w/o planned CABG Diagnostic RX Recommendation: PCI w/o planned CABG Anticoagulation: Heparin Ventriculography Ejection Fraction: 50.0 % Pressures Phase:Rest AO : 154 / 83 ( 111 ) @ 11:29:00 AM 136 / 56 ( 91 ) @ 11:31:00 AM 149 / 81 ( 111 ) @ 11:32:00 AM 189 / 82 ( 124 ) @ 11:41:00 AM 189 / 75 ( 122 ) @ 11:41:00 AM 146 / 69 ( 97 ) @ 11:46:00 AM 165 / 88 ( 120 ) @ 11:59:00 AM LV : 196 / 10 / 24 @ 11:40:00 AM 182 / @ 11:41:00 AM 187 @ 11:41:00 AM Valves Phase:DefaultPhase AV : 0.0 @ 12:12:05 PM AV Mean Gradient: 0.0 @ 12:12:05 PM Clinical Evaluation EBL: 5mL-10mL Procedural Details Procedure Consent Obtained. Current Diagnosis : Chest Pain. Pre-Procedure Time Out. Identified patient by full name and date of as verbalized by the patient/guarantor. Does the consent match the physician's order: Yes. Accurate & Complete Informed Consent: Yes. Inpatient/Outpatient History & Physical on Chart: Yes. If H&P is completed, is and addenduem needed: No; If yes, is the addendum complete: N/A. Visualize and Verify Site with Patient/Guarantor: N/A. Relevant Radiology Images available: Yes. Pre-op teaching completed and patient verbalized understanding. The risks, benefits, and alternatives of sedation and/or procedure were discussed by physician. The patient agrees to continue. Procedure started. [facility] Clinical Fraility Score: 3: Managing Well. Information Tech Indications: Other. Chest Pain Symptom Assessment: Typical Angina Symptoms. Correct patient, site and procedure confirmed by cath team. Current diagnosis: Chest Pain. PERRLA. Strong, equal hand senior oracle soa developer bilaterally. Lungs clear x 5 lobes. IV Fluids: 0.9% NaCl at KVO. 0 mL infused prior to home performance laborer. Pre Procedural Pulses: bilateral dorsalis pedis was Doppled. Pre Procedural Pulses: bilateral posterior tibial was Doppled. Pre Procedural Pulses: bilateral radial was 2+. Oxygen started at 2liters/min via nasal canula. left groin was prepped with chloroprep then draped in the usual sterile fashion. right radial was prepped with chloroprep then draped in the usual sterile fashion. Baseline sample Acquired. HR: 65 BPM. Physician arrived. IV Site on Arrival: Right upper chest port a cath. Physician scrubbed in. Immediate Pre-Procedure Time Out. Correct Patient: Yes; Correct Procedure: Yes; Correct Site: Yes; Correct Patient Position: Yes; Correct Supplies: Yes; Dried Flammable Prep: Yes; Blood Products Available: N/A;. Lidocaine 1% infiltrated to the right radial. Arterial access obtained. A 5 korean TIG catheter in over wire. Multiple views taken of left coronary artery. Catheter redirected to the RCA. Multiple views taken of right coronary artery. Catheter removed over the exchange wire. A 5 korean Angled Pig catheter in over wire. EDP Sample taken: LV 196/10,24; HR: 72 BPM; SpO2: 95%. LV gram performed in BAILON @ 10 mL/second for a total of 30 mL. EDP Sample taken: LV 182/9,22; HR: 68 BPM; SpO2: 95%. Pullback taken: LV 187/10,26; AO 189/82(124); Mean: 0mmHg, Peak to Peak: 0mmHg, SEP: 15sec/min; HR: 66 BPM; SpO2: 95%. Catheter removed over the exchange wire. 6 korean XB 3.5 guide catheter was inserted over the wire. IFR guidewire was advanced through the guide catheter to lesion in the OM. IFR Results: 0.76. Runthrough guidewire was advanced through the guide catheter to lesion in the OM. IFR wire out. Inflation number : 1 A AB TREK 2.50X12 RX BALLOON was prepped and advanced across the 2nd Ob Delores , then inflated to 12 CHRISTIAN for 0:10 seconds. Inflation number: 2 The AB TREK 2.50X12 RX BALLOON was reinflated across the 2nd Ob Delores, to 12 CHRISTIAN for 0:07 seconds. Balloon out. Inflation Number : 3 A MDT R OSCAR 3.0X18 MELISSA -Lot Number# _[id number] EXP: 09/09/2026 was prepped and advanced across the 2nd Ob Delores. The stent was deployed at 12 CHRISTIAN for 0:17 seconds. Stent balloon out over wire. Inflation number : 4 A MDT NC EUPHORA RX [id number] BALLOON was prepped and advanced across the 2nd Ob Delores , then inflated to 14 CHRISTIAN for 0:13 seconds. Inflation number: 5 The MDT NC EUPHORA RX [id number] BALLOON was reinflated across the 2nd Ob Delores, to 14 CHRISTIAN for 0:11 seconds. Balloon out. Wire out. ACT drawn. Results 331 seconds. Therapeutic limits - pre-heparin administration 90-150 seconds and monitoring heparin during a vascular procedure >250 seconds. Guide catheter out. Post Procedure: Pulses reassessed and unchanged. PERRLA. Strong, equal hand senior oracle soa developer bilaterally. No VTE prophylaxis required. Medication's Wasted: Other = Fentanyl 25 mcg. Medication's Wasted: Nitro = 49.4 mg. Total IV fluids: 75 mL. Vital chart was stopped. A TR Band was successful obtaining hemostatsis at the Right Radial artery insertion site. Post-op diagnosis: Stent to OM2. Complications: None. Estimated blood loss: 5mL-10mL. Responsiveness - Normal response to verbal stimuli; alert and oriented, PERRLA. Airway - Unaffected, no intervention required; spontaneous ventilation. Circulation: W/N/L, pulses unchanged. Nausea/Vomiting: No. Procedure completed. Patient transferred by wheelchair to 1st floor. Access Site Site: Right Radial artery Sheath Size: 6 Fr Hemostasis Method: TR Band Hemostasis Success: Successful Procedure Medications Start: 11:21 AM Stop: 11: AM Medication: Versed Amount: 1 mg Route: I.V. Start: 11:21 AM Stop: 11:21 AM Medication: Fentanyl Amount: 50 mcg Route: I.V. Start: 11:25 AM Stop: 11:25 AM Medication: Fentanyl Amount: 25 mcg Route: I.V. Start: 11:27 AM Stop: 11:27 AM Medication: Nitrogylcerin Amount: 200 mcg Route: I.A. Start: 11:28 AM Stop: 11:28 AM Medication: Heparin Amount: 5000 units Route: I.V. Start: 11:33 AM Stop: 11:33 AM Medication: Versed Amount: 1 mg Route: I.V. Start: 11:37 AM Stop: :37 AM Medication: Nitrogylcerin Amount: 200 mcg Route: I.A. Start: 11:43 AM Stop: : AM Medication: Versed Amount: 1 mg Route: I.V. Start: : AM Stop: : AM Medication: Nitrogylcerin Amount: 200 mcg Route: I.A. Start: 11:46 AM Stop: 11:46 AM Medication: Heparin Amount: 7000 units Route: I.V. Start: 11:52 AM Stop: 11:52 AM Medication: Heparin Amount: 1000 units Route: I.V. Start: 12:05 PM Stop: 12:05 PM Medication: Plavix Amount: 600 mg Route: P.O. I, the attending physician, have reviewed and verified all procedure medications. Yes, all medications given per verbal order History/Risk Factors Hypertension: Yes Dyslipidemia: No Peripheral Arterial Disease (PAD): Yes Myocardial Infarction (OR): No Obesity: Yes Renal Disease: No Tobacco Use: Current/Recent(w/in 1 year) Prior Interventions PCI: No CABG: No Valve Surgery: No Report Signatures Finalized by Preston Bangura MD on 03/15/2024 12:28 PM
--- NOTE | 2024-03-11 10:51 | SUR.PREOP ---
Right upper chest portacath accessed using sterile technique. Patient tolerated well.
--- NOTE | 2024-03-11 11:18 | W.PM.OPSUD ---
Surgery/Procedure H&P Update DATE OF PROCEDURE: March 11, 2024 DATE H&P PERFORMED: 02/25/24 H&P UPDATE INFORMATION: I have reviewed H&P completed within last 30 days, I have examined patient prior to procedure and No changes to prior documentation PREOP DIAGNOSIS: Worsening angina/abnormal stress test PRIMARY INDICATION FOR PROCEDURE: Worsening angina/abnormal stress test PLANNED PROCEDURE: Operation Date: 03/11/24 10:00 Proposed Procedures p Cardiac Catheterization(Left) - Preston Bangura M.D Possible percutaneous coronary intervention PATIENT REASSESSED PRIOR TO SEDATION, WITH NO CHANGE NOTED: Yes PHYSICAL EXAM: alert, oriented x 3, clear to auscultation bilaterally and regular rate & rhythm AIRWAY EVAL/ANESTHESIA PLAN: normal airway, ASA III, Local Anesthesia, Risks, benefits & alternatives of sedation and/or procedure discussed and Patient agrees to continue as planned ADDITIONAL INFORMATION: Moderate sedation
--- NOTE | 2024-03-11 12:07 | PM.PROC ---
Procedure Note: Date of procedure: 03/11/24 Pre-procedure diagnosis: Worsening angina/ abnormal stress test Post-procedure diagnosis: other (Severe OM 2 stenosis s/p PCI with 1 stent ) Procedure: Left heart cath with PCI: Left main artery is patent. LAD has mild to moderate luminal irregularities. OM 2 is a large sized vessel and has 70% stenosis. iFR was performed that was found to be significantly abnormal with a value of 0.76. Underwent successful revascularization with 1 stent. RCA has mild to moderate diffuse luminal irregularities. Aspirin and plavix for atleast 6 months to 1 year High intensity statin therapy Performing Provider: Preston Bangura Estimated blood loss (mL): 10 Complications: None Condition: stable Disposition: floor Coding Level of Care Code Acute Code for brenda Fwjustyna
[2024-03-11] MEDS: sodium chloride 0.9% 1,000 ML 100 ML IV ×2 (13:20→20:46)
--- NOTE | 2024-03-11 14:46 | PC.NURSE ---
received from cardiac laborer [place] at 1320 via bed.report received.pt is alert and awake and oriented x 4.denies pain at present.sr on monitor.right wrist tr band is on and inflated.no hematoma noted.right hand is warm to touch and with brisk capillary refill.palpable radial pulse noted distal to tr band.pt instructed in activity restrictions s/p radial artery procedure...and instructed to notify staff for any bleeding,pain,sob,numbness...or for any concerns at all.pt verb understanding of instructions
[2024-03-11 16:53] LABS: Glucose Point of Care 237 mg/dL (70-110)
[2024-03-11] MEDS: insulin lispro 100 unit/1 mL SUBCUT (17:14)
--- NOTE | 2024-03-11 17:38 | PC.NURSE ---
tr band slowly deflated and eventually removed at 1700.no hematoma noted.right hand remains warm to touch and with brisk capillary refill.palpable radial pulse noted.site dressed with 2x2 gauze and secured with biocclusive drsg.pt instructed in activity restrictions s/p tr band removal...and instructed to notify staff for any bleeding,pain,sob,numbness...or for any concerns at all.pt verb understanding of instructions
--- NOTE | 2024-03-11 19:53 | ECG_ITS ---
[employer] Test Date: 2024-03-11 Pat Name: Cristina Tan Department: Room: 112 Gender: Male Head Of Physics: : 1955 Requested By: Preston Bangura Order Number: [id number] Jw MD: Preston Bangura M.D. Measurements Intervals [place] Rate: 63 P: 72 DE: 150 QRS: 96 QRSD: 162 T: 72 QT: 451 QTc: 465 Interpretive Statements SINUS RHYTHM RIGHT BUNDLE BRANCH BLOCK [120+ ms QRS DURATION, UPRIGHT V1, 40+ ms S IN I/aVL/V4/V5/V6] MODERATE T-WAVE ABNORMALITY, CONSIDER LATERAL ISCHEMIA [-0.1+ mV T-WAVE IN I/aVL/V5/V6] Compared to ECG 12/24/2023 13:26:33 T-wave abnormality now present Possible ischemia now present Myocardial infarct finding no longer present Electronically Signed On 03-14-2024 23:31:55 SOLAR ENERGY SALES SPECIALIST by Preston Bangura M.D. [email or web address]
[2024-03-11 20:40] LABS: Glucose Point of Care 132 mg/dL (70-110)
[2024-03-11] MEDS: atorvastatin 40 mg Tablet 80 MG PO (20:45)
[2024-03-12 00:43] VITALS: BP 153/62; PULSE 54; RESP 12; O2SAT 93
[2024-03-12 03:49] LABS: Basophils # 0.1 10^3/uL (0.0-0.1); Basophils % 0.7 %; Eosinophils # 0.6 10^3/uL (0.0-0.8); Eosinophils % 6.4 %; Hematocrit 35.1 % (37-53); Lymphocytes # 3.7 10^3/uL (0.8-4.8); Lymphocytes % 37.5 %; Mean Corpuscular HGB Conc 32.8 g/dL (30-55); Mean Corpuscular Hemoglobin 29.8 pg (27-33); Mean Corpuscular Volume 90.9 fl (82-101); Mean Platelet Volume 9.3 fL (7.4-10.4); Monocytes # 1.1 10^3/uL (0.2-0.9); Monocytes % 11.4 %; Neutrophils # 4.34 10^3/uL (1.8-7.7); Neutrophils % 43.6 %; Nucleated Red Blood Cells % 0 %; Platelet Count 261 10^3/cmm (157-399); Red Blood Count 3.86 10^6/uL (3.85-5.65); Red Cell Distribution Width 13.4 % (12.1-15.1); White Blood Count 9.95 10^3/uL (3.29-11.43)
[2024-03-12 04:08] LABS: Anion Gap 13.8 (5-19); Blood Urea Nitrogen 15 mg/dL (8-23); Calcium 8.6 mg/dL (8.5-10.5); Carbon Dioxide 27 mmol/L (22-29); Chloride 103 mmol/L (98-107); Creatinine Clr Calc Pharmacy 131.9641; Glomerular Filtration Rate 96.7 mL/min (90-130); Glucose 205 mg/dL (65-115); Osmolality Calculated 297 mOsm/kg (285-295); Potassium 3.8 mmol/L (3.5-5.1); Sodium 140 mmol/L (136-145)
[2024-03-12] MEDS: hyDRALAzine 20 mg/mL INJ 1 mL 10 MG IVP (05:07)
[2024-03-12 05:54] VITALS: PULSE 72
[2024-03-12 06:03] LABS: Glucose Point of Care 149 mg/dL (70-110)
[2024-03-12 07:37] VITALS: BP 167/80; PULSE 88; RESP 22; TEMP 36.5; O2SAT 96
[2024-03-12] MEDS: insulin lispro 100 unit/1 mL SUBCUT (08:34)
[2024-03-12 08:35] VITALS: BP 167/80
[2024-03-12] MEDS: aspirin 81 mg EC Tablet PO (08:35)
[2024-03-12] MEDS: losartan 50 mg Tablet 100 MG PO (08:35)
[2024-03-12] MEDS: clopidogrel 75 mg Tablet PO (08:36)
[2024-03-12] MEDS: metoprolol succinate ER (24 HR) 100 mg Tablet PO (08:36)
--- NOTE | 2024-03-12 09:21 | P.DS_ITS ---
<Statement entered by Preston Bangura M.D - 03/12/24 23:29> Patient was evaluated and cared for in conjunction with an advanced practice practitioner. I personally examined the patient and reviewed the chart and all pertinent data including imaging, telemetry, and laboratory results. I discussed the patient in detail with the advanced practice practitioner. Please see their note for complete progress note, results and agreed upon plan of care for the patient. Patient feeling better. Still short of breath. GENERAL: Patient is alert and oriented HEART: Regular S1 and S2 LUNGS: Clear to auscultation bilaterally EXTREMITIES: Lower extremities with 1+ edema Discharge Providers Date of Admission: 03/11/2024 Date of Discharge: March 12, 2024 Attending Provider at Admission: Dr Bangura Attending Provider at Discharge: Preston Bangura M.D Primary Care Provider: BANDAR Rodriguez Reason for Visit Reason for Visit: R94.39 Brief History: Patient is a 68-year-old male with history of right bundle branch block PAD metastatic prostate cancer COPD obesity, sleep apnea, diabetes. He had a abnormal stress test in January showing a medium sized area of delia-infarct ischemia in the apical and apical lateral territories. Given worsening symptoms of heartburn relieved by nitroglycerin he was brought to [facility] yesterday for coronary angiogram with possible PCI. Hospital Course Hospital Course On 03/11/2024 he underwent coronary angiogram showing significant stenosis of the second obtuse marginal found to be significant by IFR, treated with MELISSA x 1. The LAD and RCA contained mild to moderate luminal irregularity. He has not had any chest pain since the procedure and he is feeling well and ready to go home today. No complications with right radial cath site. He should remain on aspirin and Plavix for at least 6 months preferably 1 year, high intensity statin therapy as well. Previous echocardiogram in January showed mildly reduced EF, will switch losartan to Entresto 49/51 mg 1 tablet twice a day. Continue aspirin and metoprolol succinate 100 mg daily. Blood pressure has been elevated for several months. May require antihypertensive adjustment in clinic. Follow-up in cardiology clinic in 7 to 10 days with cardiology nurse practitioner. Physical Exam Const: COMMON NORMALS: no acute distress and patient oriented x3 GENERAL APPEARANCE: cooperative and comfortable ORIENTATION/CONSCIOUSNESS: Yes awake, Yes oriented to person, Yes oriented to place and Yes oriented to time Chest: COMMONS NORMALS: normal inspection of the chest and normal palpation of entire chest wall CHEST: Yes Symmetrical chest wall rise Resp: COMMON NORMALS: normal respiratory effort, No retractions, No use of accessory muscles and clear to auscultation bilaterally EFFORT & INSPECTION: Yes symmetric chest movement AUSCULTATION: clear to auscultation bilaterally Cardio: COMMON NORMALS: regular rate, regular rhythm, S1 normal heart sound present, S2 normal heart sound present, No gallops present (Cardio), No clicks present (Cardio), No murmurs present (Cardio) and No rub (Cardio) RATE: regular rate RHYTHM: regular rhythm HEART SOUNDS: S1 normal heart sound present and S2 normal heart sound present PERIPHERAL PULSES: radial pulses present Extremity: COMMON NORMALS: no pedal edema Neuro: COMMON NORMALS: patient oriented x3 and moves all extremities SENSORIUM/ORIENTATION: Yes oriented to person, Yes oriented to place and Yes oriented to time Discharge Data Studies Completed and Pending Pending at discharge Category Date Time Status [employer] [employer] request for service Routine Exams 03/11/24 10:00 Taken Laboratory Results WBC 9.95 10^3/uL (3.29-11.43) 03/12/24 03:34 RBC 3.86 10^6/uL (3.85-5.65) 03/12/24 03:34 Hgb 11.50 g/dL (11.27-16.99) 03/12/24 03:34 Hct 35.1 % (37-53) L 03/12/24 03:34 MCV 90.9 fl (82-101) 03/12/24 03:34 MCH 29.8 pg (27-33) 03/12/24 03:34 MCHC 32.8 g/dL (30-55) 03/12/24 03:34 RDW 13.4 % (12.1-15.1) 03/12/24 03:34 Plt Count 261 10^3/cmm (157-399) 03/12/24 03:34 MPV 9.3 fL (7.4-10.4) 03/12/24 03:34 Neut % (Auto) 43.6 % 03/12/24 03:34 Lymph % (Auto) 37.5 % 03/12/24 03:34 Woodson % (Auto) 11.4 % 03/12/24 03:34 Eos % (Auto) 6.4 % 03/12/24 03:34 Baso % (Auto) 0.7 % 03/12/24 03:34 Neut # (Auto) 4.34 10^3/uL (1.8-7.7) 03/12/24 03:34 Lymph # (Auto) 3.7 10^3/uL (0.8-4.8) 03/12/24 03:34 Woodson # (Auto) 1.1 10^3/uL (0.2-0.9) H 03/12/24 03:34 Eos # (Auto) 0.6 10^3/uL (0.0-0.8) 03/12/24 03:34 Baso # (Auto) 0.1 10^3/uL (0.0-0.1) 03/12/24 03:34 Nucleated RBC % (auto) 0 % 03/12/24 03:34 Nucleated RBCs # 0.0 /100WBC 03/12/24 03:34 Sodium 140 mmol/L (136-145) 03/12/24 03:34 Potassium 3.8 mmol/L (3.5-5.1) 03/12/24 03:34 Chloride 103 mmol/L (98-107) 03/12/24 03:34 Carbon Dioxide 27 mmol/L (22-29) 03/12/24 03:34 Anion Gap 13.8 (5-19) 03/12/24 03:34 BUN 15 mg/dL (8-23) 03/12/24 03:34 Creatinine 0.8 mg/dL (0.7-1.2) 03/12/24 03:34 GFR Calculation 96.7 mL/min (90-130) 03/12/24 03:34 Glucose 205 mg/dL (65-115) H 03/12/24 03:34 POC Glucose 149 mg/dL (70-110) H 03/12/24 06:00 Calculated Osmolality 297 mOsm/kg (285-295) H 03/12/24 03:34 Calcium 8.6 mg/dL (8.5-10.5) 03/12/24 03:34 Vitals Last Vital Signs Temp 97.7 F 03/12/24 07:37 Pulse 88 03/12/24 07:37 Resp 22 H 03/12/24 07:37 BP 167/80 03/12/24 08:35 Pulse Ox 96 03/12/24 07:37 O2 Del Method Room Air 03/12/24 07:37 Discharge Plan Discharge Patient Disposition: Home Prescriptions: New atorvastatin 40 mg Tablet 80 mg PO BEDTIME 90 Days 1RF clopidogrel 75 mg Tablet 75 mg PO DAILY 90 Days Qty: 90 3RF sacubitril-valsartan [Entresto] 24-26 mg Tablet 2 tab PO BID 0RF Continued sumatriptan succinate 100 mg tablet See Rx Instructions PO .COMPLEX PRN (Reason: Migraine Headache) Rx Instructions: take 1 tab at onset of headache; if no relief, may repeat 1 tab after at least 2 hrs; max = 2 tabs/24 hrs PO (DME) CPAP Device See Rx Instructions .Route Rx Instructions: As directed nitroglycerin 0.4 mg tablet, sublingual 0.4 mg sublingual Q5M PRN (Reason: chest pain) Qty: 25 2RF Rx Instructions: do not exceed 3 doses per episode pantoprazole 40 mg tablet,delayed release (DR/EC) 40 mg PO DAILY glipizide 5 mg tablet 5 mg PO BID Patient Comments: 10 mg total metoprolol succinate 100 mg tablet extended release 24 hr 100 mg PO DAILY lidocaine-prilocaine 2.5-2.5 % cream 1 applic topical .COMPLEX Qty: 30 2RF Rx Instructions: Apply quarter-size amount to port site 30 minutes prior to access; cover with cling wrap aspirin 81 mg Tablet,Delayed Release (Dr/Ec) 81 mg PO DAILY Hold Instructions: Resume on 07/18/21. Fish Oil 1 tab PO DAILY Held metformin 500 mg tablet extended release 24 hr 1,000 mg PO BID Hold Instructions: Resume on 03/15/24. celecoxib [Celebrex] 100 mg capsule 200 mg PO BID Qty: 20 0RF Hold Instructions: discuss with primary care provider meloxicam 15 mg tablet 15 mg PO DAILY Qty: 7 0RF Hold Instructions: discuss with primary care provider Discontinued losartan 100 mg tablet 100 mg PO DAILY Discharge Orders: Discharge Order (Routine); Ordered 03/12/24 Ordered By: Crissy Camarillo Referrals: Crissy Camarillo FNP [Nurse Practitioner] - 03/23/24 1:30 pm Diet: Advance as tolerated Activity: Resume usual activity Patient Instructions: Atorvastatin (By mouth), Clopidogrel (By mouth), Sacubitril/Valsartan (By mouth), Coronary Angioplasty (DC), Chest Pain Stoplight, Post Angiogram Home Care Instructions Activity Restrictions/Additional Instructions: No lifting over 5 pounds for the next 3 days. Discharge Date/Time: 03/12/24 11:04 Discharge Attestations Time Spent in Discharge Care*: less than 30 min Quality Metrics Clinical Quality Measures [ No reported AMI, CVA or VTE this stay] Coding Level of Care Code Acute Code for Chg Fwd
--- NOTE | 2024-03-12 10:28 | PC.NURSE ---
right upper chest port-a-cath flushed with 500 units heparin and then de-accessed using aseptic technique.bandaid applied.no s/sxs infection was noted.pt tolerated procedure well.
--- NOTE | 2024-03-12 10:54 | PC.NURSE ---
discharge instructions given and explained to pt and pt's .they verb understanding of instructions.discharged via w/c to exit at this time. to drive pt home.
[2024-03-12 11:25] VITALS: BP 167/80; PULSE 75; RESP 16; O2SAT 95
--- NOTE | 2024-03-12 11:51 | PC.SOCIAL ---
[facility] DC Paperwork faxed to [facility] @ this time.
== END 2024-03-12 11:04 | disposition home or self-care (01) ==
LOC: CCL 08:50 → CSU 13:48
PROVIDERS: PCP Nurse Practitioner; Visit Provider Internal Medicine
DX: I25.10 Atherosclerotic heart disease of native coronary artery without angina pectoris (principal); Z95.820 Peripheral vascular angioplasty status with implants and grafts; I10 Essential (primary) hypertension; E66.9 Obesity, unspecified; Z68.41 Body mass index [BMI] 40.0-44.9, adult; C61 Malignant neoplasm of prostate; J44.9 Chronic obstructive pulmonary disease, unspecified; G47.30 Sleep apnea, unspecified; E11.9 Type 2 diabetes mellitus without complications; I45.10 Unspecified right bundle-branch block
CPT/HCPCS: 36416; 36591; 80048; 82962; 85025; 85347; 93005; 93454; 93571; 96372; 96374; 99152; 99153; C1725; C1769; C1874; C1887; C1894; C9600; G0378; J0360; J1642; J1644; J1815; J2250; J3010; J3490; J7030; Q0163; Q9967

== ENCOUNTER → 2024-03-23 15:25 | Outpatient (BNVA) | payer OTHER, SELFPAY | PROVIDERS: PCP Nurse Practitioner; Visit Provider Nurse Practitioner Family | DX: I25.10 Atherosclerotic heart disease of native coronary artery without angina pectoris (principal); I11.0 Hypertensive heart disease with heart failure; I50.9 Heart failure, unspecified; F17.210 Nicotine dependence, cigarettes, uncomplicated | CPT/HCPCS: 99214 ==

== ENCOUNTER 2024-03-25 12:38 | Outpatient (CLI) | payer OTHER, SELFPAY ==
--- NOTE | 2024-03-25 13:15 | CTR_ITS ---
PROCEDURE INFORMATION: Exam: CTA Abdominal Aorta and Bilateral Lower Extremities (Run-off) With Contrast Exam date and time: 03/25/2024 1:39 PM Age: 68 years old Clinical indication: Abdominal pain and foot pain; Bilateral; Prior surgery; Surgery date: 6+ months; Surgery type: Femoral pop, port, gb, cardiac stents; Leg pain/ calf pain x 2 years. PT C/O severe epigastric pain and gas/ belching TECHNIQUE: Imaging protocol: Computed tomographic angiography of the of the abdominal aorta, pelvis and bilateral lower extremities with contrast. 3D rendering (Not supervised by radiologist): MIP and/or 3D reconstructed images were created by the technologist. Radiation optimization: All CT scans at this facility use at least one of these dose optimization techniques: automated exposure control; mA and/or kV adjustment per patient size (includes targeted exams where dose is matched to clinical indication); or iterative reconstruction. Contrast material: OMNI 350; Contrast volume: 250 ml; Contrast route: INTRAVENOUS (IV); COMPARISON: CT abdomen pelvis w con* [id number] 07/11/2023 3:10 PM RADIATION DOSE METRICS: Total DLP (mGy-cm): 1324.9 FINDINGS: Aorta: There is severe aortic atherosclerotic disease. There is no aortic dissection or aneurysm. There is mild distal aortic luminal narrowing with minimal luminal diameter of 13 mm above the bifurcation. Celiac trunk and mesenteric arteries: There is marked calcific and noncalcific plaque with 60-70% stenosis of the superior mesenteric artery. No significant stenosis in the celiac artery origin. Renal arteries: There is 50-60% stenosis at the origin of the right renal artery. There is less than 50% stenosis of the origin of the left renal artery. Right iliac arteries: Severe calcific plaque with less than 50% stenosis in the right common iliac artery. Severe calcific plaque with less than 50% stenosis in the right external iliac artery. Multifocal hemodynamically significant stenosis in the right internal iliac artery. Right femoral/popliteal arteries: Moderate plaque without stenosis in the right common femoral artery. No significant stenosis in the right profunda femoris artery origin. Moderate multifocal calcific plaque in the right superficial femoral artery with multifocal severe stenosis and near occlusion of the right mid to distal superficial femoral artery. Moderate calcific plaque with 50-60% stenosis in the right proximal popliteal artery. Right infrapopliteal arteries: Moderate right infrapopliteal arterial atherosclerotic disease with patent 3 vessel runoff to the right foot. Left iliac arteries: Multifocal hemodynamically significant stenosis in the left internal iliac artery. Severe calcific plaque with less than 50% stenosis in the left common iliac artery. Severe calcific plaque with less than 50% stenosis in the left external iliac artery. Left femoral/popliteal arteries: Moderate plaque with less than 50% stenosis in the left common femoral artery. Marked calcific plaque with near occlusion of the left profunda femoris artery origin. Moderate calcific plaque with multifocal 50-60% stenosis of the left superficial femoral artery, greater distally. Moderate calcific plaque with less than 50% stenosis of the left popliteal artery. Left infrapopliteal arteries: Moderate left infrapopliteal arterial atherosclerotic disease with patent 2 vessel (posterior tibial and peroneal artery) runoff to the left foot. Veins: The portal, splenic and superior mesenteric veins are patent. Liver: The liver is normal. Diaphragm: There is mild asymmetric elevation of the right hemidiaphragm. Gallbladder and biliary ducts: The gallbladder is absent. There is no intrahepatic or extrahepatic bile duct dilation. Pancreas: The pancreas is unremarkable. Spleen: The spleen is moderately enlarged. Adrenal glands: 18 mm intermediate density left adrenal nodule. Kidneys and ureters: The kidneys are unremarkable. No hydronephrosis or stones. No ureteral dilation. Stomach and bowel: The small bowel is nondilated. The colon is unremarkable. The stomach is decompressed. There is diffuse gastric mucosal hyperemia without ulceration or perigastric edema. Appendix: The appendix is absent the appendix is normal. Urinary bladder: The urinary bladder is unremarkable. Reproductive: The prostate and seminal vesicles are unremarkable. Intraperitoneal space: There is no free air or significant intraperitoneal free fluid. Lymph nodes: There is no lymphadenopathy in the retroperitoneum, mesentery, pelvis or inguinal regions. Bones/joints: There is mild degenerative disease in the lumbar spine. There are scattered sclerotic lumbar vertebral and pelvic sclerotic bone lesions. There is moderate degenerative disease in the lumbar spine. Soft tissues: There is a small fat containing right inguinal hernia. CT/CT angio abd aorta runof [id number] IMPRESSION: 1. Severe plaque without significant stenosis in the bilateral common and external iliac arteries. 2. Multifocal severe stenosis and near occlusion of the right distal superficial femoral artery. 3. 50-60% stenosis of the right popliteal artery. 4. Moderate right infrapopliteal arterial atherosclerotic disease with patent 3 vessel runoff to the right foot. 5. Multifocal 50-60% stenosis of the left superficial femoral artery. 6. Near occlusion of the left profunda femoris artery origin. 7. Moderate left infrapopliteal arterial atherosclerotic disease with patent 2 vessel runoff to the left foot. 8. 60-70% stenosis of the superior mesenteric artery. 9. 50-60% stenosis at the origin of the right renal artery. 10. 18 mm left adrenal nodule. Non-emergent adrenal CT is recommended. (Reference: Héctor) 11. Diffuse gastric mucosal hyperemia. Possible gastritis. 12. Stable sclerotic osseous metastases. REFERENCES: Héctor SALAS, et al. Management of Incidental Adrenal Masses: A White Paper of the ACR Incidental Findings Committee. J Am Juan C Radiol. 2017;14(8):4519-0312.
[2024-03-25] MEDS: iohexol 350 mg/mL 500 mL Btl (per mL) IV (13:58)
== END 2024-03-25 12:39 | disposition home or self-care (01) ==
PROVIDERS: PCP Nurse Practitioner; Visit Provider Internal Medicine
DX: M79.604 Pain in right leg (principal); M79.605 Pain in left leg; I70.8 Atherosclerosis of other arteries; I70.201 Unspecified atherosclerosis of native arteries of extremities, right leg; I70.202 Unspecified atherosclerosis of native arteries of extremities, left leg; K55.1 Chronic vascular disorders of intestine; I70.1 Atherosclerosis of renal artery; D35.02 Benign neoplasm of left adrenal gland; C79.51 Secondary malignant neoplasm of bone; Z98.890 Other specified postprocedural states; I70.0 Atherosclerosis of aorta; I35.0 Nonrheumatic aortic (valve) stenosis; R93.89 Abnormal findings on diagnostic imaging of other specified body structures; D73.89 Other diseases of spleen; M47.896 Other spondylosis, lumbar region; R93.7 Abnormal findings on diagnostic imaging of other parts of musculoskeletal system; K40.90 Unilateral inguinal hernia, without obstruction or gangrene, not specified as recurrent
CPT/HCPCS: 75635

== ENCOUNTER 2024-03-25 13:16 | Oncology outpatient (recurring) (ONCR) | payer OTHER, SELFPAY | END 2024-04-17 23:59 | disposition home or self-care (01) | PROVIDERS: PCP Nurse Practitioner; Visit Provider Internal Medicine | DX: C61 Malignant neoplasm of prostate (principal); C79.51 Secondary malignant neoplasm of bone; R97.20 Elevated prostate specific antigen [PSA]; I73.9 Peripheral vascular disease, unspecified; I25.10 Atherosclerotic heart disease of native coronary artery without angina pectoris; F17.210 Nicotine dependence, cigarettes, uncomplicated; Z79.899 Other long term (current) drug therapy | CPT/HCPCS: 96523 ==

== ENCOUNTER → 2024-04-27 14:05 | Outpatient (BNVA) | payer OTHER, SELFPAY | PROVIDERS: PCP Nurse Practitioner; Visit Provider Internal Medicine | DX: I10 Essential (primary) hypertension (principal); I25.10 Atherosclerotic heart disease of native coronary artery without angina pectoris; R94.31 Abnormal electrocardiogram [ECG] [EKG]; E11.51 Type 2 diabetes mellitus with diabetic peripheral angiopathy without gangrene; F17.210 Nicotine dependence, cigarettes, uncomplicated; Z79.84 Long term (current) use of oral hypoglycemic drugs | CPT/HCPCS: 99214 ==

== ENCOUNTER 2024-05-04 12:13 | Oncology outpatient (recurring) (ONCR) | payer OTHER, SELFPAY ==
[2024-05-04 12:57] LABS: Basophils # 0.1 10^3/uL (0.0-0.1); Basophils % 0.7 %; Eosinophils # 0.4 10^3/uL (0.0-0.8); Eosinophils % 3.8 %; Hematocrit 36.9 % (37-53); Lymphocytes # 3.8 10^3/uL (0.8-4.8); Lymphocytes % 35.3 %; Mean Corpuscular HGB Conc 34.1 g/dL (30-55); Mean Corpuscular Hemoglobin 30.9 pg (27-33); Mean Corpuscular Volume 90.4 fl (82-101); Mean Platelet Volume 9.5 fL (7.4-10.4); Monocytes % 8.9 %; Neutrophils # 5.52 10^3/uL (1.8-7.7); Neutrophils % 50.9 %; Nucleated Red Blood Cells % 0 %; Platelet Count 378 10^3/cmm (157-399); Red Blood Count 4.08 10^6/uL (3.85-5.65); Red Cell Distribution Width 14.2 % (12.1-15.1); White Blood Count 10.84 10^3/uL (3.29-11.43)
[2024-05-04 13:21] LABS: INR 0.94 (0.83-1.21); Prothrombin Time (Patient) 13.3 Seconds (12.0-15.1)
[2024-05-04 13:36] LABS: Alanine Aminotransferase 14 U/L (0-41); Albumin Level 3.6 g/dL (3.5-5.2); Alkaline Phosphatase 115 U/L (40-130); Aspartate Amino Transferase 18 U/L (0-40); Blood Urea Nitrogen 8 mg/dL (8-23); Calcium 8.2 mg/dL (8.5-10.5); Carbon Dioxide 25 mmol/L (22-29); Chloride 102 mmol/L (98-107); Globulin 3.5 g/dL (1.3-4.6); Glomerular Filtration Rate 134.4 mL/min (90-130); Glucose 129 mg/dL (65-115); Osmolality Calculated 290 mOsm/kg (285-295); Prostate Specific Antigen 0.168 ng/mL (0-4); Sodium 140 mmol/L (136-145); Testosterone Total 6.5 ng/dL (193-740); Total Bilirubin 0.4 mg/dL (0.15-1.2); Total Protein 7.1 g/dL (6.6-8.7)
[2024-05-04 13:37] LABS: Anion Gap 16.2 (5-19); Potassium 3.2 mmol/L (3.5-5.1)
[2024-05-04] MEDS: leuprolide 22.5 mg Kit IM (14:12)
[2024-05-04] MEDS: denosumab 120 mg SDV SUBCUT (14:12)
== END 2024-05-18 23:59 | disposition home or self-care (01) ==
PROVIDERS: Internal Medicine Medical Oncology; PCP Nurse Practitioner; Visit Provider Internal Medicine
DX: Z51.11 Encounter for antineoplastic chemotherapy (principal); C61 Malignant neoplasm of prostate; I25.10 Atherosclerotic heart disease of native coronary artery without angina pectoris; F17.210 Nicotine dependence, cigarettes, uncomplicated; Z79.818 Long term (current) use of other agents affecting estrogen receptors and estrogen levels; Z95.818 Presence of other cardiac implants and grafts; R97.20 Elevated prostate specific antigen [PSA]; Z79.899 Other long term (current) drug therapy
CPT/HCPCS: 36591; 80048; 80053; 84153; 84403; 85025; 85610; 96372; 96402; 99214; J0897; J9217

== ENCOUNTER 2024-05-11 05:48 | Outpatient (CLI) | payer OTHER, SELFPAY ==
[2024-05-11] VITALS (11 sets, daily range): BP systolic 138–166; BP diastolic 70–96; PULSE 69–119; RESP 16–32; TEMP 36.4–36.9; O2SAT 92–97; BMI 42.4
--- NOTE | 2024-05-11 06:20 | XACV_ITS ---
Exam Room: Ht: 180 cm Wt: 138 kg BSA: 2.70 m2 Gender: Male : 1955 Any Known Allergies: Other Exam Priority: Routine Procedure(s): Procedure Description: Diagnostic procedure Procedure Description: Peripheral Cath Diagnostic Procedure Procedure Description: Abdominal aortic angiography Procedure Description: Iliac arterial aortic angiography Procedure Description: Lower extremities' angiography Procedure Description: Peripheral vascular Intervention Procedure Description: PV Balloon Procedure Description: PV Stent Procedure Description: PV Atherectomy Procedure Description: Miscellaneous Procedure Description: ACT Lower Extremity Diagnostic Findings INDICATION: Severe lifestyle limiting claudication of right lower extremity. Right Mid-longitudinal Superficial Femoral Artery: Critical 95-99% stenosis. Right lower extremity findings: Right common iliac artery is patent. Right external iliac artery is patent with patent prior stent. Right internal iliac artery is patent. Right common femoral artery is patent. Mid to distal right SFA has critical 95-99% serial heavily calcified stenosis. Right profunda artery is patent. Right popliteal artery is patent. Below the knee has patent anterior tibial artery. TP trunk is totally occluded with reconstitution of the peroneal and posterior tibial artery via collaterals.. Left lower extremity findings: Left common iliac artery is patent. Left external iliac artery is patent. Left internal iliac artery is patent. Left common femoral artery is patent. SFA has moderate diffuse disease. Left profunda artery is patent. Left popliteal artery has moderate diffuse disease. Below the knee has two-vessel runoff with patent posterior tibial artery and peroneal artery however both vessels have diffuse disease. Anterior tibial artery is occluded.. Lower Extremity Interventional Findings Right Mid-longitudinal Superficial Femoral Artery: 90-99%% stenosis treated with [employer] Fun Waverly 35 PROFESSOR OF ENGLISH Catheter [id number] and Baroc Pub Omnilink Elite Vascular Balloon-Expanding Stent System 6.0mm x 59mm x 135cm. Procedure detail: After diagnostic images were obtained, we switched short left common femoral sheath to 45 cm Cook sheath. This went up and over to contralateral right external iliac artery. Using Glidewire, we crossed subtotally occluded SFA and put the wire distally. Through Zolpyer support catheter, Glidewire was switched to Borroer arthrectomy wire. Several runs of orbital arthrectomy were performed. This was followed by balloon angioplasty with 6.0 mm x 200 mm Waverly balloon. There was focal dissection noted in SFA. This was covered with 6.0 x 59 mm Omnilink balloon expandable stent. At this time final angiogram was performed that showed excellent flow in the right lower extremity. Patient left the Wildlife Biology Technician in a stable condition.. Conclusions Critical mid to distal right SFA stenosis s/p successful revascularization with orbital arthrectomy, balloon angioplasty and 1 stent placement. was treated with a Balloon, and Balloon. Right Mid-longitudinal Superficial Femoral Artery was treated with two Balloon. Recommendations Dual antiplatelet therapy with aspirin and plavix. High intensity statin therapy. Outpatient cardiology follow up in 2 weeks. Pressures Phase:Rest AO : 187 / 85 ( 121 ) @ 9:22:00 AM 171 / 79 ( 112 ) @ 9:32:00 AM 175 / 76 ( 114 ) @ 9:54:00 AM Hemodynamic Data Phase:Rest AO : 187.0 / 85.0 ( 121.0 ) @ 9:22:00 AM 171.0 / 79.0 ( 112.0 ) @ 9:32:00 AM 175.0 / 76.0 ( 114.0 ) @ 9:54:00 AM Clinical Evaluation EBL: 5mL-10mL Procedural Details Procedure Consent Obtained. Pre-Procedure Time Out. Identified patient by full name and date of as verbalized by the patient/guarantor. Does the consent match the physician's order: Yes. Accurate & Complete Informed Consent: Yes. Inpatient/Outpatient History & Physical on Chart: Yes. If H&P is completed, is and addenduem needed: No. Visualize and Verify Site with Patient/Guarantor: N/A. Relevant Radiology Images available: Yes. The risks, benefits, and alternatives of sedation and/or procedure were discussed by physician. The patient agrees to continue. Procedure started. Correct patient, site and procedure confirmed by cath team. Current diagnosis: PVD. PERRLA. Strong, equal hand jewel sawyer bilaterally. Lungs clear x 5 lobes. IV Site on Arrival: 20 gauge in the left anticubital. IV Fluids: 0.9% NaCl at KVO. 0 mL infused prior to warehouse laborer. Pre Procedural Pulses: bilateral dorsalis pedis was Doppled. Pre Procedural Pulses: right posterior tibial was Absent. Pre Procedural Pulses: left posterior tibial was Doppled. Pre Procedural Pulses: bilateral radial was 3+. Oxygen started at 2liters/min via nasal canula. left groin was prepped with chloroprep then draped in the usual sterile fashion. Physician notified. Baseline sample Acquired. HR: 74 BPM. Patient's family in CPRU room #4. Dr[address] Bangura will update at the completion of the procedure. Equipment: 6F - Femoral. Cardiac Cath Pack. ACIST Manifold Kit Model BT 2000. Heparinized Saline (2 units/mL), 1000 mL bag. Kit, Micropuncture. Physician arrived. Physician scrubbed in. Immediate Pre-Procedure Time Out. Correct Patient: Yes; Correct Procedure: Yes; Correct Site: Yes; Correct Patient Position: Yes; Correct Supplies: Yes; Dried Flammable Prep: Yes; Blood Products Available: N/A;. Lidocaine 1% infiltrated to the left groin. Arterial access obtained with micropuncture set using ultrasound guidance. Lidocaine 1% infiltrated to the left groin. A 5Fr UF catheter in over the standard J wire. Standard J wire out, 0.035 x 260cm stiff angled glidewire in through the UF catheter. Glidewire out. Pigtail postioned above the bifurcation of the iliacs. Aortagram performed @ 10 mL/sec for a total of 30 mL. Glidewire in. UF catheter out over the glidewire. Sheath upsized to a 6 Fr. Right external iliac selected and arteriogram with runoff performed @ 10 mL/sec for a total of 30 mL. Right external iliac selected and arteriogram with runoff performed @ 10 mL/sec for a total of 30 mL in DSA. Seeker Support catheter in over the glidewire. Glidewire out. Hand injection performed through the seeker support catheter. 0.014 x 335cm Viperwire in through the seeker support catheter. Viperwire out. 0.014 x 300cm Runthrough guidewire in. Runthrough wire out. Side port of sheath attached to Normal Saline flush at KVO to maintain patency. Viperwire in and advanced distal to the lesion in the right SFA. Seeker support catheter out over the Viperwire. 1.5mm x 145cm Diamondbacl 360 Gen2 Peripheral Orbital Atherectomy system in over the Viperwire and advanced to the lesion in the right SFA. Orbital atherectomy of the right SFA performed. Orbital atherectomy of the right SFA performed. Orbital atherectomy of the right SFA performed. Orbital atherectomy of the right SFA performed. Orbital atherectomy system out over the Viperwire. Seeker support catheter in over the Viperwire. Viperwire out. Glidewire in through the seeker support catheter. Seeker support catheter out. Inflation number : 1 A AB Waverly 35 PROFESSOR OF ENGLISH Catheter [id number] was prepped and advanced across the Superficial Femoral, Right , then inflated to 6 CHRISTIAN for 1:36 seconds. Inflation number: 2 The AB Waverly 35 PROFESSOR OF ENGLISH Catheter [id number] was reinflated across the Superficial Femoral, Right, to 6 CHRISTIAN for 1:23 seconds. Balloon out over the glidewire. Results checked. Arteriogram with runoff performed @ 10 mL/sec for a total of 30 mL below the right knee in DSA. Inflation number : 3 A Baroc Pub Omnilink Elite Vascular Balloon-Expanding Stent System 6.0mm x 59mm x 135cm was prepped and advanced across the Superficial Femoral, Right , then inflated to 11 CHRISTIAN for 1:31 seconds. Lot #[id number]. Exp. . Stent balloon out over wire. Arteriogram with runoff performed @ 10 mL/sec for a total of 30 mL of the right SFA. Sheath upsized to a 6 Fr. A 5Fr UF catheter in over the wire. Pigtail postioned above the bifurcation of the iliacs. Aortagram performed @ 10 mL/sec for a total of 30 mL in DSA. Interventional Cath Status : Elective. ACT drawn. Results 230 seconds. Therapeutic limits - pre-heparin administration 90-150 seconds and monitoring heparin during a vascular procedure >250 seconds. UF catheter removed over the standard J wire. Sheath injected in Left common femoral artery and runoff performed. Dr. Bangura scrubbed out. A Suture was successful obtaining hemostatsis at the Left Femoral artery insertion site. Sheath(s) sutured into position with 2-0 silk and sterile 4x4's and Op-site applied over the site. No oozing or signs and symptoms of hematoma noted. Arterial sheath flushed and connected to tranducer and pressure bag with heparinized saline. Post Procedure: Pulses reassessed and unchanged. PERRLA. Strong, equal hand jewel sawyer bilaterally. No VTE prophylaxis required. Medication's Wasted: Lidocaine 1% = 10 mL. Medication's Wasted: Nitro = 49.6 mg. Medication's Wasted: Other = Fentanyl 75 mcg. Total IV fluids: 200 mL. Post-op diagnosis: Atherectomy with ballooning and stenting of the right SFA. Complications: none. Estimated blood loss: 5mL-10mL. Responsiveness - Normal response to verbal stimuli; alert and oriented, PERRLA. Airway - Unaffected, no intervention required; spontaneous ventilation. Circulation: W/N/L, pulses unchanged. Nausea/Vomiting: No. Procedure completed. Patient transferred by bed to CPRU. Vital chart was stopped. Access Site Site: Left Femoral artery Sheath Size: 6 Fr Hemostasis Method: Suture Hemostasis Success: Successful Procedure Medications Start: 8:04 AM Stop: 8:04 AM Medication: Versed Amount: 1 mg Route: I.V. Start: 8:04 AM Stop: 8:04 AM Medication: Fentanyl Amount: 50 mcg Route: I.V. Start: 8:07 AM Stop: 8:07 AM Medication: Versed Amount: 1 mg Route: I.V. Start: 8:07 AM Stop: 8:07 AM Medication: Fentanyl Amount: 25 mcg Route: I.V. Start: 8:15 AM Stop: 8:15 AM Medication: Versed Amount: 1 mg Route: I.V. Start: 8:15 AM Stop: 8:15 AM Medication: Fentanyl Amount: 25 mcg Route: I.V. Start: 8:28 AM Stop: 8:28 AM Medication: Versed Amount: 1 mg Route: I.V. Start: 8:43 AM Stop: 8:43 AM Medication: Heparin Amount: 70472 units Route: I.V. Start: 8:59 AM Stop: 8:59 AM Medication: Versed Amount: 1 mg Route: I.V. Start: 9:10 AM Stop: 9:10 AM Medication: Fentanyl Amount: 25 mcg Route: I.V. Start: 9:15 AM Stop: 9:15 AM Medication: Nitrogylcerin Amount: 400 mcg Route: I.A. Start: 9:12 AM Stop: 9:12 AM Medication: Versed Amount: 1 mg Route: I.V. Start: 9:36 AM Stop: 9:36 AM Medication: Heparin Amount: 1000 units Route: I.V. I, the attending physician, have reviewed and verified all procedure medications. Yes, all medications given per verbal order History/Risk Factors Hypertension: Yes Dyslipidemia: No Peripheral Arterial Disease (PAD): Yes Myocardial Infarction (NM): No Obesity: Yes Renal Disease: No Tobacco Use: Current/Recent(w/in 1 year) Prior Interventions PCI: Yes CABG: No Valve Surgery: No Date of PCI: 03/11/2024 Report Signatures Finalized by Preston Bangura MD on 05/26/2024 08:44 AM
[2024-05-11] MEDS: diphenhydrAMINE 50 mg Capsule PO (06:32)
--- NOTE | 2024-05-11 07:59 | W.PM.OPSUD ---
Surgery/Procedure H&P Update DATE OF PROCEDURE: May 11, 2024 DATE H&P PERFORMED: 04/27/24 H&P UPDATE INFORMATION: I have reviewed H&P completed within last 30 days, I have examined patient prior to procedure and No changes to prior documentation PREOP DIAGNOSIS: Severe lifestyle limiting claudication PRIMARY INDICATION FOR PROCEDURE: Severe lifestyle limiting claudication PLANNED PROCEDURE: Operation Date: 05/11/24 07:00 Proposed Procedures p Peripheral Diagnostic - Perip Angio Bilat(Bilateral) - Preston Bangura M.D Possible intervention PATIENT REASSESSED PRIOR TO SEDATION, WITH NO CHANGE NOTED: Yes PHYSICAL EXAM: alert, oriented x 3, clear to auscultation bilaterally and regular rate & rhythm AIRWAY EVAL/ANESTHESIA PLAN: normal airway, ASA III, Local Anesthesia, Risks, benefits & alternatives of sedation and/or procedure discussed and Patient agrees to continue as planned ADDITIONAL INFORMATION: Moderate sedation
--- NOTE | 2024-05-11 09:54 | PM.PROC ---
Procedure Note: Date of procedure: 05/11/24 Pre-procedure diagnosis: Severe lifestyle limiting claudication Post-procedure diagnosis: other (Critical right SFA stenosis s/p successful revascularization with balloon angioplasty, orbital arthrectomy and 1 stent) Procedure: Critical mid to distal SFA calcified stenosis s/p successful revascularization with balloon angioplasty, orbital arthrectomy and 1 stent placement. Below the knee has single vessel run off with patent AT which gives collaterals to PT and peroneal arteries. Continue aspirin and plavix Performing Provider: Preston Bangura Estimated blood loss (mL): 10 Complications: None Condition: stable Disposition: floor Coding Level of Care Code Acute Code for g Fwd
--- NOTE | 2024-05-11 09:55 | SUR.PHASEI ---
POST CATH NOTE Received patient from cardiac cath lab radiology technologist. Status post peripheral intervention from the left femoral artery. Arterial sheath to pressure bag. Site is hemostatic and free of hematoma or s/s of active bleed at this time. Vitals and assessments per flowsheet. Will continue to monitor.
--- NOTE | 2024-05-11 11:04 | PC.NURSE ---
Patient transferred from label rewinder to CSU with a left femoral sheath. NS at 100ml/hr x 12 hours. Here at 1100.
[2024-05-11 13:18] LABS: Partial Thromboplastin Time 62.7 SECONDS (23.9-36.7)
[2024-05-11 15:22] LABS: Partial Thromboplastin Time 34.7 SECONDS (23.9-36.7)
--- NOTE | 2024-05-11 16:39 | PC.NURSE ---
Addendum entered by Bobbi Salmon RN 05/11/24 16:58: Provider ordered fentanyl 25mg once now for sheath pull. Ordered arterial duplex of left leg after the sheath pull. Original Note: Provider ordered hydralazine 10mg once now.
[2024-05-11] MEDS: fentaNYL 50 mcg/mL INJ 2mL 25 MCG IVP (16:45)
[2024-05-11] MEDS: hyDRALAzine 20 mg/mL INJ 1 mL 10 MG IVP ×2 (16:46→17:22)
--- NOTE | 2024-05-11 16:54 | USR_ITS ---
PROCEDURE INFORMATION: Exam: US Duplex Left Lower Extremity Arteries Or Arterial Bypass Grafts Exam date and time: 05/11/2024 6:55 PM Age: 69 years old Clinical indication: Device placement; Other: Cardiac cath; Additional info: Post cath TECHNIQUE: Imaging protocol: Left Real-time duplex scan of the arteries or arterial bypass grafts of the left lower extremity with 2-D bernardo scale, color Doppler flow and spectral waveform analysis. Images documented and saved. COMPARISON: CT angio abd aorta runof [id number] 03/25/2024 1:39 PM FINDINGS: Left common femoral artery: No occlusion or significant stenosis. Normal waveform. Left profunda femoris artery: Left profunda femoral artery somewhat biphasic waveforms reflecting a degree of stenosis. Left superficial femoral artery: No occlusion or significant stenosis. Normal waveform. Left popliteal artery: Left popliteal artery somewhat biphasic waveforms reflecting a degree of stenosis. Left calf/foot arteries: Left dorsalis pedis artery monophasic waveforms reflecting a degree of stenosis. Left posterior tibial artery somewhat biphasic waveforms reflecting a degree of stenosis. US/CV arterial duplex [facility] [id number] IMPRESSION: 1. Negative for findings of pseudoaneurysm or arteriovenous fistula. 2. Lower extremity arterial system appears patent with suspected areas of stenosis as described.
[2024-05-11 17:21] LABS: Glucose Point of Care 133 mg/dL (70-110)
[2024-05-11] MEDS: alum-mag-hydroxide-sime 30 mL UDC PO ×2 (18:11→20:19)
--- NOTE | 2024-05-11 19:18 | PC.NURSE ---
Patient came to CSU from laborer cutting tool with a left groin sheath. Nursing staff was going to pull the sheath and no blood return was obtained. Dr Bangura was called and came to bedside. Dr Bangura did try to obtain blood return but no return was obtained. Provider ordered to pull the sheath and this was done by nursing staff. Manual pressure was held for 25 minutes per provider. No hematoma is noted. Patient tolerated well. Patient is reeducated to not move his left leg or to sit up until 2300. Patient states understanding.
[2024-05-11] MEDS: atorvastatin 40 mg Tablet 80 MG PO (20:19)
[2024-05-11 21:02] LABS: Glucose Point of Care 212 mg/dL (70-110)
[2024-05-12] VITALS: BP 136/59; PULSE 77; RESP 22; TEMP 36.8; O2SAT 93
[2024-05-12 04:19] LABS: Basophils # 0.1 10^3/uL (0.0-0.1); Basophils % 0.7 %; Eosinophils # 0.3 10^3/uL (0.0-0.8); Eosinophils % 3.6 %; Hematocrit 34.6 % (37-53); Lymphocytes # 2.9 10^3/uL (0.8-4.8); Lymphocytes % 33.1 %; Mean Corpuscular HGB Conc 33.8 g/dL (30-55); Mean Corpuscular Hemoglobin 30.5 pg (27-33); Mean Corpuscular Volume 90.3 fl (82-101); Mean Platelet Volume 9.7 fL (7.4-10.4); Monocytes # 1.1 10^3/uL (0.2-0.9); Monocytes % 12.4 %; Neutrophils # 4.27 10^3/uL (1.8-7.7); Neutrophils % 49.7 %; Nucleated Red Blood Cells % 0 %; Platelet Count 314 10^3/cmm (157-399); Red Blood Count 3.83 10^6/uL (3.85-5.65)
[2024-05-12 04:40] LABS: Anion Gap 11.7 (5-19); Blood Urea Nitrogen 7 mg/dL (8-23); Carbon Dioxide 28 mmol/L (22-29); Chloride 102 mmol/L (98-107); Glomerular Filtration Rate 165.9 mL/min (90-130); Glucose 136 mg/dL (65-115); Osmolality Calculated 288 mOsm/kg (285-295); Sodium 139 mmol/L (136-145)
[2024-05-12 04:49] LABS: Potassium 2.7 mmol/L (3.5-5.1)
[2024-05-12] MEDS: lidocaine 1% 5 ML in potassium chloride premix 100 ML 52.5 ML IV ×2 (05:51→07:45)
[2024-05-12 06:14] LABS: Glucose Point of Care 150 mg/dL (70-110)
[2024-05-12 07:16] VITALS: BP 150/73; PULSE 85; RESP 20; TEMP 36.6; O2SAT 95
--- NOTE | 2024-05-12 07:51 | P.SS_ITS ---
<Statement entered by Preston Bangura M.D - 05/13/24 10:56> Patient was cared for in conjunction with an advanced practice practitioner.? I reviewed the chart and all pertinent data including imaging, telemetry, and laboratory results.? I discussed the patient in detail with the advanced practice practitioner.? Please see? their note for discharge summary, testing results and agreed upon plan of care for the patient. Short Stay Summary Providers Date of Admit/Discharge: 05/12/24 Attending Provider: Preston Bangura M.D Primary Care Provider: BANDAR Rodriguez Chief Complaint: [id number] HPI History of Present Illness Cristina Tan is a 69 year old male with past medical history of PAD, COPD, NAT on CPAP, hypertension, diabetes, GERD. He was admitted yesterday for planned intervention on the right leg due to severe lifestyle limiting claudication. Review of Systems Card: Denies: chest pain, palpitations, irregular heart rhythm, edema, swelling of feet/ankles, lightheadedness, syncope, pre-syncope, dyspnea on exertion, orthopnea or leg pain with exertion Resp: Denies: dyspnea, productive cough or non-productive cough GI: Denies: hematochezia : Denies: hematuria Skin/Breast: Reports: surgical incision Cal/Lymph: Denies: easy bleeding Home Meds/Allergies Home Medications and Allergies Home Medications ?Medication ?Instructions ?Recorded ?Confirmed ?Type sumatriptan succinate 100 mg tablet See Rx Instruction s PO .COMPLEX 09/07/20 05/11/24 History PRN Migraine Headache aspirin 81 mg tablet,delayed 81 mg PO DAILY 07/12/21 0 05/11/24 History release Fish Oil 1 tab PO DAILY 12/28/21/06/12 History pantoprazole 40 mg tablet,delayed 40 mg PO DAILY 01/3105/11/24 History release glipizide 5 mg tablet 5 mg PO BID 04/24/23 5 History metformin 500 mg tablet,extended 1,000 mg PO BID 04/2305/11/24 History release 24 hr Held on 03/12/24. Instructions: Resume on 03/15/24. CPAP 12/24/23 05/11/24 History metoprolol succinate 100 mg 100 mg PO DAILY 02/25/24 0 05/11/24 History tablet,extended release 24 hr Allergies Allergy/AdvReac Type Severity Reaction Status Date / Time dexamethasone Allergy unknown Verified 05/11/24 07:54 hydrocodone Allergy NA Verified 05/11/24 07:54 morphine Allergy NA Verified 05/11/24 07:54 PFSH Acute PFSH: Medical History Peripheral arterial disease Type 2 diabetes mellitus Migraine, unspecified, not intractable, without status migrainosus Prostate cancer metastatic to bone Pulmonary nodule Essential hypertension Asthma with chronic obstructive pulmonary disease (COPD) GERD (gastroesophageal reflux disease) Obesity Sleep apnea Surgical History History of endarterectomy S/P tonsillectomy H/O cervical spine surgery C5/6 fusion S/P arterial stent (2020) Placement of common iliac artery stent bilaterally and right external iliac artery stent S/P arthroscopic knee surgery S/P inguinal hernia repair S/P cholecystectomy S/P rotator cuff repair S/P cataract surgery Family History Father , 80 Chronic kidney disease (CKD) Diabetes Mother , at age 82 Hypertension Diabetes CAD (coronary artery disease) Social History Smoking and tobacco/nicotine status: current every day tobacco/nicotine user cigarettes Packs smoked per day: 0.5 Years cigarettes smoked: 50 Alcohol intake: never Substance/Drug Use: never Marital status: Current occupational status: disabled Vitals/I&O/Wt Last Vital Signs Temp 97.9 F 05/12/24 07:16 Pulse 85 05/12/24 07:16 Resp 20 H 05/12/24 07:16 BP 150/73 05/12/24 07:16 Pulse Ox 95 05/12/24 07:16 O2 Del Method Room Air 05/12/24 07:16 O2 Flow Rate 2 05/11/24 11:11 05/11/24 05/12/24 05/12/24 22:59 06:59 14:59 Intake Total 460 / 800 100 / 800 Output Total 650 / 1175 200 / 1175 Balance -190 / -375 -100 / -375 Weight last 48 hrs Weight 347 lb 9.6 oz Weight 304 lb Weight 304 lb Physical Exam Const: COMMON NORMALS: no acute distress and patient oriented x3 GENERAL APPEARANCE: cooperative ORIENTATION/CONSCIOUSNESS: Yes awake, Yes oriented to person, Yes oriented to place and Yes oriented to time Chest: COMMONS NORMALS: normal inspection of the chest and normal palpation of entire chest wall CHEST: Yes Symmetrical chest wall rise Resp: COMMON NORMALS: normal respiratory effort, No retractions, No use of accessory muscles and clear to auscultation bilaterally AUSCULTATION: clear to auscultation bilaterally Cardio: COMMON NORMALS: regular rate, regular rhythm, S1 normal heart sound present, S2 normal heart sound present, No gallops present (Cardio), No clicks present (Cardio), No murmurs present (Cardio) and No rub (Cardio) RATE: regular rate RHYTHM: regular rhythm HEART SOUNDS: S1 normal heart sound present and S2 normal heart sound present PERIPHERAL PULSES: radial pulses present positive right 2+ and femoral pulses present positive right 2+ Neuro: COMMON NORMALS: patient oriented x3 and moves all extremities SENSORIUM/ORIENTATION: Yes oriented to person, Yes oriented to place and Yes oriented to time Skin: WOUNDS: Yes surgical site (no hematoma palpable) Details: no odor Hospital Course Hospital Course He had critical right mid to distal SFA stenosis treated with balloon angioplasty, orbital atherectomy and stent placement. Potassium found to be low with morning labs, 2.7. He has received 2 infusions of potassium this morning, recheck BMP showed potassium was 3.4, will give oral potassium 20mEq prior to discharge. No complications with left femoral cath site. He has been ambulating the hallway without difficulty. He should have a recheck of potassium at his hospital follow-up. Follow-up with cardiology UNIVERSITY LIBRARIAN in the clinic in 7 to 10 days. SSS Data Data Completed and Pending: Completed Studies During Hospitalization Category Date Time Status US arterial duple x lower extremity LT [CV arterial Ultrasound 05/11/24 16:54 Completed duplex LE LT [id number]] Routine Pending at discharge Category Date Time Status UPTWIST SPINNER request for service Routin e Exams 05/11/24 06:20 Taken Discharge Plan Discharge Patient Disposition: Home Prescriptions: Continued sumatriptan succinate 100 mg tablet See Rx Instructions PO .COMPLEX PRN (Reason: Migraine Headache) Rx Instructions: take 1 tab at onset of headache; if no relief, may repeat 1 tab after at least 2 hrs; max = 2 tabs/24 hrs PO (DME) CPAP Device See Rx Instructions .Route Rx Instructions: As directed nitroglycerin 0.4 mg tablet, sublingual 0.4 mg sublingual Q5M PRN (Reason: chest pain) Qty: 25 2RF Rx Instructions: do not exceed 3 doses per episode clopidogrel 75 mg tablet 75 mg PO DAILY Qty: 90 3RF atorvastatin 40 mg tablet 80 mg PO BEDTIME Qty: 180 2RF pantoprazole 40 mg tablet,delayed release (DR/EC) 40 mg PO DAILY glipizide 5 mg tablet 5 mg PO BID Patient Comments: 10 mg total metoprolol succinate 100 mg tablet extended release 24 hr 100 mg PO DAILY lidocaine-prilocaine 2.5-2.5 % cream 1 applic topical .COMPLEX Qty: 30 2RF Rx Instructions: Apply quarter-size amount to port site 30 minutes prior to access; cover with cling wrap sacubitril-valsartan [Entresto] 49-51 mg tablet 1 tab PO BID Qty: 180 3RF potassium chloride [K-Tab] 20 mEq tablet extended release 20 meq PO DAILY Qty: 7 0RF Rx Instructions: Take for 3 day's aspirin 81 mg Tablet,Delayed Release (Dr/Ec) 81 mg PO DAILY Fish Oil 1 tab PO DAILY Held metformin 500 mg tablet extended release 24 hr 1,000 mg PO BID Hold Instructions: Resume on 05/14/24. Discharge Orders: Discharge Order (Routine); Ordered 05/12/24 Ordered By: Crissy Camarillo Referrals: Crissy Camarillo FNP [Nurse Practitioner] - 05/19/24 2:00 pm Evelina Shah FNP [Primary Care Provider] - 05/14/24 9:00 am Diet: Advance as tolerated Activity: Increase activity as tolerated Patient Instructions: Peripheral Vascular Stent Placement (DC), Post Angiogram Home Care Instructions Activity Restrictions/Additional Instructions: No lifting over 5 pounds for the next 4 days. Print Language: Frisian Attestations Medical Necessity Statement*: discharge today Time Spent in Patient Care*: less than 30 min Quality Metrics Clinical Quality Measures: [ No reported AMI, CVA or VTE this stay ] Coding Level of Care Code Acute Code for g Fwd
[2024-05-12] MEDS: nitroglycerin 0.4 mg sublingual Tablet SUBLINGUAL (08:37)
[2024-05-12] MEDS: aspirin 81 mg EC Tablet PO (08:42)
[2024-05-12] MEDS: alum-mag-hydroxide-sime 30 mL UDC PO (08:42)
[2024-05-12] MEDS: clopidogrel 75 mg Tablet PO (08:42)
--- NOTE | 2024-05-12 08:53 | PC.NURSE ---
Patient complained of chest pain when nurse entered the room to give his morning medications. Pain 10/10. Nurse gave patient a sublig. nitro. Patient also took his morning medications and said that his pain is completely gone.
[2024-05-12 10:39] LABS: Anion Gap 14.4 (5-19); Blood Urea Nitrogen 8 mg/dL (8-23); Calcium 7.6 mg/dL (8.5-10.5); Carbon Dioxide 25 mmol/L (22-29); Chloride 101 mmol/L (98-107); Glomerular Filtration Rate 165.9 mL/min (90-130); Glucose 174 mg/dL (65-115); Osmolality Calculated 287 mOsm/kg (285-295); Potassium 3.4 mmol/L (3.5-5.1); Sodium 137 mmol/L (136-145)
[2024-05-12] MEDS: potassium chloride ER 20 mEq Tablet PO (11:01)
--- NOTE | 2024-05-12 11:32 | PC.SOCIAL ---
[facility]. No needs voiced for CM.
[2024-05-12 11:44] VITALS: BP 144/73; PULSE 85; RESP 26; O2SAT 91
== END 2024-05-12 11:55 | disposition home or self-care (01) ==
LOC: CCL 05:53 → CSU 11:02
PROVIDERS: Nurse Practitioner Family; PCP Nurse Practitioner; Visit Provider Internal Medicine
DX: I70.211 Atherosclerosis of native arteries of extremities with intermittent claudication, right leg (principal); Z79.82 Long term (current) use of aspirin; K21.9 Gastro-esophageal reflux disease without esophagitis; G47.33 Obstructive sleep apnea (adult) (pediatric); J44.9 Chronic obstructive pulmonary disease, unspecified; E11.9 Type 2 diabetes mellitus without complications; I10 Essential (primary) hypertension; E66.9 Obesity, unspecified; Z68.42 Body mass index [BMI] 45.0-49.9, adult; F17.210 Nicotine dependence, cigarettes, uncomplicated; Z82.49 Family history of ischemic heart disease and other diseases of the circulatory system
CPT/HCPCS: 36415; 36416; 36591; 37227; 75625; 75716; 80048; 82962; 85025; 85347; 85730; 93926; 96374; 96376; 99152; 99153; C1724; C1725; C1769; C1876; C1887; C1894; J0360; J1644; J2250; J3010; J3480; J3490; J7030; J9999; Q0163; Q9967

== ENCOUNTER → 2024-05-19 13:49 | Outpatient (BNVA) | payer OTHER, SELFPAY | PROVIDERS: PCP Nurse Practitioner; Visit Provider Nurse Practitioner Family | DX: Z09 Encounter for follow-up examination after completed treatment for conditions other than malignant neoplasm (principal) | CPT/HCPCS: 99214 ==

== ENCOUNTER 2024-06-01 10:31 | Oncology outpatient (recurring) (ONCR) | payer OTHER, SELFPAY ==
[2024-06-01 10:47] LABS: Basophils # 0.1 10^3/uL (0.0-0.1); Eosinophils # 0.5 10^3/uL (0.0-0.8); Eosinophils % 5.3 %; Hematocrit 38.1 % (37-53); Lymphocytes # 3.4 10^3/uL (0.8-4.8); Lymphocytes % 33.9 %; Mean Corpuscular HGB Conc 32.8 g/dL (30-55); Mean Corpuscular Hemoglobin 29.8 pg (27-33); Mean Corpuscular Volume 90.7 fl (82-101); Mean Platelet Volume 9.1 fL (7.4-10.4); Monocytes # 0.9 10^3/uL (0.2-0.9); Monocytes % 9.1 %; Neutrophils # 5.04 10^3/uL (1.8-7.7); Neutrophils % 50.5 %; Nucleated Red Blood Cells % 0 %; Platelet Count 347 10^3/cmm (157-399); Red Cell Distribution Width 14.1 % (12.1-15.1); White Blood Count 9.99 10^3/uL (3.29-11.43)
[2024-06-01 11:20] LABS: Alanine Aminotransferase 14 U/L (0-41); Albumin Level 3.6 g/dL (3.5-5.2); Alkaline Phosphatase 131 U/L (40-130); Aspartate Amino Transferase 17 U/L (0-40); Blood Urea Nitrogen 13 mg/dL (8-23); Calcium 8.7 mg/dL (8.5-10.5); Carbon Dioxide 23 mmol/L (22-29); Chloride 101 mmol/L (98-107); Creatinine Clr Calc Pharmacy 127.3931; Globulin 3.5 g/dL (1.3-4.6); Glomerular Filtration Rate 134.4 mL/min (90-130); Glucose 215 mg/dL (65-115); Osmolality Calculated 287 mOsm/kg (285-295); Prostate Specific Antigen 0.136 ng/mL (0-4); Sodium 135 mmol/L (136-145); Testosterone Total 5.7 ng/dL (193-740); Total Bilirubin 0.5 mg/dL (0.15-1.2); Total Protein 7.1 g/dL (6.6-8.7)
[2024-06-01] MEDS: denosumab 120 mg SDV SUBCUT (13:07)
== END 2024-06-17 23:59 | disposition home or self-care (01) ==
PROVIDERS: Internal Medicine Medical Oncology; PCP Nurse Practitioner; Visit Provider Internal Medicine
DX: C61 Malignant neoplasm of prostate (principal); C79.51 Secondary malignant neoplasm of bone; F17.210 Nicotine dependence, cigarettes, uncomplicated; I25.10 Atherosclerotic heart disease of native coronary artery without angina pectoris; Z95.5 Presence of coronary angioplasty implant and graft; Z79.899 Other long term (current) drug therapy
CPT/HCPCS: 36591; 80053; 84153; 84403; 85025; 96372; 99214; J0897

== ENCOUNTER → 2024-06-16 08:51 | Outpatient (BNVA) | payer OTHER, SELFPAY | PROVIDERS: PCP Nurse Practitioner; Visit Provider Surgery | DX: K21.9 Gastro-esophageal reflux disease without esophagitis (principal) | CPT/HCPCS: 99204 ==

== ENCOUNTER 2024-06-29 11:51 | Oncology outpatient (recurring) (ONCR) | payer OTHER, SELFPAY ==
[2024-06-29 12:21] LABS: Basophils # 0.1 10^3/uL (0.0-0.1); Basophils % 1.3 %; Eosinophils # 0.6 10^3/uL (0.0-0.8); Eosinophils % 6.5 %; Lymphocytes # 3.8 10^3/uL (0.8-4.8); Lymphocytes % 40.3 %; Mean Corpuscular HGB Conc 33.1 g/dL (30-55); Mean Corpuscular Hemoglobin 30.6 pg (27-33); Mean Corpuscular Volume 92.5 fl (82-101); Monocytes % 10.5 %; Neutrophils # 3.89 10^3/uL (1.8-7.7); Neutrophils % 41.2 %; Nucleated Red Blood Cells % 0 %; Platelet Count 321 10^3/cmm (157-399); Red Blood Count 3.89 10^6/uL (3.85-5.65); Red Cell Distribution Width 13.8 % (12.1-15.1); White Blood Count 9.43 10^3/uL (3.29-11.43)
[2024-06-29 12:59] LABS: Prostate Specific Antigen 0.137 ng/mL (0-4)
[2024-06-29 14:13] LABS: Alanine Aminotransferase 11 U/L (0-41); Albumin Level 3.6 g/dL (3.5-5.2); Alkaline Phosphatase 101 U/L (40-130); Aspartate Amino Transferase 15 U/L (0-40); Blood Urea Nitrogen 16 mg/dL (8-23); Calcium 9.2 mg/dL (8.5-10.5); Carbon Dioxide 24 mmol/L (22-29); Chloride 104 mmol/L (98-107); Creatinine Clr Calc Pharmacy 130.1524; Globulin 3.5 g/dL (1.3-4.6); Glomerular Filtration Rate 134.4 mL/min (90-130); Glucose 94 mg/dL (65-115); Osmolality Calculated 289 mOsm/kg (285-295); Sodium 139 mmol/L (136-145); Total Bilirubin 0.4 mg/dL (0.15-1.2); Total Protein 7.1 g/dL (6.6-8.7)
[2024-06-29] MEDS: denosumab 120 mg SDV SUBCUT (14:41)
== END 2024-07-18 23:59 | disposition home or self-care (01) ==
PROVIDERS: Nurse Practitioner Family; PCP Nurse Practitioner; Visit Provider Internal Medicine
DX: C61 Malignant neoplasm of prostate (principal); C79.51 Secondary malignant neoplasm of bone; F17.210 Nicotine dependence, cigarettes, uncomplicated; I25.10 Atherosclerotic heart disease of native coronary artery without angina pectoris; Z95.5 Presence of coronary angioplasty implant and graft; Z79.899 Other long term (current) drug therapy
CPT/HCPCS: 36591; 80053; 84153; 84403; 85025; 96372; 99214; J0897

== ENCOUNTER → 2024-07-24 07:53 | Outpatient (BNVA) | payer OTHER, SELFPAY | PROVIDERS: PCP Nurse Practitioner; Visit Provider Nurse Practitioner Family | DX: I73.9 Peripheral vascular disease, unspecified (principal); I10 Essential (primary) hypertension; I70.1 Atherosclerosis of renal artery; R93.89 Abnormal findings on diagnostic imaging of other specified body structures; Z79.02 Long term (current) use of antithrombotics/antiplatelets; Z79.82 Long term (current) use of aspirin; F17.210 Nicotine dependence, cigarettes, uncomplicated; Z86.39 Personal history of other endocrine, nutritional and metabolic disease | CPT/HCPCS: 99214 ==

== ENCOUNTER 2024-07-29 10:30 | Oncology outpatient (recurring) (ONCR) | payer OTHER, SELFPAY ==
[2024-07-27 13:38] LABS: Basophils # 0.1 10^3/uL (0.0-0.1); Basophils % 0.9 %; Eosinophils # 0.6 10^3/uL (0.0-0.8); Eosinophils % 5.3 %; Lymphocytes # 4.1 10^3/uL (0.8-4.8); Lymphocytes % 37.6 %; Mean Corpuscular HGB Conc 34.4 g/dL (30-55); Mean Corpuscular Hemoglobin 30.9 pg (27-33); Mean Corpuscular Volume 89.8 fl (82-101); Mean Platelet Volume 8.6 fL (7.4-10.4); Monocytes # 1.1 10^3/uL (0.2-0.9); Monocytes % 9.8 %; Neutrophils # 5.06 10^3/uL (1.8-7.7); Neutrophils % 46.1 %; Nucleated Red Blood Cells % 0 %; Platelet Count 340 10^3/cmm (157-399); Red Blood Count 4.01 10^6/uL (3.85-5.65); Red Cell Distribution Width 13.3 % (12.1-15.1); White Blood Count 10.96 10^3/uL (3.29-11.43)
[2024-07-27 14:04] LABS: Alanine Aminotransferase 9 U/L (0-41); Albumin Level 3.7 g/dL (3.5-5.2); Alkaline Phosphatase 124 U/L (40-130); Anion Gap 12.2 (5-19); Aspartate Amino Transferase 14 U/L (0-40); Blood Urea Nitrogen 10 mg/dL (8-23); Calcium 9.2 mg/dL (8.5-10.5); Carbon Dioxide 27 mmol/L (22-29); Chloride 100 mmol/L (98-107); Globulin 3.4 g/dL (1.3-4.6); Glomerular Filtration Rate 112.5 mL/min (90-130); Glucose 158 mg/dL (65-115); Osmolality Calculated 282 mOsm/kg (285-295); Potassium 4.2 mmol/L (3.5-5.1); Prostate Specific Antigen 0.201 ng/mL (0-4); Sodium 135 mmol/L (136-145); Testosterone Total 15.8 ng/dL (193-740); Total Bilirubin 0.5 mg/dL (0.15-1.2); Total Protein 7.1 g/dL (6.6-8.7)
[2024-07-27] MEDS: denosumab 120 mg SDV SUBCUT (14:38)
[2024-07-27] MEDS: leuprolide 22.5 mg Kit IM (14:39)
--- NOTE | 2024-07-29 10:45 | CT_ITS ---
WS: [id number] CT adrenals with and without contrast. HISTORY: abnormal CTA aortic runoff/ LEFT ADRENAL NODULE Noncontrast 2 mm imaging is performed through the abdomen with attention to the adrenal glands. Additional 1 minute and 15 minute delayed images are then performed through the adrenal glands. CONTRAST: Omnipaque 350; 100 cc. DLP: 2184.[address] scans at [facility] use at least one of these dose optimization techniques: automated exposure control; mA and/or kV adjustment per patient size (includes targeted exams where dose is matched to clinical indication); or iterative reconstruction. COMPARISON: 03/25/2024, 07/11/2023 Lower thorax: Unremarkable. Liver: Normal. No intrahepatic dilatation. Gallbladder: Prior cholecystectomy. Normal portal vein. Pancreas: Normal. Spleen: Granuloma. Normal size. ADRENAL GLANDS. RIGHT: Normal. No mass or enlargement. LEFT: LEFT adrenal nodule measures 12 mm. Absolute washout value is 81%. Relative washout value is 61%. Both of these values indicate this is a benign adenoma. Right kidney: Normal size kidney with nonobstructing very small calcifications and arterial calcifications. No mass or obstruction. Left kidney: Normal size with no obstruction. No calcifications. No solid mass. There are a few tiny low-attenuation cortical lesions which are too small to characterize. Aorta: Moderate atherosclerosis aorta. Atherosclerotic plaque extends into the celiac axis and mesenteric arteries. GI tract: As visualized within the abdomen normal. No obstructive pattern. No colitis. There is mild gastric wall thickening which is probably related to under distention. No adenopathy or free fluid. Abdominal wall: No hernia. Visualized osseous structures: Unremarkable. CT/CT abdomen wo/w con [id number] IMPRESSION: 1. LEFT adrenal adenoma, 12 mm. Both the washout and relative values indicate this is a benign adenoma. 2. Prior cholecystectomy.
[2024-07-29] MEDS: iohexol 350 mg/mL 500 mL Btl (per mL) IV (10:48)
== END 2024-08-17 23:59 | disposition home or self-care (01) ==
PROVIDERS: PCP Nurse Practitioner; Visit Provider Nurse Practitioner Family
DX: R93.89 Abnormal findings on diagnostic imaging of other specified body structures; Z45.2 Encounter for adjustment and management of vascular access device; D35.02 Benign neoplasm of left adrenal gland; Z90.49 Acquired absence of other specified parts of digestive tract; D73.89 Other diseases of spleen; N28.89 Other specified disorders of kidney and ureter; I70.0 Atherosclerosis of aorta; I70.8 Atherosclerosis of other arteries; K55.1 Chronic vascular disorders of intestine; Z53.9 Procedure and treatment not carried out, unspecified reason
CPT/HCPCS: 36591; 74170; 80053; 84153; 84403; 85025; 96372; 96402; 99214; J0897; J9217

== ENCOUNTER 2024-09-07 14:00 | Oncology outpatient (recurring) (ONCR) | payer OTHER, SELFPAY ==
--- NOTE | 2024-08-25 15:00 | CTR_ITS ---
PROCEDURE INFORMATION: Exam: CTA Abdominal Aorta and Bilateral Lower Extremities (Run-off) With Contrast Exam date and time: 08/25/2024 3:04 PM Age: 69 years old Clinical indication: Condition or disease; Atherosclerosis and stricture and peripheral vascular disease; Lower extremity, modoc arteries; Prior surgery; Surgery date: 1-6 months; Surgery type: Balloon angioplasty to right sfa in April and May. Previous gb. HX of prostate cancer to mets to bone; Pad, left claudication sfa stenosis, bilateral feet pain and swelling, ; additional info: Left claudication, sfa stenosis TECHNIQUE: Imaging protocol: Computed tomographic angiography of the of the abdominal aorta, pelvis and bilateral lower extremities with contrast. 3D rendering (Not supervised by radiologist): MIP and/or 3D reconstructed images were created by the technologist. Radiation optimization: All CT scans at this facility use at least one of these dose optimization techniques: automated exposure control; mA and/or kV adjustment per patient size (includes targeted exams where dose is matched to clinical indication); or iterative reconstruction. Contrast material: OMNIPAQUE 350; Contrast volume: 125 ml; Contrast route: INTRAVENOUS (IV); Other technique: 3D MIP reconstructed images are provided COMPARISON: CT angio abd aorta runof [id number] 03/25/2024 1:39 PM RADIATION DOSE METRICS: Total DLP (mGy-cm): 2065. FINDINGS: Aorta: Patchy proximal abdominal aortic atherosclerotic calcifications are evident. They become more extensive in the infrarenal region extending to the bifurcation. Celiac trunk and mesenteric arteries: No significant stenosis is identified. Renal arteries: The right renal artery shows proximally 90% stenosis, increased from 50% stenosis on the prior study. Left renal artery is patent. Bilateral single renal arteries noted. Right iliac arteries: The right common iliac arteries show extensive atheromatous calcification with proximally 50% stenosis in the proximal extent. These appear unchanged. Multifocal potentially significant atherosclerotic calcifications are seen in both internal iliac arteries. These appears stable. Moderate atherosclerotic load in both external iliac arteries is demonstrated, also stable from prior study. Right femoral/popliteal arteries: Right femoral artery shows fusiform enlargement with overlying subcutaneous scarring consistent with changes related to prior catheterization. This is stable from prior study. Scattered superficial femoral atheromatous plaque is identified through the level of the popliteal artery with little intravascular contrast identified distal to the emergence of the femoral artery from the femoral canal. This may in part be due to changes in contrast timing. The degree of stenosis appears relatively unchanged as does the plaque burden. Proximally 70% stenosis of the popliteal artery due to calcified plaque (5/798), similar to the prior study. Distal contrast opacification of the popliteal artery is demonstrated. The profunda appearance unchanged from prior study. Right infrapopliteal arteries: There is moderate plaque burden with good three-vessel runoff identified through the foot. No significant change is apparent. Left iliac arteries: There is high plaque burden in the left common, internal, and external iliac arteries, similar to the prior examination. 50% stenosis of the proximal common left iliac artery is present. Proximally 50% stenosis proximal left internal and external iliac arteries is also seen stable moderate plaque burden. Left femoral/popliteal arteries: The left common femoral artery shows moderate plaque burden and a similar lack of intravascular contrast as it emerges from the femoral canal. Right profunda femoral artery is patent without significant stenosis. Left profunda femoral artery shows moderate plaque burden but good intraluminal contrast opacification. There is good opacification of the left popliteal artery in spite of lack visualization contrast in the distal superficial femoral artery. Is moderate plaque burden proximally 70 % stenosis in the proximal popliteal artery (5/780), similar to the prior study. Left infrapopliteal arteries: [id number] plaque burden. There is two-vessel runoff to the foot. The anterior tibial artery shows a lack of intraluminal contrast, similar to the prior study. Liver: There is mild stable hepatic steatosis.. Gallbladder and biliary ducts: Prior cholecystectomy. Pancreas: Unremarkable. No mass. No ductal dilation. Spleen: Granulomatous calcification. No splenomegaly. No change. Adrenal glands: Normal. No mass. Kidneys and ureters: Stable small bilateral renal cortical cysts. Stomach and bowel: Unremarkable. No obstruction. No mucosal thickening. Appendix: No evidence of appendicitis. Urinary bladder: Unremarkable. No mass. Reproductive: Stable with dystrophic prostate calcifications.. Intraperitoneal space: Unremarkable. No free air. No significant fluid collection. Lymph nodes: No lymphadenopathy. Bones/joints: Stable sclerotic foci are identified left pubic bone, left ilium adjacent to acetabulum, posterior inferior ischium, in the posteromedial aspect of the right acetabular cup in cerebral foci within the right ischium, within left sacral ala, and scattered throughout the thoracic and lumbar vertebra. No pathologic fractures are evident. Appearance is consistent with sclerotic metastases. These appear relatively unchanged from the prior study. Soft tissues: Stable atrophy right sartorius muscle belly.. Notes: If there is further concern can consider conventional angiography. CT/CT angio abd aorta runof [id number] IMPRESSION: 1. Relatively stable CTA of the abdomen lower extremity runoff, with diffuse plaque burden as detailed above including stable near occlusion distal right superficial femoral artery patent three-vessel runoff to the right foot, two-vessel runoff to the left foot (posterior tibial and peroneal), and fusiform enlargement of the right common femoral artery beneath an area scarring suggesting possible pseudoaneurysm formation secondary to prior catheterization. 2. Stable hepatic steatosis. 3. Stable bilateral renal cortical cysts. 4. Stable multiple osseous sclerotic metastases. 5. Increased proximal right renal artery stenosis common now measuring proximally 90%.
[2024-08-25] MEDS: iohexol 350 mg/mL 500 mL Btl (per mL) IV (15:18)
== END 2024-09-17 23:59 | disposition home or self-care (01) ==
PROVIDERS: PCP Nurse Practitioner; Visit Provider Nurse Practitioner Family
DX: Z53.9 Procedure and treatment not carried out, unspecified reason (principal); Z45.2 Encounter for adjustment and management of vascular access device
CPT/HCPCS: 75635; 96523

== ENCOUNTER 2024-09-24 08:57 | Day surgery (SDC) | payer OTHER, SELFPAY ==
--- NOTE | 2024-09-24 09:15 | W.PM.OPSFHP ---
Same Day Surgery H&P Indication for Procedure/HPI DATE OF PROCEDURE: September 24, 2024 CHIEF COMPLAINT/INDICATIONFOR SURGICAL PROCEDURE: GERD PREOP DIAGNOSIS: GERD PLANNED PROCEDURE: Operation Date: 09/24/24 11:00 Proposed Procedures p EGD with Biopsy 93022, K21.9(Not Applicable) - Neymar Quinn MD Medications/Allergies* Home Medications ?Medication ?Instructions ?Recorded ?Confirmed ?Type sumatriptan succinate 100 mg tablet See Rx Instructions PO .COMPLEX 09/07/20 09/24/24 History PRN Migraine Headache aspirin 81 mg tablet,delayed 81 mg PO DAILY 07/12/21 09/24/24 History release Fish Oil 1 tab PO DAILY 12/28/21 09/24/24 History pantoprazole 40 mg tablet,delayed 40 mg PO DAILY 01/31/23 09/24/24 History release glipizide 5 mg tablet 5 mg PO BID 04/24/23 09/24/24 History CPAP 12/24/23 07/27/24 History metoprolol succinate 100 mg 100 mg PO DAILY 02/25/24 09/24/24 History tablet,extended release 24 hr Allergies/Adverse Reactions Allergy/AdvReac Type Severity Reaction Status Date / Time dexamethasone Allergy unknown Verified 09/24/24 09:13 hydrocodone Allergy NA Verified 09/24/24 09:13 morphine Allergy NA Verified 09/24/24 09:13 Pertinent History/Comorbid Conditions* Medical History (Updated 07/14/24 @ 16:26 by Stephanie Laughlin APRN) Peripheral arterial disease Type 2 diabetes mellitus Migraine, unspecified, not intractable, without status migrainosus Prostate cancer metastatic to bone Pulmonary nodule Essential hypertension Asthma with chronic obstructive pulmonary disease (COPD) GERD (gastroesophageal reflux disease) Obesity Sleep apnea Surgical History (Updated 01/09/24 @ 15:58 by EUGENE Villeda) History of endarterectomy S/P tonsillectomy H/O cervical spine surgery C5/6 fusion S/P arterial stent (2020) Placement of common iliac artery stent bilaterally and right external iliac artery stent S/P arthroscopic knee surgery S/P inguinal hernia repair S/P cholecystectomy S/P rotator cuff repair S/P cataract surgery Family History (Updated 04/02/19 @ 16:31 by Isabella Bernal RN) Father, 80 Mother, at age 82 Diabetes Father Mother CAD (coronary artery disease) Mother Chronic kidney disease (CKD) Father Hypertension Mother Social History Smoking and tobacco/nicotine status: current every day tobacco/nicotine user cigarettes Packs smoked per day: 0.5 Years cigarettes smoked: 50 Alcohol intake: never Substance/Drug Use: never Marital status: Current occupational status: disabled Pertinent Exam Findings alert, oriented x 3, clear to auscultation bilaterally and regular rate & rhythm Recommendations Surgery/Procedure today Coding Level of Care Code Acute Code for Chg Fwjustyna
[2024-09-24 09:16] VITALS: BP 176/87; PULSE 60; RESP 16; TEMP 36.4; O2SAT 97; BMI 44.6
--- NOTE | 2024-09-24 09:46 | ECG_ITS ---
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: : 1955 Requested By: Mayte Hamilton Order Number: [id number] Reading MD: PER JOHNSON Measurements Intervals [place] Rate: 59 P: 67 AR: 138 QRS: 39 QRSD: 157 T: 66 QT: 505 QTc: 504 Interpretive Statements SINUS BRADYCARDIA RIGHT BUNDLE BRANCH BLOCK [120+ ms QRS DURATION, UPRIGHT V1, 40+ ms S IN I/aVL/V4/V5/V6] MODERATE T-WAVE ABNORMALITY, CONSIDER LATERAL ISCHEMIA [-0.1+ mV T-WAVE IN I/aVL/V5/V6] INTERPRETATION BASED ON A DEFAULT AGE OF 40 YEARS Compared to ECG 03/11/2024 19:57:43 Sinus rhythm no longer present T-wave abnormality still present Possible ischemia still present Electronically Signed On 09-29-2024 19:03:00 CDT by PER JOHNSON [email or web address]
--- NOTE | 2024-09-24 09:51 | ANES.PREANE2 ---
Pre-Anesthetic Assessment Height/Weight: Height 1.8 m Weight 145.15 kg Temp Pulse Resp BP Pulse Ox O2 Del Method 97.5 F L 60 16 176/87 97 Room Air 09/24/24 09:16 09/24/24 09:16 09/24/24 09:16 09/24/24 09:16 09/24/24 09:16 09/24/24 09:16 Preop Diagnosis: GERD Operation Date: 09/24/24 11:00 Proposed Procedures p EGD with Biopsy 77795, K21.9(Not Applicable) - Neymar Quinn MD Familial anesthetic complications: None Was Beta Twin taken within 24 hours: N/A Was Clonidine taken within 24 hours: N/A Last intake: Intake Last Liquid Date 09/23/24 Last Liquid Time 20:30 Last Solid Date 09/23/24 Last Solid Time 19:00 Social No alcohol and No tobacco Exam alert, oriented x 3, clear to auscultation bilaterally and regular rate & rhythm Airway Mallampati: Class IV Dentition: chipped Comments: Comments: large neck circumference, martin Pulmonary Asthma, Chronic Obstructive Pulmonary Disease and Sleep Apnea CV/HEM Coronary Artery Disease (stents - cardiology ok'd to hold plavix starting end august), Hypertension and Peripheral Vascular Disease pulm htn GI Gastroesophageal Reflux Disease Metabolic Diabetes Mellitus, Hyperlipidemia and Morbid Obesity Anesthetic Plan ASA status: 4 Anesthesia: MAC Risk of > 500 ml blood loss (7ml/kg in children): No Medications/Allergies Home Medications ?Medication ?Instructions ?Recorded ?Confirmed ?Last Taken ?Type sumatriptan succinate 100 mg tablet See Rx Instructions PO .COMPLEX 09/07/20 09/24/24 05/11/24 05:00 History PRN Migraine Headache aspirin 81 mg tablet,delayed 81 mg PO DAILY 07/12/21 09/24/24 09/23/24 History release Fish Oil 1 tab PO DAILY 12/28/21 09/24/24 09/23/24 History pantoprazole 40 mg tablet,delayed 40 mg PO DAILY 01/31/23 09/24/24 09/24/24 History release glipizide 5 mg tablet 5 mg PO BID 04/24/23 09/24/24 09/23/24 History CPAP 12/24/23 07/27/24 Unknown History nitroglycerin 0.4 mg sublingual 0.4 mg sublingual Q5M PRN chest 12/24/23 09/24/24 1 Week Ago Rx tablet pain #25 tabs ~09/14/24 lidocaine-prilocaine 2.5 %-2.5 % 1 applic topical .COMPLEX #30 grams 02/17/24 09/24/24 05/11/24 05:00 Rx topical cream metoprolol succinate 100 mg 100 mg PO DAILY 02/25/24 09/24/24 09/24/24 History tablet,extended release 24 hr atorvastatin 40 mg tablet 80 mg (2 x 40 mg) PO BEDTIME #180 03/23/24 09/24/24 09/23/24 Rx tabs clopidogrel 75 mg tablet 75 mg PO DAILY #90 tabs 03/23/24 09/24/24 09/19/24 Rx sacubitril 49 mg-valsartan 51 mg 1 tab PO BID #180 tabs 04/13/24 09/24/24 09/23/24 Rx tablet (Entresto) furosemide 20 mg tablet (Lasix) 20 mg PO DAILY PRN edema #30 tabs 05/19/24 09/24/24 2 Months Ago Rx ~07/22/24 potassium chloride 20 mEq 20 meq PO BID PRN take extra dose 05/19/24 09/24/24 09/23/24 Rx tablet,extended release (K-Tab) with Lasix #60 tabs Allergies Allergy/AdvReac Type Severity Reaction Status Date / Time dexamethasone Allergy unknown Verified 09/24/24 09:13 hydrocodone Allergy NA Verified 09/24/24 09:13 morphine Allergy NA Verified 09/24/24 09:13 Current Medications Generic Name Dose Route Start Last Admin Trade Name Freq PRN Reason Stop Dose Admin Sodium Chloride 1,000 mls @ 15 mls/hr 09/24/24 09:06 09/24/24 09:37 Sodium Chloride 0.9% IV 09/25/24 09:05 15 mls/hr .Q24H PRN Administration COLONOSCOPY FLUIDS PFSH Anesthesia Medical History Peripheral arterial disease Type 2 diabetes mellitus Migraine, unspecified, not intractable, without status migrainosus Prostate cancer metastatic to bone Pulmonary nodule Essential hypertension Asthma with chronic obstructive pulmonary disease (COPD) GERD (gastroesophageal reflux disease) Obesity Sleep apnea Surgical History History of endarterectomy S/P tonsillectomy H/O cervical spine surgery C5/6 fusion S/P arterial stent (2020) Placement of common iliac artery stent bilaterally and right external iliac artery stent S/P arthroscopic knee surgery S/P inguinal hernia repair S/P cholecystectomy S/P rotator cuff repair S/P cataract surgery Family History Father , 80 Chronic kidney disease (CKD) Diabetes Mother , at age 82 Hypertension Diabetes CAD (coronary artery disease) Social History Smoking and tobacco/nicotine status: current every day tobacco/nicotine user cigarettes Packs smoked per day: 0.5 Years cigarettes smoked: 50 Alcohol intake: never Substance/Drug Use: never Marital status: Current occupational status: disabled Data Anesthesia 09/24/24 09:35 09/24/24 09:35 Cardiac Studies: Echocardiogram 01/29/24 Echocardiogram Ultrasound 03/23/20 Sestamibi Stress Test (Cardiology) 01/29/24
[2024-09-24 09:55] LABS: Hematocrit 37.6 % (37-53); Hemoglobin 12.70 g/dL (11.27-16.99); Mean Corpuscular HGB Conc 33.8 g/dL (30-55); Mean Corpuscular Hemoglobin 29.9 pg (27-33); Mean Corpuscular Volume 88.5 fl (82-101); Nucleated Red Blood Cells % 0 %; Platelet Count 317 10^3/cmm (157-399); Red Blood Count 4.25 10^6/uL (3.85-5.65); White Blood Count 9.33 10^3/uL (3.29-11.43)
[2024-09-24 10:05] LABS: Anion Gap 14.2 (5-19); Blood Urea Nitrogen 14 mg/dL (8-23); Calcium 9.2 mg/dL (8.5-10.5); Carbon Dioxide 26 mmol/L (22-29); Chloride 102 mmol/L (98-107); Creatinine Clr Calc Pharmacy 130.8424; Glucose 192 mg/dL (65-115); Osmolality Calculated 292 mOsm/kg (285-295); Potassium 4.2 mmol/L (3.5-5.1); Sodium 138 mmol/L (136-145)
[2024-09-24 10:50] VITALS: BP 196/89; PULSE 75; RESP 10; TEMP 36.3; O2SAT 93
[2024-09-24 11:08] VITALS: BP 166/81; PULSE 66; RESP 16; O2SAT 96
--- NOTE | 2024-09-24 12:19 | ANE.PACU2 ---
Inpatient post-anesthesia follow up: Airway intact: Yes Vital signs: Temperature 97.3 F Pulse Rate 66 Respiratory Rate 16 Blood Pressure 166/81 Pulse Oximetry 96 Oxygen Delivery Me thod Room Air Oxygen Flow Rate 3 Fraction of Inspir ed Oxygen Hydration adequate: Yes Nausea and vomiting: No Pain level: 1 Mental status: Baseline
== END 2024-09-24 11:35 | disposition home or self-care (01) ==
PROVIDERS: Anesthesiology; PCP Nurse Practitioner; Visit Provider Surgery
PROC: 0DJ08ZZ Inspection of Upper Intestinal Tract, Via Natural or Artificial Opening Endoscopic (ICD-10-PCS; principal; 2024-09-24 11:00)
DX: K21.9 Gastro-esophageal reflux disease without esophagitis (principal); K29.40 Chronic atrophic gastritis without bleeding; K44.9 Diaphragmatic hernia without obstruction or gangrene; J44.9 Chronic obstructive pulmonary disease, unspecified; G47.30 Sleep apnea, unspecified; E11.9 Type 2 diabetes mellitus without complications; I10 Essential (primary) hypertension; E66.9 Obesity, unspecified; Z68.41 Body mass index [BMI] 40.0-44.9, adult; C79.51 Secondary malignant neoplasm of bone; R91.1 Solitary pulmonary nodule; F17.210 Nicotine dependence, cigarettes, uncomplicated; Z79.82 Long term (current) use of aspirin
CPT/HCPCS: 36416; 43239; 80048; 82962; 85025; 88305; 88342; 93005; J2704; J7030

== ENCOUNTER 2024-10-12 05:56 | Outpatient (CLI) | payer OTHER, SELFPAY ==
[2024-10-12] VITALS (22 sets, daily range): BP systolic 116–171; BP diastolic 45–78; PULSE 50–70; RESP 15–26; TEMP 36.5; O2SAT 93–99; BMI 44.6
[2024-10-12 06:40] LABS: Hematocrit 36.7 % (37-53); Hemoglobin 12.30 g/dL (11.27-16.99); Mean Corpuscular HGB Conc 33.5 g/dL (30-55); Mean Corpuscular Hemoglobin 30.1 pg (27-33); Mean Corpuscular Volume 89.7 fl (82-101); Nucleated Red Blood Cells % 0 %; Platelet Count 301 10^3/cmm (157-399); Red Blood Count 4.09 10^6/uL (3.85-5.65); White Blood Count 9.98 10^3/uL (3.29-11.43)
[2024-10-12 06:55] LABS: Anion Gap 14.2 (5-19); Blood Urea Nitrogen 13 mg/dL (8-23); Calcium 9.2 mg/dL (8.5-10.5); Carbon Dioxide 24 mmol/L (22-29); Chloride 101 mmol/L (98-107); Glucose 253 mg/dL (65-115); Osmolality Calculated 289 mOsm/kg (285-295); Potassium 4.2 mmol/L (3.5-5.1); Sodium 135 mmol/L (136-145)
--- NOTE | 2024-10-12 07:00 | XACV_ITS ---
Ht: 180 cm Wt: 145 kg BSA: 2.77 m2 Any Known Allergies: Other Gender: Male : 1955 Exam Type: Invasive Peripheral Vascular Procedure(s): Procedure Description: Peripheral Cath Diagnostic Procedure Exam Priority: Routine Lower Extremity Diagnostic Findings INDICATION: Lifestyle limiting claudication of left lower extremity . Left lower extremity: Moderate diffuse SFA/ popliteal artery disease. Has 2 vessel runoff to foot. Anterior tibial artery is occluded. 2 vessel runoff to foot. Right lower extremity findings:Severe diffuse disease of right SFA. Mild to moderate ISR of prior mid SFA stent. Severe disease of right distal SFA and popliteal artery. Single-vessel runoff to foot via anterior tibial artery.. Conclusions Moderate disease of left lower extremity with two-vessel runoff to foot. Medical therapy. Patient has developed severe disease of right lower extremity including SFA and proximal popliteal artery. Will plan on staged intervention if patient agrees to quit smoking. He has claudication symptoms however with ongoing smoking, benefit of repeat revascularization will be limited. will discuss again as outpatient. Recommendations Outpatient cardiology follow up in 2-4 weeks. Hemodynamic Data Phase:Rest AO : 113.0 / 65.0 ( 87.0 ) @ 9:31:00 AM Access Site Site: Right Femoral artery Sheath Size: 6 Fr Hemost... Success: Unsuccessful Procedure Details Findings Procedure Consent Obtained. Pre-Procedure Time Out. Identified patient by full name and date of as verbalized by the patient/guarantor. Does the consent match the physician's order: Yes. Accurate & Complete Informed Consent: Yes. Inpatient/Outpatient History & Physical on Chart: Yes. If H&P is completed, is and addenduem needed: No. Visualize and Verify Site with Patient/Guarantor: N/A. Relevant Radiology Images available: Yes. The risks, benefits, and alternatives of sedation and/or procedure were discussed by physician. The patient agrees to continue. Procedure started. 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 Correct patient, site and procedure confirmed by cath team. PERRLA. Willson, equal hand costume seamstress bilaterally. Lungs clear x 5 lobes. IV Site on Arrival: right upper chest portacath. IV Fluids: 0.9% NaCl at KVO. 0 mL infused prior to prosthetic lab technician. Pre Procedural Pulses: bilateral dorsalis pedis was Doppled. Pre Procedural Pulses: bilateral posterior tibial was Doppled. Pre Procedural Pulses: bilateral radial was 2+. Oxygen started at 2liters/min via nasal canula. bilateral groins was prepped with chloroprep then draped in the usual sterile fashion. Physician notified. Baseline sample Acquired. HR: 63 BPM. Patient's family in CPRU room #3. Dr. Bangura will update a the completion of the procedure. Equipment: 6F - Femoral. Cardiac Cath Pack. ACIST Manifold Kit Model BT 2000. Heparinized Saline (2 units/mL), 1000 mL bag. Kit, Micropuncture. Physician arrived. Physician scrubbed in. Immediate Pre-Procedure Time Out. Correct Patient: Yes; Correct Procedure: Yes; Correct Site: Yes; Correct Patient Position: Yes; Correct Supplies: Yes; Dried Flammable Prep: Yes; Blood Products Available: N/A;. Lidocaine 1% infiltrated to the right groin. Arterial access obtained with micropuncture set using ultrasound guidance. Lidocaine 1% infiltrated to the right groin. Hand injection performed through the right femoral sheath. A 5Fr UF catheter in over wire. 0.035 x 260cm stiff angled glidewire in through the UF catheter. Glidewire out. Glidewire in. Glidewire out. Abdominal aortogram performed in AP @ 10 mL/sec for a total of 30 mL. Left common iliac selected and arteriogram with runoff performed @ 10 mL/sec for a total of 30 mL in DSA. Catheter out over the standard J wire. Sheath injected in Right common femoral artery and runoff performed @ 10mL/sec for a total of 30mL. Dr. Bangura scrubbed out. Sheath to be pulled on arrival to CPRU. Post Procedure: Pulses reassessed and unchanged. PERRLA. Strong, equal hand costume seamstress bilaterally. No VTE prophylaxis required. Medication's Wasted: Heparin = 1000 units. Medication's Wasted: Other = Versed 1mg. Medication's Wasted: Other = Fentanyl 25 mg. Post-op diagnosis: Severe PVD. Complications: none. Estimated blood loss: 5mL-10mL. Responsiveness - Normal response to verbal stimuli; alert and oriented, PERRLA. Airway - Unaffected, no intervention required; spontaneous ventilation. Circulation: W/N/L, pulses unchanged. Nausea/Vomiting: No. Vital chart was stopped. Procedure completed. Patient transferred by bed to CPRU. Procedure Medications Start: 8:05 AM Stop: 8:05 AM Medication: Versed Amount: 1 mg Route: I.V. Start: 8:05 AM Stop: 8:05 AM Medication: Fentanyl Amount: 50 mcg Route: I.V. Start: 8:09 AM Stop: 8:09 AM Medication: Versed Amount: 1 mg Route: I.V. Start: 8:19 AM Stop: 8:19 AM Medication: Fentanyl Amount: 25 mcg Route: I.V. Start: 8:23 AM Stop: 8:23 AM Medication: Versed Amount: 1 mg Route: I.V. I, the attending physician, have reviewed and verified all procedure medications. Yes, all medications given per verbal order History/Risk Factors Hypertension: Yes Dyslipidemia: No Peripheral Arterial Disease (PAD): Yes Obesity: Yes Renal Disease: No Tobacco Use: Current/Recent(w/in 1 year) Prior Interventions PCI: Yes CABG: No Valve Surgery: No Date of PCI: 03/11/2024 Report Signatures Finalized by Preston Bangura MD on 10/28/2024 10:13 AM
--- NOTE | 2024-10-12 07:55 | W.PM.OPSFHP ---
Same Day Surgery H&P Indication for Procedure/HPI DATE OF PROCEDURE: October 12, 2024 CHIEF COMPLAINT/INDICATIONFOR SURGICAL PROCEDURE: Severe lifestyle limiting claudication PREOP DIAGNOSIS: Severe lifestyle limiting claudication PLANNED PROCEDURE: Operation Date: 10/12/24 07:00 Proposed Procedures p Peripheral Diagnostic - Periph Angio Bilat(Bilateral) - Preston Bangura M.D Possible intervention 69-year-old man with past medical history of coronary artery disease, peripheral artery disease who has been having worsening left lower extremity discomfort. On prior angiogram had significant SFA/ popliteal artery disease. Plan for angiogram with possible intervention Medications/Allergies* Home Medications ?Medication ?Instructions ?Recorded ?Confirmed ?Type sumatriptan succinate 100 mg tablet See Rx Instructions PO .COMPLEX 09/07/20 10/09/24 History PRN Migraine Headache aspirin 81 mg tablet,delayed 81 mg PO DAILY 07/12/21 10/09/24 History release Fish Oil 1 tab PO DAILY 12/28/21 10/09/24 History pantoprazole 40 mg tablet,delayed 40 mg PO DAILY 01/31/23 10/09/24 History release glipizide 5 mg tablet 5 mg PO BID 04/24/23 10/12/24 History CPAP 12/24/23 10/09/24 History metoprolol succinate 100 mg 100 mg PO DAILY 02/25/24 10/09/24 History tablet,extended release 24 hr Allergies/Adverse Reactions Allergy/AdvReac Type Severity Reaction Status Date / Time dexamethasone Allergy unknown Verified 10/12/24 07:18 hydrocodone Allergy NA Verified 10/12/24 07:18 morphine Allergy NA Verified 10/12/24 07:18 Current Medications: Generic Name Dose Route Start Last Admin Trade Name Freq PRN Reason Stop Dose Admin Sodium Chloride 1,000 mls @ 50 mls/hr 10/12/24 06:00 10/12/24 07:16 Sodium Chloride 0.9% IV 10/13/24 01:59 Not Given .Q20H ONE Pertinent History/Comorbid Conditions* Medical History (Updated 07/14/24 @ 16:26 by Stephanie Laughlin APRN) Peripheral arterial disease Type 2 diabetes mellitus Migraine, unspecified, not intractable, without status migrainosus Prostate cancer metastatic to bone Pulmonary nodule Essential hypertension Asthma with chronic obstructive pulmonary disease (COPD) GERD (gastroesophageal reflux disease) Obesity Sleep apnea Surgical History (Updated 01/09/24 @ 15:58 by EUGENE Villeda) History of endarterectomy S/P tonsillectomy H/O cervical spine surgery C5/6 fusion S/P arterial stent (2020) Placement of common iliac artery stent bilaterally and right external iliac artery stent S/P arthroscopic knee surgery S/P inguinal hernia repair S/P cholecystectomy S/P rotator cuff repair S/P cataract surgery Family History (Updated 04/02/19 @ 16:31 by Isabella Bernla RN) Father, 80 Mother, at age 82 Diabetes Father Mother CAD (coronary artery disease) Mother Chronic kidney disease (CKD) Father Hypertension Mother Social History Smoking and tobacco/nicotine status: current every day tobacco/nicotine user cigarettes Packs smoked per day: 0.5 Years cigarettes smoked: 50 Alcohol intake: never Substance/Drug Use: never Marital status: Current occupational status: disabled Pertinent Exam Findings alert, oriented x 3, clear to auscultation bilaterally and regular rate & rhythm Conscious Sedation Assessment PATIENT ASSESSED PRIOR TO SEDATION, WITH NO CHANGE NOTED: Yes AIRWAY EVAL/ANESTHESIA PLAN: normal airway, ASA III, Local Anesthesia, Risks, benefits & alternatives of sedation and/or procedure discussed and Patient agrees to continue as planned ADDITIONAL INFORMATION: Moderate sedation Recommendations Risks and benefits of procedure reviewed Surgery/Procedure today (Peripheral angiogram with possible intervention) Coding Level of Care Code Acute Code for Chg Angela
--- NOTE | 2024-10-12 09:14 | PM.PROC ---
Procedure Note: Date of procedure: 10/12/24 Pre-procedure diagnosis: Lifestyle limiting claudication of left lower extremity Post-procedure diagnosis: other (Non-obstructive, moderate peripheral artery disease. 2 vessel runoff to foot) Procedure: Moderate diffuse SFA/ popliteal artery disease. Has 2 vessel runoff to foot. Anterior tibial artery is patent. Severe PAD of right lower extremity Patient will need staged intervention of right lower extremity if he agrees with smoking cessation Performing Provider: Preston Bangura Estimated blood loss (mL): 5 Complications: None Condition: stable Disposition: same day Coding Level of Care Code Acute Code for Christiano Miller
--- NOTE | 2024-10-12 09:23 | SUR.PREOP ---
POST CATH NOTE/SHEATH PULL Received patient from lab systems analyst. Status post peripheral angiogram runoff via the right femoral appoach. Sheath in place at this time. MD wants removed at this time. Removal material gathered and removed at bedside on arrival at MD request. Manual pressure held at site for 20 minutes. No hematoma formation noted at this time. Pulses are CMS + distal to insertion site. Vitals and assessments per flowsheet. Pull time 0855. Hemostasis time 0915. Call light within reach. Verbal post cath instructions went over with the patient/family. They understood well.
--- NOTE | 2024-10-12 12:00 | PC.NURSE ---
Patient arrived to [facility] at approx 1130. Sheath pulled dressing intact. Patient will ambulate at 1330, and discharge at 1500.
== END 2024-10-12 15:30 | disposition home or self-care (01) ==
LOC: CCL 05:59 → CSU 10:41
PROVIDERS: PCP Nurse Practitioner; Visit Provider Internal Medicine
DX: I70.212 Atherosclerosis of native arteries of extremities with intermittent claudication, left leg (principal); I70.201 Unspecified atherosclerosis of native arteries of extremities, right leg; Z95.820 Peripheral vascular angioplasty status with implants and grafts; I10 Essential (primary) hypertension; E66.9 Obesity, unspecified; Z68.41 Body mass index [BMI] 40.0-44.9, adult; Z79.82 Long term (current) use of aspirin; K21.9 Gastro-esophageal reflux disease without esophagitis; J44.9 Chronic obstructive pulmonary disease, unspecified; G47.30 Sleep apnea, unspecified; Z99.89 Dependence on other enabling machines and devices; C61 Malignant neoplasm of prostate; C79.51 Secondary malignant neoplasm of bone; E11.9 Type 2 diabetes mellitus without complications; Z82.49 Family history of ischemic heart disease and other diseases of the circulatory system; F17.210 Nicotine dependence, cigarettes, uncomplicated
CPT/HCPCS: 36415; 75625; 75716; 80048; 85025; 99152; 99153; C1769; C1887; C1894; J1644; J2250; J3010; J7030; J9999; Q0163; Q9967

== ENCOUNTER 2024-10-14 07:33 | Oncology outpatient (recurring) (ONCR) | payer OTHER, SELFPAY ==
[2024-10-14 07:50] LABS: Hematocrit 36.9 % (37-53); Hemoglobin 12.30 g/dL (11.27-16.99); Mean Corpuscular HGB Conc 33.3 g/dL (30-55); Mean Corpuscular Hemoglobin 29.6 pg (27-33); Mean Corpuscular Volume 88.9 fl (82-101); Nucleated Red Blood Cells % 0 %; Platelet Count 289 10^3/cmm (157-399); Red Blood Count 4.15 10^6/uL (3.85-5.65); White Blood Count 9.04 10^3/uL (3.29-11.43)
[2024-10-14 08:19] LABS: Alanine Aminotransferase 10 U/L (0-41); Albumin Level 3.6 g/dL (3.5-5.2); Alkaline Phosphatase 98 U/L (40-130); Anion Gap 11.3 (5-19); Aspartate Amino Transferase 13 U/L (0-40); Blood Urea Nitrogen 16 mg/dL (8-23); Calcium 8.7 mg/dL (8.5-10.5); Carbon Dioxide 27 mmol/L (22-29); Chloride 101 mmol/L (98-107); Creatinine Clr Calc Pharmacy 132.2218; Globulin 3.6 g/dL (1.3-4.6); Glucose 264 mg/dL (65-115); Osmolality Calculated 290 mOsm/kg (285-295); Potassium 4.3 mmol/L (3.5-5.1); Prostate Specific Antigen 0.404 ng/mL (0-4); Sodium 135 mmol/L (136-145); Total Protein 7.2 g/dL (6.6-8.7)
== END 2024-10-18 23:59 | disposition home or self-care (01) ==
PROVIDERS: Internal Medicine Medical Oncology; PCP Nurse Practitioner; Visit Provider Nurse Practitioner Family
DX: I70.202 Unspecified atherosclerosis of native arteries of extremities, left leg (principal); I70.291 Other atherosclerosis of native arteries of extremities, right leg; I70.0 Atherosclerosis of aorta; I70.1 Atherosclerosis of renal artery; I70.8 Atherosclerosis of other arteries; R93.6 Abnormal findings on diagnostic imaging of limbs; K76.0 Fatty (change of) liver, not elsewhere classified; Z90.49 Acquired absence of other specified parts of digestive tract; D73.89 Other diseases of spleen; N28.1 Cyst of kidney, acquired; R93.89 Abnormal findings on diagnostic imaging of other specified body structures; M79.89 Other specified soft tissue disorders; C79.51 Secondary malignant neoplasm of bone; R03.0 Elevated blood-pressure reading, without diagnosis of hypertension; F17.210 Nicotine dependence, cigarettes, uncomplicated; Z95.828 Presence of other vascular implants and grafts; I25.10 Atherosclerotic heart disease of native coronary artery without angina pectoris
CPT/HCPCS: 36591; 80053; 84153; 84403; 85025; 99213; 99214

== ENCOUNTER 2024-10-30 10:54 | Oncology outpatient (recurring) (ONCR) | payer OTHER, SELFPAY ==
[2024-10-30 11:03] VITALS: BP 171/93; PULSE 71; TEMP 36.3
[2024-10-30] MEDS: denosumab 120 mg SDV (Infusion Clinic Only) SUBCUT (11:07)
[2024-10-30] MEDS: leuprolide 22.5 mg Kit IM (11:08)
== END 2024-11-17 23:59 | disposition home or self-care (01) ==
PROVIDERS: PCP Nurse Practitioner; Visit Provider Nurse Practitioner Family
DX: Z51.11 Encounter for antineoplastic chemotherapy (principal); C61 Malignant neoplasm of prostate; C79.51 Secondary malignant neoplasm of bone; I73.9 Peripheral vascular disease, unspecified; I10 Essential (primary) hypertension; I25.10 Atherosclerotic heart disease of native coronary artery without angina pectoris; F17.210 Nicotine dependence, cigarettes, uncomplicated; I42.9 Cardiomyopathy, unspecified
CPT/HCPCS: 96372; 96402; 99214; J0897; J9217

== ENCOUNTER 2024-11-23 11:53 | Oncology outpatient (recurring) (ONCR) | payer OTHER, SELFPAY | END 2024-12-18 23:59 | disposition home or self-care (01) | LOC: ONCMED 11:53 | PROVIDERS: PCP Nurse Practitioner; Visit Provider Nurse Practitioner Family | DX: I70.202 Unspecified atherosclerosis of native arteries of extremities, left leg (principal); I70.291 Other atherosclerosis of native arteries of extremities, right leg; I70.0 Atherosclerosis of aorta; I70.1 Atherosclerosis of renal artery; I70.8 Atherosclerosis of other arteries; R93.6 Abnormal findings on diagnostic imaging of limbs; K76.0 Fatty (change of) liver, not elsewhere classified; Z90.49 Acquired absence of other specified parts of digestive tract; D73.89 Other diseases of spleen; N28.1 Cyst of kidney, acquired; R93.89 Abnormal findings on diagnostic imaging of other specified body structures; M79.89 Other specified soft tissue disorders | CPT/HCPCS: 96523 ==

== ENCOUNTER 2024-12-22 12:26 | Oncology outpatient (recurring) (ONCR) | payer OTHER, SELFPAY | END 2025-01-17 23:59 | disposition home or self-care (01) | LOC: ONCMED 12:26 | PROVIDERS: PCP Nurse Practitioner; Visit Provider Nurse Practitioner Family | DX: Z45.2 Encounter for adjustment and management of vascular access device (principal); Z95.828 Presence of other vascular implants and grafts | CPT/HCPCS: 96523 ==

== ENCOUNTER 2025-02-01 10:15 | Oncology outpatient (recurring) (ONCR) | payer OTHER, SELFPAY ==
[2025-02-01 10:47] LABS: Hematocrit 37.4 % (37-53); Hemoglobin 12.40 g/dL (11.27-16.99); Mean Corpuscular HGB Conc 33.2 g/dL (30-55); Mean Corpuscular Hemoglobin 29.3 pg (27-33); Mean Corpuscular Volume 88.4 fl (82-101); Nucleated Red Blood Cells % 0 %; Platelet Count 307 10^3/cmm (157-399); Red Blood Count 4.23 10^6/uL (3.85-5.65); White Blood Count 9.03 10^3/uL (3.29-11.43)
[2025-02-01 11:10] LABS: Alanine Aminotransferase < 5 U/L (0-41); Albumin Level 3.8 g/dL (3.5-5.2); Alkaline Phosphatase 93 U/L (40-130); Anion Gap 11.2 (5-19); Aspartate Amino Transferase 12 U/L (0-40); Blood Urea Nitrogen 11 mg/dL (8-23); Calcium 9.6 mg/dL (8.5-10.5); Carbon Dioxide 28 mmol/L (22-29); Chloride 103 mmol/L (98-107); Globulin 3.2 g/dL (1.3-4.6); Glucose 221 mg/dL (65-115); Osmolality Calculated 292 mOsm/kg (285-295); Potassium 4.2 mmol/L (3.5-5.1); Prostate Specific Antigen 1.150 ng/mL (0-4); Sodium 138 mmol/L (136-145); Total Protein 7.0 g/dL (6.6-8.7)
[2025-02-01] MEDS: denosumab 120 mg SDV (Infusion Clinic Only) SUBCUT (11:58)
[2025-02-01] MEDS: leuprolide 22.5 mg Kit IM (11:59)
== END 2025-02-17 23:59 | disposition home or self-care (01) ==
PROVIDERS: Internal Medicine Medical Oncology; PCP Nurse Practitioner; Visit Provider Nurse Practitioner
DX: Z51.11 Encounter for antineoplastic chemotherapy (principal); C61 Malignant neoplasm of prostate; C79.51 Secondary malignant neoplasm of bone; R97.20 Elevated prostate specific antigen [PSA]; F17.210 Nicotine dependence, cigarettes, uncomplicated; R03.0 Elevated blood-pressure reading, without diagnosis of hypertension; Z95.828 Presence of other vascular implants and grafts; Z79.899 Other long term (current) drug therapy
CPT/HCPCS: 80053; 84153; 84403; 85025; 96372; 96402; 99214; J0897; J9217

== ENCOUNTER → 2025-02-17 11:14 | Outpatient (BNVA) | payer OTHER, SELFPAY | PROVIDERS: PCP Nurse Practitioner; Visit Provider Nurse Practitioner Family | DX: D48.5 Neoplasm of uncertain behavior of skin (principal); L28.1 Prurigo nodularis; L23.9 Allergic contact dermatitis, unspecified cause; L21.8 Other seborrheic dermatitis; D22.61 Melanocytic nevi of right upper limb, including shoulder; L81.4 Other melanin hyperpigmentation; L57.8 Other skin changes due to chronic exposure to nonionizing radiation | CPT/HCPCS: 11102; 17000; 99213 ==